=== PATIENT | female | born 1935 | race Caucasian/White ===

== ENCOUNTER 2022-02-19 12:06 | Emergency (ER) | payer MEDICARE, SELFPAY ==
[2022-02-19 12:26] VITALS: BP 187/74; PULSE 57; RESP 16; TEMP 36.5; O2SAT 97; BMI 21.0
--- NOTE | 2022-02-19 13:22 | CRLHL7_ITS ---
For Patients: As a result of the Cures Act, medical imaging exams and procedure reports are released immediately into your electronic medical record. You may view this report before your referring provider. If you have questions, please contact your health care provider. INDICATION: Fall and pain. TECHNIQUE: Lumbar spine 3 view COMPARISON: None. FINDINGS: Bones: Diffuse demineralization. No vertebral body height loss. Joints: Multilevel degenerative changes in the form of disc space narrowing, subchondral sclerosis, and marginal osteophyte formation. Grade 1 anterolisthesis of L5 on S1 appears to be the result of pars defects. Partially visualized left hip arthroplasty. Soft tissues: Unremarkable. IMPRESSION: Demineralization and degenerative changes. No vertebral body height loss. Dictated by Dillon Mayfield MD @ 02/19/2022 2:25:39 PM (Electronically Signed)
--- NOTE | 2022-02-19 13:22 | CRLHL7_ITS ---
For Patients: As a result of the Cures Act, medical imaging exams and procedure reports are released immediately into your electronic medical record. You may view this report before your referring provider. If you have questions, please contact your health care provider. INDICATION: Fall and injury. TECHNIQUE: Sacrum and coccyx, 3 views. COMPARISON: None. FINDINGS: Bones: The bones are demineralized. No displaced fracture. Joint spaces: Degenerative changes of the included lumbar spine and both sacroiliac joints. Minimal anterolisthesis of L5 on S1 could be the result of pars defects. Left hip arthroplasty in expected position. Degenerative changes of the right hip. Soft tissues: Unremarkable. IMPRESSION: No acute or significant findings. Dictated by Dillon Mayfield MD @ 02/19/2022 2:26:37 PM (Electronically Signed)
--- NOTE | 2022-02-19 13:41 | ED.NURSE ---
Pt interrupted short story writer during nursing assessment to express her frustration with the wait time. Pt states, Why haven't they taken me for an x-ray, I've been waiting 30 minutes!. Pt states to short story writer that, You need to call in more workers if it's busy. It doesn't look busy!. Pt states she will leave the ER if her x-ray is not done soon. MD aware.
--- OUTSIDE RECORDS SUMMARY | 2022-02-19 14:13 | XMS_ITS | Clinical Summary ---
:1935 Author Organization [employer] [facility] [employer] [facility] [place] [address] Care Team Providers Name Role Phone Temi Ibarra MD Primary Care Provider [phone] Allergies Active Allergy Reactions Severity Noted Date Comments Amlodipine Syncope, Vomiting 04/30/2011 Lisinopril Cough 02/05/2011 cough Penicillins 11/03/2007 Sulfa (Sulfonamide Antibiotics) 8 Medications Medication Sig Dispensed Refills Start End Status Date Date aspirin chewable Chew 81 mg by 0 Active 81 mg chewable mouth once daily tablet with a meal. calcium Take 1 Tablet by 0 Act paris carbonate-vitamin mouth once daily. D3, 500 mg-400 units, (Calcium 500 With D) tablet mv-mn/folic Take 1 Capsule by 0 Active ac/calcium/vit K1 mouth once daily. (WOMEN'S 50 PLUS MULTIVITAMIN ORAL) nitroglycerin Place 1 Tablet 25 tablet. 3 05/14/19 Active (NITROSTAT) 0.4 (0.4 mg) under the 22 mg sublingual tongue every 5 tabletIndications minutes if needed : STEMI involving for Chest Pain. right coronary artery (HC) atorvastatin Take 1 Tablet (40 90 tablet. 3 06/14/19 Active (LIPITOR) 40 mg mg) by mouth at 22 tabletIndications bedtime. : STEMI involving right coronary artery (HC) clopidogreL Take 1 Tablet (75 90 tablet. 3 06/14/19 Active (PLAVIX) 75 mg mg) by mouth once 22 tabletIndications daily. : STEMI involving right coronary artery (HC) alendronate Take 1 Tablet (70 12 Tablet 3 07/25/19 Active (FOSAMAX) 70 mg mg) by mouth once 22 tabletIndications a week in the : Osteoporosis morning. Take on without current empty stomach with pathological full glass of fracture, water every unspecified Saturday. Do not osteoporosis type lie down for 1 hr. triamcinolone APPLY TO AFFECTED 80 g 3 12/23/19 Active (ARISTOCORT; AREA(S) TOPICALLY 22 KENALOG) 0.1 % 3 TIMES DAILY creamIndications: Dermatitis gabapentin TAKE 2 CAPSULES BY 720 Capsule 3 01/23/20 Active (NEURONTIN) 100 MOUTH IN THE 22 mg MORNING 3 CAPSULES capsuleIndication BY MOUTH MIDDAY, s: Paresthesia AND 3 CAPSULES BY MOUTH IN THE EVENING losartan (COZAAR) Take 1 Tablet (100 90 Tablet 3 01/30/20 Active 100 mg mg) by mouth once 22 tabletIndications daily. : Essential hypertension carvediloL Take 1 Tablet 180 Tablet 3 02/13/20 Acti ve (COREG) 12.5 mg (12.5 mg) by mouth 22 tabletIndications two times daily : HTN with meals. (hypertension) losartan (COZAAR) Take 1 Tablet (50 90 Tablet 3 06/14/1901/05 Discontinued 50 mg mg) by mouth once (* Medication tabletIndications daily. Please call adjustment) : STEMI involving the [facility] coronary clinic to schedule artery (HC) your echocardiogram and follow up appointment, thanks carvediloL Take 1 Tablet 180 Tablet 3 07/14/19 Disc ontinued (COREG) 6.25 mg (6.25 mg) by mouth 022 (*Medication tabletIndications 2 times daily with adjustment) : Hypertension meals. gabapentin TAKE 2 CAPSULES BY 720 Capsule 0 01/01/20 Discontinued (NEURONTIN) 100 MOUTH IN THE 022 ( Reorder mg MORNING 3 CAPSULES ( E-cancel not capsuleIndication BY MOUTH MIDDAY, sent)) s: Paresthesia AND 3 CAPSULES BY MOUTH IN THE EVENING Active Problems Problem Noted Date Enlarged and hypertrophic nails 04/21/2020 Claw toe, right 04/21/2020 Lymphocytic colitis 06/02/2019 Overview: flexible sigmoidoscopy 05/2019 lymphocyti c colitis Claw toe, acquired, unspecified laterality 02/12/2019 Diverticulitis of colon (without mention of hemorrhage ) 11/27/2010 Diverticulosis of colon (without mention of hemorrhage ) 11/27/2010 Allergic rhinitis, cause unspecified 08/08/2009 Osteoarthrosis, unspecified whether generalized or loc alized, unspecified 11/03/2007 site Overview: S/P hip replacement Osteoporosis, unspecified 11/03/2007 Overview: Improved after 5 years of fosamax. [address] stopping fosamax and recheck in 2 years. Deepa Suazo M.D. 08/18/2014 8: 52 PM health care maintenance 11/03/2007 Overview: Dexa 2007, osteoporosis, will repeat 201 5. colonoscopy 2005, will get BE in 2011 or 2012 Had shingles about 07/2011. 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 10/27/2018 Diverticulitis of colon (without mention of hemorrhage) 06/0611/21/2009 Bacterial pneumonia, unspecified 10/21/2006 010 Encounters Date Type Specialty Care Team Description 02/12/2022 Office Visit Temi Ibarra (Bp has MD Shannan been high at ho me); Medication Key gement ([facility] states they hav e attempted to re ach out to have a new s cript sent to them fo r the Carvedilol as i nsurance wants it sent t here rather than [facility] 02/12/2022 Travel 02/05/2022 Diana Martin, Arjunill Be uest; CARVEDILOL 01/29/2022 Telephone Temi Ibarra MD 01/29/2022 Nurse/Clinic Staff Temi Ibarra Blood Pressure Only MD Shannan 01/22/2022 Office Visit Temi Ibarra Medication M anagement; MD Shannan Sleep Problem ( Been having problems with sleep) 01/22/2022 Travel 12/27/2021 Refill FredTemi madrid MD (Gabapentin) 12/19/2021 Refill FredTemi madrid MD (Triamcinolone) 11/29/2021 Nurse/Clinic Staff Immunizat ion/Injection Only (COVID-19 vacci ne) 11/29/2021 Travel from Last 3 Months Immunizations Name Administration Dates Next Due AMB INFLUENZA IIV3 (AGE 65+ YRS) PF 02/11/2018, 02/26/2017 (Flu Clinic Only) AMB Influenza, IIV3 (Age >=3 03/11/2013, 03/02/2010, 009, years)(Flu Clinic Only) 03/08/2008 Amb Influenza, Inact (High-dose 01/28/2020 Quadrivalent) (Flu Clinic Only) Amb Influenza, Inact (High-dose) (Flu 03/01/2016 Clinic Only) COVID-19 vaccine ([employer] 11/29/2021 30mcg/0.3mL) 12YO+ ALEXANDRO-SUCROSE PF, MDV COVID-19 vaccine ([employer] 03/01/2021, 07/02/2020, 30mcg/0.3mL) PF, MDV Influenza A (H1N1), Inactivated (Age 0105/16/2009 >=3 Years) Influenza, High-dose Inactivated 03/16/2015, 01/18/2014 Influenza, IIV3 (Age >=3 years) 03/04/2012, 02/05/2011, 03/06, 03/13/2006, 03/13/2005, 02/24/2004, 03/04/2003 Influenza, Inactivated AIIV4 (Age 65+ 01/22/2022, 02/22/2021 Years) Preserv Free Pneumococcal Poly,23-Valent 11/17/2003 (Pneumovax) Pneumococcal conj 13-Valent (Prevnar 08/17/2014 13) Td (Age >=7 Years) 08/11/1999 Td, Preservative Free (age >= 7 11/27/2010 Years) Tdap 03/04/2012 Zoster (Shingrix-RZV, recombinant) 11/12/2018, 09/01/2018 Zoster (Zostavax-ZVL, live) 07/27/2016 Family History Medical History Relation Name Comments Heart Disease Father Cancer-breast Other x 2 Maternal Cancer-breast Sister 2 Relation Name Status Comments Father (Age 56) [place] Mother (Age 86) liver cancer Other Sister 1 multiple myeloma Sister 2 Social History Tobacco Use Types Packs/Day Years Used Date Former Smoker Smokeless Tobacco: Never Used Tobacco Cessation: Counseling Given: Yes Comments: Quit smoking 17 years ago 10/01 Alcohol Use Standard Drinks/Week Comments Yes 0 (1 standard drink = 0.6 oz pure alcoho l) rarely Alcohol Habits Answer Date Recorded How often do you have a drink containing alcohol? Monthly or less 09/02/2018 How many drinks containing alcohol do you have on a 1 or 2 09/02/2018 typical day when you are drinking? How often do you have six or more drinks on one Never 09/02/2018 occasion? Comment: rarely 10/29/2017 Sex Assigned at Date Recorded Not on file COVID-19 Exposure Response Date Recorded In the last 10 days, have you been in contact with No / Unsu re 02/12/2022 2:19 PM CDT someone who was confirmed or suspected to have Coronavirus/COVID-19? Obstetrics History Para Term AB IAB SAB Ectopic Multiple Living Live Births 6 6 5 1 5 Date Outcome GA Total Labor/2nd/3rd Weight Sex Delivery Anes PTL Pamela A 1 A5 Name Clin Labor Term Term Term Term Term Last Filed Vital Signs Vital Sign Reading Time Taken Comments Blood Pressure 193/98 02/12/2022 2:36 PM CDT home cuff Pulse 61 02/12/2022 2:36 PM CDT Temperature 36.9 ??C (98.5 ??F) 05/16/2021 8:00 AM IN STORE MARKETING ASSOCIATE Respiratory Rate 20 05/29/2021 12:00 PM IN STORE MARKETING ASSOCIATE Oxygen Saturation 99% 02/12/2022 2:33 PM CDT Inhaled Oxygen Concentration - - Weight 52.8 kg (116 lb 6.4 oz) 02/12/2022 2:33 PM CDT Height 157.5 cm (5' 2) 05/29/2021 12:00 PM IN STORE MARKETING ASSOCIATE Body Mass Index 21.29 05/29/2021 12:00 PM IN STORE MARKETING ASSOCIATE Plan of Treatment Upcoming Encounters Date Type Specialty Care Team Description 04/09/2022 Orders Only [facility] [place] 04/09/2022 Orders Only [facility] [place] Universal Grinder Operator 04/17/2022 Office Visit Reese Newsome MD [address] [place] [address] [place] [address], [place] [address] (Wo rk) Health Maintenance Due Date Last Done Comments Medicare Wellness for age 65+ 09/02/2019 09/02/2018, 2016 BMI (ht and wt on same day) for 10/12/2021 10/12/2020, 09/04, age 18+ 05/08/2019, Additional history exists COVID-19 vaccine series (5 - 01/24/2022 11/29/2021, 021, Booster for Pfizer series) 07/02/2020, Additiona l history exists Tetanus booster 03/04/2022 03/04/2012, 11/27/2010, 08/11/1999 Depression screening for age 12+ 05/31/2022 05/31/2021, , 05/29/2021, Additional history exists Tdap Completed 03/04/2012 Pneumococcal series for age 65+ Completed 08/17/2014, 11/03 Zoster (shingles) series for age Completed 11/12/2018, , 50+ 07/27/2016 DEXA/DXA scan for age 65+ Completed 01/27/2019, 08/20/2016 , 08/17/2014, Additional history exists Influenza for age 65+ Completed 01/22/2022, 02/22/2021, 01/28/2020, Additional history exists Procedures Procedure Name Priority Date/Time Associated Diagnosis Comme nts CBC WITH AUTO Routine 02/12/2022 3:05 PM HTN (hyperten jaymie) Results for this DIFFERENTIAL CDT STEMI involving procedure ar e in right coronary the results artery (HC) section. HEPATIC FUNCTION Routine 02/12/2022 3:05 PM HTN (hyperte nsion) Results for this PANEL CDT STEMI involving procedure ar e in right coronary the results artery (HC) section. LIPID PANEL W REFLEX Routine 02/12/2022 3:05 PM HTN (hyp ertension) Results for this MEASURED LDL CDT STEMI involving procedure ar e in right coronary the results artery (HC) section. CBC WITH AUTO Routine 02/12/2022 3:05 PM HTN (hyperten jaymie) Results for this DIFFERENTIAL CDT STEMI involving procedure ar e in right coronary the results artery (HC) section. BASIC METABOLIC PANEL Routine 02/12/2022 3:05 PM Unspecified Results for this CDT essential procedure are i n hypertension the results section. from Last 3 Months Results (ABNORMAL) CBC WITH AUTO DIFFERENTIAL (02/12/2022 3:05 PM CDT) [facility] Method Time Signature WHITE BLOOD 7.4 4.5 - 02/12/2022 [facility] COUNT 11.0 3:09 PM T [place] [facility] RED BLOOD COUNT 4.85 4.00 - 02/12/2022 [facility] 5.20 3:09 PM T [facility] CLINIC HEMOGLOBIN 14.4 12.0 - 02/12/2022 [facility] 16.0 g/dL 3:09 PM [facility] HEMATOCRIT 43.7 33.0 - 02/12/2022 [facility] 51.0 % 3:09 PM [facility] MCV 90 80 - 100 02/12/2022 [facility] fL 3:09 PM [facility] MCH 29.7 26.0 - 02/12/2022 [facility] 34.0 pg 3:09 PM [facility] MCHC 33.0 32.0 - 02/12/2022 [facility] 36.0 g/dL 3:09 PM [facility] RDW 15.4 11.5 - 02/12/2022 [facility] 15.5 % 3:09 PM [facility] PLATELET COUNT 210 140 - 440 [facility]cu 3:09 PM [facility] MPV 11.4 (H) 6.5 - 02/12/2022 [facility] 11.0 fL 3:09 PM [facility] % NEUT 67.0 % 02/12/2022 [facility] 3:09 PM T [facility] % LYMPH 20.2 % 02/12/2022 [facility] 3:09 PM T [facility] % MONO 9.4 % 02/12/2022 [facility] 3:09 PM T [facility] % EOS 3.3 % 02/12/2022 [facility] 3:09 PM CDT [facility] % BASO 0.1 % 02/12/2022 [facility] 3:09 PM CDT [facility] ABSOLUTE 4.9 1.7 - 7.0 02/12/2022 [facility] NEUTROPHILS thou/cu 3:09 PM CDT [facility] CLINIC ABSOLUTE 1.5 0.9 - 2.9 02/12/2022 [facility] LYMPHOCYTES thou/cu 3:09 PM CDT [facility] CLINIC ABSOLUTE 0.7 <0.9 02/12/2022 [facility] MONOCYTES thou/cu 3:09 PM CDT [facility] CLINIC ABSOLUTE 0.2 <0.5 02/12/2022 [facility] EOSINOPHILS thou/cu 3:09 PM CDT [facility] CLINIC ABSOLUTE 0.0 <0.3 02/12/2022 [facility] BASOPHILS thou/cu 3:09 PM CDT [facility] CLINIC Specimen Anatomical Collection Method / Collection Time Recei good Time (Source) Location / Volume Laterality Blood BLOOD SPECIMEN / Venipuncture / 02/12/2022 3:05 2021 3:06 Unknown Unknown PM CDT PM CDT Temi Ibarra MD HEMATOLOGY Performing Organization Address City/State/ZIP Code Phon e Number [facility] [address] [place] [address] LIPID PANEL W REFLEX MEASURED LDL (02/12/2022 3:05 PM CDT) [facility] Method Time Signature CHOLESTEROL,TOTAL 126 100 - 199 02/14/2022 [facility] mg/dL 3:33 PM CDT [facility] TRIGLYCERIDES 114 <150 02/14/2022 [facility] mg/dL 3:33 PM CDT [facility] HDL CHOLESTEROL 43 >40 mg/dL 02/14/2022 [facility] 3:33 PM CDT [facility] NON-HDL 83 <145 02/14/2022 [facility] CHOLESTEROL mg/dl 3:33 PM CDT [facility] CHOL/HDL RATIO 2.93 <4.50 02/14/2022 [facility] 3:33 PM CDT [facility] LDL CHOLESTEROL 60 <=130 02/14/2022 [facility] mg/dL 3:33 PM CDT [facility] VLDL CHOLESTEROL 23 <=30 02/14/2022 [facility] mg/dL 3:33 PM CDT [facility] PROVIDER ORDERED RANDOM 02/14/2022 [facility] STATUS 3:33 PM CDT [facility] Specimen Anatomical Collection Method / Collection Time Recei good Time (Source) Location / Volume Laterality Blood BLOOD SPECIMEN / Venipuncture / 02/12/2022 3:05 2021 3:06 Unknown Unknown PM CDT PM CDT Temi Ibarra MD CHEMISTRY Performing Organization Address City/State/ZIP Code Phon e Number [facility] [address] [place] [address] [facility] LAB[facility]ORY HEPATIC FUNCTION PANEL (02/12/2022 3:05 PM CDT) P athologist Signature ALBUMIN 3.8 3.2 - 4.6 02/14/2022 [facility] g/dL 3:33 PM CDT [facility] PROTEIN,TOTAL 6.5 6.0 - 8.0 02/14/2022 [facility] g/dL 3:33 PM CDT [facility] GLOBULIN 2.7 2.0 - 3.7 02/14/2022 [facility] g/dL 3:33 PM CDT [facility] A/G RATIO 1.4 1.0 - 2.0 02/14/2022 [facility] 3:33 PM CDT [facility] BILIRUBIN,TOTAL 0.5 0.2 - 1.2 02/14/2022 [facility] mg/dL 3:33 PM CDT [facility] BILIRUBIN,DIRECT 0.2 0.1 - 0.5 02/14/2022 [facility] mg/dL 3:33 PM CDT [facility] BILIRUBIN,INDIRE 0.3 0.2 - 0.8 02/14/[address] [facility] [address] mg/dL 3:33 PM CDT [facility] ALK PHOSPHATASE 74 50 - 136 02/14/2022 [facility] IU/L 3:33 PM CDT [facility] ALT (SGPT) 19 8 - 45 02/14/2022 [facility] IU/L 3:33 PM CDT [facility] AST (SGOT) 24 2 - 40 02/14/2022 [facility] IU/L 3:33 PM CDT [facility] Specimen Anatomical Collection Method / Collection Time Recei good Time (Source) Location / Volume Laterality Blood BLOOD SPECIMEN / Venipuncture / 02/12/2022 3:05 2021 3:06 Unknown Unknown PM CDT PM CDT Temi Ibarra MD CHEMISTRY Performing Organization Address City/State/ZIP Code Phon e Number [facility] [address] [place] [id number] [facility] LABORATORY (ABNORMAL) BASIC METABOLIC PANEL (02/12/2022 3:05 PM CDT) P athologist Signature SODIUM 143 135 - 145 02/14/2022 [facility] mmol/L 3:31 PM CDT [facility] POTASSIUM 4.9 3.5 - 5.0 02/14/2022 [facility] mmol/L 3:31 PM CDT [facility] CHLORIDE 107 98 - 110 02/14/2022 [facility] mmol/L 3:31 PM CDT [facility] CO2,TOTAL 26 21 - 31 02/14/2022 [facility] mmol/L 3:31 PM CDT [facility] ANION GAP 10 5 - 18 02/14/2022 [facility] 3:31 PM CDT [facility] GLUCOSE 90 65 - 100 02/14/2022 [facility] mg/dL 3:31 PM CDT [facility] CALCIUM 9.4 8.5 - 10.5 02/14/2022 [facility] mg/dL 3:31 PM CDT [facility] BUN 20 8 - 25 02/14/2022 [facility] mg/dL 3:31 PM CDT [facility] CREATININE 0.80 0.57 - 02/14/2022 [facility] 1.11 mg/dL 3:31 PM CDT [facility] BUN/CREAT RATIO 25 (H) 10 - 20 02/14/2022 [facility] 3:31 PM CDT [facility] eGFR 72 (L) >90 02/14/2022 [facility] mL/min/1.7 3:31 PM CDT [facility] 3m2 [facility] Comment: As of 2021, eGFR is calcu lated by the CKD-EPI creatinine equation without race adjustment. eGFR can be inf luenced by muscle mass, exercise, and diet. The reported eGFR is an estimation only and is only applicable if the renal function is stable. Specimen Anatomical Collection Method / Collection Time Recei good Time (Source) Location / Volume Laterality Blood BLOOD SPECIMEN / Venipuncture / 02/12/2022 3:05 2021 3:06 Unknown Unknown PM CDT PM CDT Temi Ibarra MD CHEMISTRY Performing Organization Address City/State/ZIP Code Phon e Number [facility] [address] [place] [address] [facility] [address] LABORATORY from Last 3 Months Insurance Payer Benefit Plan / Subscriber ID Effective Dates Phone Addre ss Type Group [facility] MR [id number] 2021-Present [address] [address] [place] [address] Advance Directives Latest Code Status on File Code Status Date Activated Date Inactivated Comments DNR 05/13/2021 4:25 PM 05/16/2021 3:23 PM Code Status Discussion: Reviewed Preferences Full Code 05/12/2021 2:01 PM 05/13/2021 4:25 PM Code Status Discussion: Reviewed Preferences Care Teams Infrastructure Manager Relationship Specialty Start Date End Date Temi Ibarra MD PCP - General Family Practice 06/25/17 [address] [place] [address]
--- NOTE | 2022-02-19 14:38 | ED_ITS ---
HPI - Fall General Date Seen: 02/19/22 Chief Complaint: Fall/Minor Trauma Stated Complaint: Lower back/spine pain Time Seen by Provider: 02/19/22 13:03 Source: patient Mode of arrival: ambulatory Limitations: no limitations History of Present Illness HPI Narrative: Patient is a delightful 86-year-old female who fell on her buttocks approximately 1 week ago, she has had pain whenever she sits but there is no pain when she stands, which she presses over her sacral area she notices some some discomfort. She denies any numbness tingling weakness going into her legs, there is no bowel or bladder symptoms. She fell backwards while she was doing some gardening, onto the ground. No other injuries reported, she did call her doctor but was unable to go in and be seen, so came to the emergency department. She has been trying some Aleve twice daily for this and it has been helping. There is a history of osteoporosis and she is on medication for this, aside she tells me that she does have high blood pressure and is working with her doctor in trying to get this under control with her next appointment approximately 2 weeks MD complaint: fall Related Data Home Medications Medication Instructions Recorded Confirmed alendronate 70 mg tablet 70 mg PO .weekly 02/19/22 02/19/22 aspirin 81 mg capsule 81 mg PO DAILY 02/19/22 02/19/22 atorvastatin 40 mg tablet 40 mg PO QHS 02/19/22 02/19/22 calcium carbonate 400 mg calcium 400 mg PO DAILY 02/19/22 02/19/22 (1,000 mg) chewable tablet carvedilol 12.5 mg tablet 12.5 mg PO Q12H 02/19/22 02/19/22 clopidogrel 75 mg tablet 75 mg PO DAILY 02/19/22 02/19/22 gabapentin 100 mg capsule 200 mg PO TID 02/19/22 02/19/22 glucosamine NOg-mzx-hmcnfwtixvz 1 tab PO DAILY 02/19/22 02/19/22 500 mg-167 mg-400 mg tablet losartan 100 mg tablet 100 mg PO DAILY 02/19/22 02/19/22 multivitamin 1 tab PO DAILY 02/19/22 02/19/22 Allergies Allergy/AdvReac Type Severity Reaction Status Date / Time Sulfa (Sulfonamide Allergy Mild Nausea Verified 02/19/22 12:21 Antibiotics) Penicillins Allergy Unknown Rash Verified 02/19/22 12:21 Review of Systems Status of ROS: Reports: 6 or more systems reviewed and unremarkable except as noted in History and below [facility] Social History Smoking Status: Former smoker What tobacco products do you use: cigarettes Smoking quit date/years: <= 15 years ago Do you use any of these nicotine containing products: None Second hand tobacco smoke exposure: No How often do you have a drink containing alcohol: never AUDIT-C Alcohol total score: 0 Non-prescribed substance use: denies use service: No Exam Narrative: Exam Narrative: Patient is delightful seen in room 7 in no apparent distress she is sitting on the gurney, she is able to stand and walk normally for me heel and toe walking are normal, forward flexion is hands within 6 in of the floor, her extensions normal lateral flexion and rotation all normal she does have some scoliosis noted of her spine. On palpation there is no tenderness to palpation or percussion over the spine itself lumbar thoracic, but over her sacrum she does have some mild tenderness to percussion. There is no bruising noted, but no other abnormality, SLR is are negative to 90? sitting, augmentation reveals no increased response, and her knee jerks and ankle jerks are 0/4 bilaterally with normal power in her extremities. Pulses are normal, sensation is normal all the signature dermatomal areas. Const: Vital Signs, click to edit/add: Vital Signs - 24 hr 02/19/22 12:26 Temperature 97.7 F Pulse Rate [Pulse Oximeter] 57 L Respiratory Rate 16 Blood Pressure [Ri ght Upper Arm] 187/74 H Pulse Oximetry 97 Oxygen Delivery Me thod Room Air Course Reevaluation(s) Reevaluation #1: I saw her and evaluated her x-rays of her lumbar spine two view, and sacrum two view. which sure show obvious osteopenia. There is some LF 5 S1 narrowing. So me sclerosis, no obvious significant compression deformities are noted, or malalignment is knee seen. No fracture seen, but sacral insufficiency fracture cannot be ruled out. Vital Signs Vital signs: Initial Vital Signs Temperature 97.7 F 02/19/22 12:26 Temperature Source Temporal Artery Scan 02/19/22 12:26 Pulse Rate 57 L 02/19/22 12:26 Pulse Rhythm 02/19/22 12:26 Pulse Strength 3+ Normal 02/19/22 12:26 Respiratory Rate 16 02/19/22 12:26 Blood Pressure 187/74 H 02/19/22 12:26 Blood Pressure Mean 111 02/19/22 12:26 Blood Pressure Position Sitting 02/19/22 12:26 Pulse Oximetry 97 02/19/22 12:26 Oxygen Delivery Method 02/19/22 12:26 Vital Signs Temperature 97.7 F 02/19/22 12:26 Pulse Rate 57 L 02/19/22 12:26 Respiratory Rate 16 02/19/22 12:26 Blood Pressure 187/74 H 02/19/22 12:26 Pulse Oximetry 97 02/19/22 12:26 Oxygen Delivery Method 02/19/22 12:26 Temperature 97.7 F 02/19/22 12:26 Pulse Rate 57 L 02/19/22 12:26 Respiratory Rate 16 02/19/22 12:26 Blood Pressure 187/74 H 02/19/22 12:26 Pulse Oximetry 97 02/19/22 12:26 Oxygen Delivery Method 02/19/22 12:26 MDM - Fall MDM Narrative Medical decision making narrative: Patient is seen and assessed, consideration is given for multiple diagnosis which include abdominal aortic aneurysm, spinal stenosis, lumbar compression fracture, other type of lumbar fracture, sacral superficially fracture, pelvic fracture, hip fracture, cauda equina syndrome among others. Medical Records Attestation: I reviewed the patient's medical records. Imaging Data Lumbar spine: Attestation: I have reviewed the pertinent imaging results. My impression: No acute abnormality, chronic findings as discussed above. Discharge Plan Discharge Clinical Impression: Sacral insufficiency fracture Patient Disposition: Home, Self-Care Condition: Stable Additional Instructions: Home rest you can take Tylenol 650 mg in the morning, and then may take your Tylenol p.m. at night time. In you to take your leave as he needed. And follow-up with Dr. Ibarra in 2 weeks for recheck. You are right that this will just take some time to heal. Usually the discomfort lasts anywhere from 6-12 months with slow improved Prescriptions: No Action carvedilol 12.5 mg tablet 12.5 mg PO Q12H clopidogrel 75 mg tablet 75 mg PO DAILY Label Comments: TAKE 1 TABLET BY MOUTH DAILY losartan 100 mg tablet 100 mg PO DAILY atorvastatin 40 mg tablet 40 mg PO QHS gabapentin 100 mg capsule 200 mg PO TID Label Comments: 200am, 300mg afternoon, 300mg qhs alendronate 70 mg tablet 70 mg PO .weekly aspirin 81 mg capsule 81 mg PO DAILY multivitamin Tablet 1 tab PO DAILY glucosamine TXs-udy-[id number] 500-167-400 mg tablet 1 tab PO DAILY Rx Instructions: give with meal/snack calcium carbonate 400 mg calcium (1,000 mg) tablet,chewable 400 mg PO DAILY Follow Up/Referrals: Temi Ibarra MD [Primary Care Provider] - Stand Alone [facility]
== END 2022-02-19 14:47 | disposition home or self-care (01) ==
PROVIDERS: Emergency Provider Family Medicine; PCP Family Medicine
DX: M48.48XA Fatigue fracture of vertebra, sacral and sacrococcygeal region, initial encounter for fracture (principal); W18.39XA Other fall on same level, initial encounter; Y92.89 Other specified places as the place of occurrence of the external cause
CPT/HCPCS: 72100; 72220; 99283

== ENCOUNTER 2022-02-26 17:47 | Emergency (ER) | payer MEDICARE, SELFPAY ==
[2022-02-26] VITALS (12 sets, daily range): BP systolic 163–222; BP diastolic 70–95; PULSE 48–60; RESP 16–18; TEMP 36.3; O2SAT 96–98; BMI 21.0
--- NOTE | 2022-02-26 18:10 | ED_ITS ---
HPI - General Adult General Time Seen by Provider: 18:11 Date Seen: 02/26/22 Chief complaint: High Blood Pressure Stated complaint: Very High BP, Feet Tingling Time Seen by Provider: 02/26/22 18:08 Source: patient, RN notes reviewed and old records reviewed Mode of arrival: ambulatory Limitations: no limitations History of Present Illness HPI narrative: Nora is a very pleasant 86-year-old female with a history of STEMI, bradycardia intubation and flying to [place] in May of this year who comes to the emergency room for elevated blood pressures. Patient states that her blood pressure has been elevated over the past month and that Dr. Ibarra of the [facility] has been ?working on it?. She is currently on carvedilol and losartan. She notes that she noticed her blood pressure was elevated at home and had a dull slight headache on the top of her head. She denied any visual changes with this. She adamantly denies any chest pain or shortness of breath. She does state that she feels ?shaky all over?. She also notes that there is tingling on top of her feet. Upon further discussion patient was here within the past few days after falling onto the ground and hurting her low back. She was told that she had a fracture line by the physician. She has been taking Tylenol and Aleve every 5 hours for low back discomfort. Has not noticed any lower extremity edema but feels like she has been retaining some fluid. She has not been short of breath. She states that she has a tingling on the top of both feet. Again patient denies any visual changes. No difficulty with speech or movement. No chest pain, no abdominal pain. Related Data Home Medications Medication Instructions Recorded Confirmed alendronate 70 mg tablet 70 mg PO .weekly 02/19/22 02/19/22 aspirin 81 mg capsule 81 mg PO DAILY 02/19/22 02/19/22 atorvastatin 40 mg tablet 40 mg PO QHS 02/19/22 02/19/22 calcium carbonate 400 mg calcium 400 mg PO DAILY 02/19/22 02/19/22 (1,000 mg) chewable tablet carvedilol 12.5 mg tablet 12.5 mg PO Q12H 02/19/22 02/19/22 clopidogrel 75 mg tablet 75 mg PO DAILY 02/19/22 02/19/22 gabapentin 100 mg capsule 200 mg PO TID 02/19/22 02/19/22 glucosamine YKy-mbw-yipfusvkkwa 1 tab PO DAILY 02/19/22 02/19/22 500 mg-167 mg-400 mg tablet losartan 100 mg tablet 100 mg PO DAILY 02/19/22 02/19/22 multivitamin 1 tab PO DAILY 02/19/22 02/19/22 Allergies Allergy/AdvReac Type Severity Reaction Status Date / Time Sulfa (Sulfonamide Allergy Mild Nausea Verified 02/19/22 12:21 Antibiotics) Penicillins Allergy Unknown Rash Verified 02/19/22 12:21 Review of Systems Status of ROS: Reports: 10 or more systems reviewed and unremarkable except as noted in History and below Const: Denies: fever or chills Eyes: Denies: change in vision or blurry vision ENMT: Denies: throat pain, neck pain, difficulty swallowing or vertigo Cardio: Denies: chest pain, palpitations, edema, swelling of feet/ankles or shortness of breath with exertion Resp: Denies: shortness of breath, cough or wheezing GI: Denies: abdominal pain, nausea, vomiting, diarrhea or difficulty swallowing : Denies: painful urination or urinary frequency Musculo: Reports: back pain (Low back); Denies: neck pain Neuro: Reports: headache (Very mild and on the top of her head.) and other (Tingling on the dorsum of both feet.); Denies: dizziness, vertigo, confusion, behavioral changes or slurred speech Endo: Denies: excessive urination (Describes decreased urination) Allergy/Immuno: Denies: wheezing PFSH PFSH Social History Smoking Status: Former smoker What tobacco products do you use: cigarettes Smoking quit date/years: <= 15 years ago Do you use any of these nicotine containing products: None Second hand tobacco smoke exposure: No How often do you have a drink containing alcohol: never AUDIT-C Alcohol total score: 0 Non-prescribed substance use: denies use service: No Exam Narrative: Exam Narrative: Patient is alert and oriented. Very pleasant woman. Lively and engaging in conversation. Pupils are equal round reactive. EOM is full. Oral cavity with moist mucous membranes. Face is symmetrical. Neck is supple. Heart with a regular rhythm. Slightly bradycardic rate. No additional heart sounds. Lungs are clear bilaterally. Abdomen soft nontender. No pulsating mass. Lower extremities without edema. Sensation is intact on the dorsum of both feet. Moving all extremities. Pedal pulses are intact both both feet and are symmetrical. Retinal examination shows no flame hemorrhages or edema. Const: Vital Signs, click to edit/add: Vital Signs - 24 hr 02/26/22 17:56 02/26/22 18:22 02/26/22 19:24 Temperature 97.3 F L Pulse Rate Pulse Rate [Right Pulse Oximeter] 57 L 53 L Respiratory Rate 18 16 Blood Pressure Blood Pressure [Ri ght Upper Arm] 222/90 H 184/77 H Pulse Oximetry 97 98 98 Oxygen Delivery Me thod Room Air Room Air 02/26/22 19:32 02/26/22 20:05 02/26/22 20:18 Temperature Pulse Rate 60 48 L Pulse Rate [Right Pulse Oximeter] Respiratory Rate 16 16 Blood Pressure 180/70 H 185/94 H 177/72 H Blood Pressure [Ri ght Upper Arm] Pulse Oximetry 98 97 96 Oxygen Delivery Me thod 02/26/22 20:32 02/26/22 20:47 Temperature Pulse Rate 51 L 51 L Pulse Rate [Right Pulse Oximeter] Respiratory Rate Blood Pressure 169/81 H 181/78 H Blood Pressure [Ri ght Upper Arm] Pulse Oximetry 96 96 Oxygen Delivery Me thod Course Reevaluation(s) Reevaluation #1: Patient has been resting and states that she is actually feeling much better. She does continue to state that her bottom of her feet bilaterally are tingling. I do question her about feeling weak when she is walking and she states that she does. She states that she has a fracture in her back although I did not see that on her initial x-rays. I think that if she has lower extremity symptoms we should get a CT noncontrast of the lumbar spine. Reevaluation #2: Without any interventions patient's blood pressure has dropped to 184 systolic. She has had complete resolution of her headache. No chest pain. Reevaluation #3: Patient's blood pressure now 164 systolic. No complaints at this time. Vital Signs Vital signs: Initial Vital Signs Temperature 97.3 F L 02/26/22 17:56 Temperature Source Temporal Artery Scan 02/26/22 17:56 Pulse Rate 57 L 02/26/22 17:56 Respiratory Rate 18 02/26/22 17:56 Blood Pressure 222/90 H 02/26/22 17:56 Blood Pressure Mean 134 02/26/22 17:56 Blood Pressure Position Sitting 02/26/22 17:56 Pulse Oximetry 97 02/26/22 17:56 Oxygen Delivery Method 02/26/22 17:56 Vital Signs Temperature 97.3 F L 02/26/22 17:56 Pulse Rate 57 L 02/26/22 17:56 Respiratory Rate 18 02/26/22 17:56 Blood Pressure 222/90 H 02/26/22 17:56 Pulse Oximetry 97 02/26/22 17:56 Oxygen Delivery Method 02/26/22 17:56 Temperature 97.3 F L 02/26/22 17:56 Pulse Rate 51 L 02/26/22 20:47 Respiratory Rate 16 02/26/22 20:05 Blood Pressure 181/78 H 02/26/22 20:47 Pulse Oximetry 96 02/26/22 20:47 Oxygen Delivery Method 02/26/22 19:24 Medical Decision Making MDM Narrative Medical decision making narrative: 1. Hypertension-patient had significantly elevated blood pressure upon her presentation 222/90. Without any interventions blood pressure dropped to 180 shortly there afterwards and down to 164 at 1 point. Patient has had complete resolution of her headache and has no evidence of end organ damage. Her troponin is negative x2. Her EKG does show ST abnormality in the inferior lateral leads, less than 2 mm. I do not believe that this represents ischemia. As patient is feeling better, has never had chest pain. At this time likely blood pressure is secondary to NSAID use. Patient was using Aleve every 5 hours. I did explain that this is acute 12 hour medication but that I would rather she not take it on a continual basis. She agrees with that and I do not think we need to have any further medication tonight. Would recommend however follow-up with her primary MD for a recheck of blood pressure. Of course if she has worsening symptoms upon returning home would have her return to the emergency room. At this time all symptoms have dissipated. 2. Low back pain-patient has no evidence of spine fracture on CT. CT ordered because patient had told me she had a compression fracture and she was experiencing tingling of the feet. However now she tells me that since her heart attack in May she has had tingling of the dorsum of both feet. And that it is more prominent tonight but it is not new. She has full send of motor and sensation at this time. For pain in her back she may use Tylenol. I did offer her a low dose of oxycodone but she is declining at this time. Would recommend ice in lieu of heat. She will need to follow up with her primary MD for ongoing pain needs. Radiological over-read from previous sacrum and lumbar spine show no fractures. Patient is informed of this tonight. 3. Disposition-home with her . Return to the emergency room for worsening symptoms, especially changes in vision, return of headache, increasing blood pressure or chest pain. Note chest x-ray radiological read suggests infiltrate. Patient has no cough, reassuring oxygen levels and is clear to auscultation at this time. Recheck of blood pressure prior to discharge improved. Did explain to patient and her that with elevated blood pressure as high as 222 we would not bring this down rapidly. But rather look for a reduction of approximately 20%. This is been achieved without any medications. They do understand and will follow up with primary MD. I would expect blood pressure to continue to fall as a leave use is discontinued. Medical Records Medical records reviewed: Yes I reviewed the patient's medical records Lab Data Lab results reviewed: Yes I reviewed the patient's lab results Labs: Lab Results 02/26/22 02/26/22 02/26/22 Range/Units 19:16 19:16 19:16 WBC 6.29 (4.50-11.00) K/uL RBC 4.71 (4.00-5.20) m/uL Hgb 13.8 (12.0-16.0) gm/dL Hct 42.9 (33.0-51.0) % MCV 91 (80-100) fL MCH 29 (26-34) pg MCHC 32 (32-36) gm/dL RDW Coeff of Garrick 14.7 (11.5-15.5) % Plt Count 186 (140-440) K/uL Neut % (Auto) 67.2 (42.0-72.0) % Lymph % (Auto) 20.7 (20-44) % [place] % (Auto) 8.4 (0.0-11.0) % Eos % (Auto) 3.2 (0.0-7.0) % Baso % (Auto) 0.3 (0.0-3.0) % Neut # (Auto) 4.23 (1.7-7.0) K/uL Lymph # (Auto) 1.30 (0.90-2.90) K/uL [place] # (Auto) 0.50 (0.00-0.90) K/UL Eos # (Auto) 0.20 (0.00-0.50) K/uL Baso # (Auto) 0.02 (0.00-0.30) K/uL Abs Immat Gran (auto) 0.01 (0.00-0.30) K/uL Sodium 139 (135-149) mmol/L Potassium 3.9 (3.6-5.1) mmol/L Chloride 105 (96-114) mmol/L Carbon Dioxide 28 (20-32) mmol/L BUN 20 (7-30) mg/dL Creatinine 0.7 (0.5-1.5) mg/dL Estimated Creat Clear 31.94 Estimated GFR 84 ml/min Glucose 98 (60-115) mg/dL Calcium 9.5 (8.4-10.6) mg/dL Total Bilirubin 0.5 (0.1-1.5) mg/dL AST 28 (12-35) U/L ALT 18 (4-35) U/L Alkaline Phosphatase 102 (40-150) U/L Troponin I < 0.01 L (0.01-0.04) ng/mL Total Protein 6.7 (6.0-8.3) g/dL Albumin 4.1 (3.3-5.0) g/dL Urine Color Yellow (Yellow) Urine Appearance Clear (Clear) Urine pH 7.0 (5.0-8.5) Ur Specific [place] 1.010 (1.000-1.030) Urine Protein Negative (Negative) Urine Glucose (UA) Negative (Negative) Urine Ketones Negative (Negative) Urine Blood Trace-intact A (Negative) Urine Nitrite Positive A (Negative) Urine Bilirubin Negative (Negative) Urine Urobilinogen 0.2 (0.2-1.0) Ur Leukocyte Esterase Trace A (Negative) Urine RBC 0-2 (0-2) Urine WBC 0-2 (0-5) Ur Squamous Epith Cells None (None-Few) Urine Bacteria Moderate A (None) POC Troponin I (0.01-0.04) ng/ml 02/26/22 Range/Units 21:08 WBC (4.50-11.00) K/uL RBC (4.00-5.20) m/uL Hgb (12.0-16.0) gm/dL Hct (33.0-51.0) % MCV (80-100) fL MCH (26-34) pg MCHC (32-36) gm/dL RDW Coeff of Garrick (11.5-15.5) % Plt Count (140-440) K/uL Neut % (Auto) (42.0-72.0) % Lymph % (Auto) (20-44) % [place] % (Auto) (0.0-11.0) % Eos % (Auto) (0.0-7.0) % Baso % (Auto) (0.0-3.0) % Neut # (Auto) (1.7-7.0) K/uL Lymph # (Auto) (0.90-2.90) K/uL [place] # (Auto) (0.00-0.90) K/UL Eos # (Auto) (0.00-0.50) K/uL Baso # (Auto) (0.00-0.30) K/uL Abs Immat Gran (auto) (0.00-0.30) K/uL Sodium (135-149) mmol/L Potassium (3.6-5.1) mmol/L Chloride (96-114) mmol/L Carbon Dioxide (20-32) mmol/L BUN (7-30) mg/dL Creatinine (0.5-1.5) mg/dL Estimated Creat Clear Estimated GFR ml/min Glucose (60-115) mg/dL Calcium (8.4-10.6) mg/dL Total Bilirubin (0.1-1.5) mg/dL AST (12-35) U/L ALT (4-35) U/L Alkaline Phosphatase (40-150) U/L Troponin I (0.01-0.04) ng/mL Total Protein (6.0-8.3) g/dL Albumin (3.3-5.0) g/dL Urine Color (Yellow) Urine Appearance (Clear) Urine pH (5.0-8.5) Ur Specific [place] (1.000-1.030) Urine Protein (Negative) Urine Glucose (UA) (Negative) Urine Ketones (Negative) Urine Blood (Negative) Urine Nitrite (Negative) Urine Bilirubin (Negative) Urine Urobilinogen (0.2-1.0) Ur Leukocyte Esterase (Negative) Urine RBC (0-2) Urine WBC (0-5) Ur Squamous Epith Cells (None-Few) Urine Bacteria (None) POC Troponin I 0.01 (0.01-0.04) ng/ml Imaging Data Chest x-ray: Attestation: I have reviewed the pertinent imaging results. Radiologist's impression: Subtle patchy increased lung markings within the right lung base could represent early pneumonia in the correct clinical setting. Fibrotic changes/interstitial thickening could also appear similar. Lumbar spine CT: Attestation: I have reviewed the pertinent imaging results. My impression: No acute fractures. Radiologist's impression: NDINGS: No acute fracture. 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 Diffuse bony demineralization.. No prevertebral soft tissue hematoma or swelling. No soft tissue abnormality is identified. Multilevel lumbar spondylosis most severe at L4-L5 with disc space height loss and endplate sclerotic changes. Multilevel disc bulges causing at least mild spinal canal stenosis. Colonic diverticulosis where visualized. Inferior pole right renal cystic focus. Lung bases are clear. IMPRESSION: No acute fracture. ECG Data Attestation: I personally reviewed and interpreted this ECG as follows: Prior ECG tracings: available for review Interpretation: EKG 1. By my read shows sinus bradycardia rate of 54. ST depression less than 1 mm in the inferior lateral leads. EKG 2. By my read shows sinus bradycardia at a rate of 50. Similar EKG to previous. Discharge Plan Discharge Clinical Impression: Low back pain, Hypertension Patient Disposition: Home, Self-Care Condition: Improved Additional Instructions: . Aleve at this time. Expect blood pressure to continue to drop. Check blood pressure at home and should it start rising again please return to the emergency room. Follow-up with your primary MD for recheck this week. Prescriptions: No Action carvedilol 12.5 mg tablet 12.5 mg PO Q12H clopidogrel 75 mg tablet 75 mg PO DAILY Label Comments: TAKE 1 TABLET BY MOUTH DAILY losartan 100 mg tablet 100 mg PO DAILY atorvastatin 40 mg tablet 40 mg PO QHS gabapentin 100 mg capsule 200 mg PO TID Label Comments: 200am, 300mg afternoon, 300mg qhs alendronate 70 mg tablet 70 mg PO .weekly aspirin 81 mg capsule 81 mg PO DAILY multivitamin Tablet 1 tab PO DAILY glucosamine [id number] 500-167-400 mg tablet 1 tab PO DAILY Rx Instructions: give with meal/snack calcium carbonate 400 mg calcium (1,000 mg) tablet,chewable 400 mg PO DAILY Follow Up/Referrals: Temi Ibarra MD [Primary Care Provider] - Stand Alone [facility]
--- NOTE | 2022-02-26 18:22 | CRLHL7_ITS ---
For Patients: As a result of the Century Cures Act, medical imaging exams and procedure reports are released immediately into your electronic medical record. You may view this report before your referring provider. If you have questions, please contact your health care provider. INDICATION: Chest pain. TECHNIQUE: Chest 1 views. COMPARISON: None. FINDINGS: Cardiovascular and mediastinum: Normal heart size for technique. Atherosclerotic thoracic aorta. Lungs and pleural spaces: Subtle patchy increased lung markings within the right lung base. The lungs are otherwise clear. No pleural effusion or pneumothorax. Bones and soft tissues: No significant findings. IMPRESSION: Subtle patchy increased lung markings within the right lung base could represent early pneumonia in the correct clinical setting. Fibrotic changes/interstitial thickening could also appear similar. Dictated by Heber Alexander MD @ 02/26/2022 6:56:10 PM (Electronically Signed)
--- NOTE | 2022-02-26 19:10 | CRLHL7_ITS ---
For Patients: As a result of the Century Cures Act, medical imaging exams and procedure reports are released immediately into your electronic medical record. You may view this report before your referring provider. If you have questions, please contact your health care provider. INDICATION: Fall, foot tingling. TECHNIQUE: CT lumbar spine without contrast. COMPARISON: None. FINDINGS: No acute fracture. 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 Diffuse bony demineralization.. No prevertebral soft tissue hematoma or swelling. No soft tissue abnormality is identified. Multilevel lumbar spondylosis most severe at L4-L5 with disc space height loss and endplate sclerotic changes. Multilevel disc bulges causing at least mild spinal canal stenosis. Colonic diverticulosis where visualized. Inferior pole right renal cystic focus. Lung bases are clear. IMPRESSION: No acute fracture. Please note that all CT scans at this facility use dose modulation, iterative reconstruction, and/or weight-based dosing when appropriate to reduce radiation dose to as low as reasonably achievable. Dictated by Piyush Judd MD @ 02/26/2022 8:30:47 PM (Electronically Signed)
--- OUTSIDE RECORDS SUMMARY | 2022-02-26 19:10 | XMS_ITS | Clinical Summary ---
:1935 Author Organization [employer] [facility] [employer] [facility] [place] [address] Care Team Providers Name Role Phone Temi Ibarra MD Primary Care Provider [phone] Allergies Active Allergy Reactions Severity Noted Date [...] Discontinued 50 mg mg) by mouth once 22 022 (* Medication tabletIndications daily. Please call adjustment) : STEMI involving the [facility] coronary clinic to schedule artery (HC) your echocardiogram and follow up appointment, thanks carvediloL Take 1 Tablet 180 Tablet 3 07/14/19 Disc ontinued (COREG) 6.25 mg (6.25 mg) by mouth 22 022 (*Medication tabletIndications 2 times daily with adjustment) : Hypertension meals. Active Problems Problem Noted Date Enlarged and [...] Encounters Date Type Specialty Care Team Description 02/20/2022 Refill Temi Ibarra MD (Atorvastatin) 02/19/2022 Orders Only Scanner <No scans attac hed> 02/12/2022 Office Visit Temi Ibarra (Bp has MD Shannan been high at ho nv); Medication Key gement ([facility] states they hav e attempted to re ach out to have a new s cript sent to them fo r the Carvedilol as i nsurance wants it sent t here rather than Seng cosme.) 02/12/2022 Travel 02/05/2022 Diana Martin, Refill Req uest; CARVEDILOL 01/29/2022 Telephone Temi Ibarra Blood Pressu re MD Shannan 01/29/2022 Nurse/Clinic Staff Temi Ibarra Blood Pressure Only MD Shannan 01/22/2022 Office Visit Temi Ibarra Medication M anagement; MD Shannan Sleep Problem ( Been having problems with sleep) 01/22/2022 Travel 12/27/2021 Refill Temi Ibarra MD (Gabapentin) 12/19/2021 Refill Temi Ibarra Refjen Calderon MD (Triamcinolone) 11/29/2021 Nurse/Clinic Staff Immunizat ion/Injection [...] (High-dose) (Flu 03/01/2016 Clinic Only) COVID-19 vaccine ([facility] 11/29/2021 30mcg/0.3mL) 12YO+ ALEXANDRO-SUCROSE PF, MDV COVID-19 vaccine ([facility] 03/01/2021, 07/02/2020, 30mcg/0.3mL) PF, MDV Influenza A [...] Relation Name Status Comments Father (Age 56) OR Mother (Age 86) liver cancer Other Sister [...] 36.9 ??C (98.5 ??F) 05/16/2021 8:00 AM [facility] Respiratory Rate 20 05/29/2021 12:00 PM [facility] Oxygen Saturation 99% 02/12/2022 2:33 PM CDT Inhaled Oxygen Concentration - - Weight 52.8 kg (116 lb 6.4 oz) 02/12/2022 2:33 PM CDT Height 157.5 cm (5' 2) 05/29/2021 12:00 PM [facility] Body Mass Index 21.29 05/29/2021 12:00 PM [facility] Plan of Treatment Upcoming Encounters Date Type Specialty Care Team Description 03/05/2022 Office Visit Temi Ibarra MD [address] [place], [place] [address] (Wo rk) 04/09/2022 Orders Only [facility] 04/09/2022 Orders Only [facility] [place] [employer] 04/17/2022 Office Visit Reese Newsome MD [address] [place], [place] [address] (Wo rk) Health Maintenance Due [...] Name Priority Date/Time Associated Diagnosis Comme nts SCAN-RADIOLOGY REPORT 02/19/2022 12:00 Re sults for this AM CDT procedure are i n the results section. CBC WITH AUTO Routine 02/12/2022 3:05 [...] results section. from Last 3 Months Results SCAN-RADIOLOGY REPORT (02/19/2022 12:00 AM CDT) Narrative This result has an attachment that is no t available. Scanner OTHER (ABNORMAL) CBC WITH AUTO DIFFERENTIAL (02/12/2022 3:05 PM CDT) [facility] gist Method Time Signature WHITE BLOOD 7.4 4.5 - 02/12/2022 [facility] COUNT 11.0 3:09 PM T [facility]/ CLINIC mm RED BLOOD COUNT 4.85 4.00 - 02/12/2022 [facility] 5.20 3:09 PM T [facility]/ mm CLINIC HEMOGLOBIN 14.4 12.0 - 02/12/2022 [facility] 16.0 g/dL 3:09 PM [facility] HEMATOCRIT 43.7 33.0 - 02/12/2022 [facility] 51.0 % 3:09 PM T [facility] MCV 90 80 - 100 02/12/2022 [facility] fL 3:09 PM T [facility] MCH 29.7 26.0 - 02/12/2022 [facility] 34.0 pg 3:09 PM T [facility] MCHC 33.0 32.0 - 02/12/2022 [facility] 36.0 g/dL 3:09 PM [facility] RDW 15.4 11.5 - 02/12/2022 [facility] 15.5 % 3:09 PM T [facility] PLATELET COUNT 210 140 - 440 [facility] CL[facility] MPV 11.4 (H) 6.5 - 02/12/2022 [facility] 11.0 fL 3:09 PM CDT [facility] % NEUT 67.0 % 02/12/2022 [facility] 3:09 PM CDT [facility] % LYMPH 20.2 % 02/12/2022 [facility] 3:09 PM CDT [facility] % MONO 9.4 % 02/12/2022 [facility] 3:09 PM CDT [facility] % EOS 3.3 % 02/12/2022 [facility] 3:09 PM CDT [facility] % BASO 0.1 % 02/12/2022 [facility] 3:09 PM CDT [facility] ABSOLUTE 4.9 1.7 - 7.0 02/12/2022 [facility] NEUTROPHILS thou/cu 3:09 PM CDT [facility] CLINIC ABSOLUTE 1.5 0.9 - 2.9 02/12/2022 [facility] LYMPHOCYTES thou/cu 3:09 PM CDT [facility] CLINIC ABSOLUTE 0.7 <0.9 02/12/2022 [facility] MONOCYTES thou/cu 3:09 PM CDT [facility] CLINIC ABSOLUTE 0.2 <0.5 02/12/2022 [facility] EOSINOPHILS thou/cu 3:09 PM CDT [facility] CLINIC ABSOLUTE 0.0 <0.3 02/12/2022 [facility] BASOPHILS thou/cu 3:09 PM CDT [facility] CLINIC Specimen Anatomical Collection Method / Collection Time Recei good Time (Source) Location / Volume Laterality Blood BLOOD SPECIMEN / Venipuncture / 02/12/2022 3:05 2021 3:06 Unknown Unknown PM CDT PM CDT Temi Ibarra MD HEMATOLOGY Performing Organization Address City/State/ZIP Code Phon e Number [facility] [address] [place], [place] [id number] LIPID PANEL W REFLEX MEASURED LDL (02/12/2022 3:05 PM CDT) [facility] Method Time Signature CHOLESTEROL,TOTAL 126 100 [...] Organization Address City/State/ZIP Code Phon e Number [facility] [address] [place] [address] LABORATORY-CENTRAL 2000 LABORATORY HEPATIC FUNCTION PANEL (02/12/2022 [...] Organization Address City/State/ZIP Code Phon e Number [facility] [address] [place], [place] [address] [address] LABORATORY-CENTRAL 2000 LABORATORY (ABNORMAL) BASIC METABOLIC PANEL [...] LABORATORY CALCIUM 9.4 8.5 - 10.5 02/14/2022 [facility] mg/dL 3:31 PM CDT [facility] TRAL LABORATORY BUN 20 8 - 25 02/14/2022 [facility] mg/dL 3:31 PM CDT [facility] TRAL LABORATORY CREATININE 0.80 0.57 - 02/14/2022 [facility] 1.11 mg/dL 3:31 PM CDT [facility] TRAL LABORATORY BUN/CREAT RATIO 25 (H) 10 - 20 02/14/2022 [facility] 3:31 PM CDT [facility] TRAL LABORATORY eGFR 72 (L) >90 02/14/2022 [facility] mL/min/1.7 3:31 PM CDT [facility] 3m2 TRAL [...] Organization Address City/State/ZIP Code Phon e Number [facility] [address] [place] [address] LABORATORY-CENTRAL 2000 LABORATORY from Last 3 Months Insurance Payer Benefit Plan / Subscriber ID Effective Dates Phone Addre ss Type Group [facility] MR [id number] 2021-Present [address] [address] [place] [address] Advance Directives Latest Code Status on File Code Status Date Activated Date Inactivated Comments DNR 05/13/2021 4:25 PM 05/16/2021 3:23 PM Code Status Discussion: Reviewed Preferences Full Code 05/12/2021 2:01 PM 05/13/2021 4:25 PM Code Status Discussion: Reviewed Preferences Care Teams [employer] Relationship Specialty Start Date End Date Temi Ibarra MD PCP - General Family Practice 06/25/17 [address] [place] [address]
[2022-02-26 19:29] LABS: Basophils Absolute Auto 0.02 K/uL (0.00-0.30); Basophils Percent Auto 0.3 % (0.0-3.0); Eosinophils Percent Auto 3.2 % (0.0-7.0); Hematocrit 42.9 % (33.0-51.0); Hemoglobin* 13.8 gm/dL (12.0-16.0); Immature Granulocytes Abs Auto 0.01 K/uL (0.00-0.30); Lymphocytes Percent Auto 20.7 % (20-44); Mean Corpuscular HGB Conc 32 gm/dL (32-36); Mean Corpuscular Hemoglobin 29 pg (26-34); Mean Corpuscular Volume 91 fL (80-100); Monocytes Percent Auto 8.4 % (0.0-11.0); Neutrophils Absolute Auto 4.23 K/uL (1.7-7.0); Neutrophils Percent Auto 67.2 % (42.0-72.0); Platelet Count* 186 K/uL (140-440); RDW Coefficient of Variation % 14.7 % (11.5-15.5); Red Blood Count 4.71 m/uL (4.00-5.20); White Blood Count* 6.29 K/uL (4.50-11.00)
[2022-02-26 19:43] LABS: Albumin* 4.1 g/dL (3.3-5.0); Chloride* 105 mmol/L (96-114); Potassium* 3.9 mmol/L (3.6-5.1); Sodium* 139 mmol/L (135-149)
[2022-02-26 19:45] LABS: Aspartate Amino Transferase* 28 U/L (12-35); Bilirubin Total* 0.5 mg/dL (0.1-1.5); Carbon Dioxide* 28 mmol/L (20-32); Creatinine* 0.7 mg/dL (0.5-1.5); Est. Creatinine Clearance* 31.94; Estimated Glomerular Filt Rate 84 ml/min
[2022-02-26 19:46] LABS: Alanine Aminotransferase* 18 U/L (4-35); Alkaline Phosphatase* 102 U/L (40-150); Appearance Urine Clear (Clear); Bilirubin Urine Negative (Negative); Blood Urea Nitrogen* 20 mg/dL (7-30); Blood Urine Trace-intact (Negative); Calcium* 9.5 mg/dL (8.4-10.6); Color Urine Yellow (Yellow); Glucose Urine Negative (Negative); Glucose* 98 mg/dL (60-115); Ketones Urine Negative (Negative); Leukocyte Esterase Urine Trace (Negative); Nitrite Urine Positive (Negative); Protein Urine Negative (Negative); Total Protein* 6.7 g/dL (6.0-8.3); Urobilinogen Urine 0.2 (0.2-1.0)
[2022-02-26 19:55] LABS: Bacteria Urine Moderate; RBC Urine 0-2 (0-2); WBC Urine 0-2 (0-5)
[2022-02-26 20:12] LABS: Slide Review Reflex No
[2022-02-26 20:16] LABS: Troponin I* < 0.01 ng/mL (0.01-0.04)
[2022-02-26 21:24] LABS: Troponin, Point-of-Care* 0.01 ng/ml (0.01-0.04)
== END 2022-02-26 22:15 | disposition home or self-care (01) ==
PROVIDERS: Emergency Provider Family Medicine; PCP Family Medicine
DX: I10 Essential (primary) hypertension (principal); R51.9 Headache, unspecified; R20.2 Paresthesia of skin; M54.50 Low back pain, unspecified
CPT/HCPCS: 36415; 71045; 72131; 80053; 81003; 81015; 84484; 85025; 87086; 87186; 93005; 94761; 99284; 99285

== ENCOUNTER 2022-06-05 19:21 | Emergency (ER) | payer MEDICARE, SELFPAY ==
[2022-06-05 19:38] VITALS: BP 115/72; PULSE 60; RESP 16; TEMP 36.9; O2SAT 99; BMI 21.0
[2022-06-05 19:50] VITALS: O2SAT 95
--- NOTE | 2022-06-05 19:50 | CRLHL7_ITS ---
For Patients: As a result of the Century Cures Act, medical imaging exams and procedure reports are released immediately into your electronic medical record. You may view this report before your referring provider. If you have questions, please contact your health care provider. INDICATION: Fall, cough. TECHNIQUE: Chest 1 view. COMPARISON: 05/12/2021. FINDINGS: Cardiovascular and mediastinum: Atherosclerotic thoracic aorta. Normal heart size for portable technique. Lungs and pleural spaces: There is a relative paucity of pulmonary vascular markings in the left lung base. No focal consolidation, pleural effusion, or pneumothorax. Bones and soft tissues: Mildly displaced, comminuted transverse fracture of the left humeral neck. IMPRESSION: Relative paucity of pulmonary vasculature markings in the left lung base. This is nonspecific, but can be seen in setting of pulmonary embolism ([place] sign). Recommend CT PE study if there is clinical concern. Mildly displaced, comminuted transverse fracture of the left humeral neck. Dictated by Heber Alexander MD @ 06/05/2022 9:06:34 PM (Electronically Signed)
--- NOTE | 2022-06-05 19:50 | CRLHL7_ITS ---
For Patients: As a result of the Cures Act, medical imaging exams and procedure reports are released immediately into your electronic medical record. You may view this report before your referring provider. If you have questions, please contact your health care provider. Indication: Fall, cough. Technique: Left humerus 2 views. Comparison: None. Findings: Bones: Comminuted, mildly displaced transverse fracture of the humeral neck with likely involvement of the greater trochanter. No glenohumeral joint dislocation. Joint spaces: Mild degenerative changes of the acromioclavicular and glenohumeral joints. Soft tissues: Unremarkable. Impression: Comminuted, mildly displaced transverse fracture of the humeral neck. Dictated by Heber Alexander MD @ 06/05/2022 9:07:37 PM (Electronically Signed)
[2022-06-05 19:51] VITALS: BP 118/53; PULSE 84; RESP 18; O2SAT 96
--- NOTE | 2022-06-05 19:51 | CRLHL7_ITS ---
For Patients: As a result of the Century Cures Act, medical imaging exams and procedure reports are released immediately into your electronic medical record. You may view this report before your referring provider. If you have questions, please contact your health care provider. INDICATION: Fall TECHNIQUE: CT cervical spine without contrast. COMPARISON: None FINDINGS: Vertebral alignment: Mild dextroscoliosis. Vertebrae: There are no fractures or suspicious bony lesions. Discs and facet joints: There are [id number] multilevel degenerative disc and facet changes. Extraspinal findings: Paraspinous soft tissues are unremarkable. Small blebs at the right lung apex. IMPRESSION: 1. No sign of acute injury. 2. Multilevel degenerative spondylosis. Please note that all CT scans at this facility use dose modulation, iterative reconstruction, and/or weight-based dosing when appropriate to reduce radiation dose to as low as reasonably achievable. Dictated by Diane Marinelli MD @ 06/05/2022 8:45:49 PM (Electronically Signed)
--- NOTE | 2022-06-05 19:51 | CRLHL7_ITS ---
For Patients: As a result of the Century Cures Act, medical imaging exams and procedure reports are released immediately into your electronic medical record. You may view this report before your referring provider. If you have questions, please contact your health care provider. INDICATION: Fall TECHNIQUE: Head CT without contrast. COMPARISON: August 28, 2018 FINDINGS: CSF spaces: Within normal limits for age. Brain parenchyma: There are nonspecific low attenuation white matter changes consistent with chronic microvascular disease. No sign of mass, hemorrhage, or midline shift. Skull base and calvarium: The visualized paranasal sinuses and mastoid air cells demonstrate no acute or significant findings. The visualized orbits are grossly unremarkable. No skull fractures. There is intracranial atherosclerosis. IMPRESSION: 1. No acute findings. 2. Nonspecific white matter disease, typical of chronic microvascular disease. Please note that all CT scans at this facility use dose modulation, iterative reconstruction, and/or weight-based dosing when appropriate to reduce radiation dose to as low as reasonably achievable. Dictated by Diane Marinelli MD @ 06/05/2022 8:48:11 PM (Electronically Signed)
--- NOTE | 2022-06-05 19:56 | ED.GENADULT ---
HPI - General Adult General Time Seen by Provider: 19:50 Date Seen: 06/05/22 Chief complaint: Extremity Pain/Injury, Upper Stated complaint: Weak Cold Symptoms Time Seen by Provider: 06/05/22 19:29 Source: patient, family and RN notes reviewed Mode of arrival: ambulatory Limitations: no limitations History of Present Illness HPI narrative: Patient is an 87-year-old female coming into the ER with concern of left arm pain, weakness. Rsoibel was noted to be talking nonsensically last night. Her came in and found her on the ground next to the night stand. He believe she got up to go to the bathroom. She was talking about things that were not making sense. She has continued to complain of left arm pain today. Figures that she got up to go to the bathroom, was weekend maybe fell a cross the night stand. She denies any head pain or headache, no visual changes but does have a significant bruise in her anterior forehead. She is notably on Plavix. She denies any numbness tingling in her left arm but the left upper arm hurts. She states she has been coughing for 3 weeks. She states she has just been taking Sudafed. Her states she has actually been using Robitussin DM and Mucinex. She does not believe they have done any chest x-rays. At this time she is denying any difficulty breathing, no shortness of breath, no chest pain. No abdominal pain. She denies any neck pain. No pain in her lower extremities. Related Data Home Medications Medication Instructions Recorded Confirmed alendronate 70 mg tablet 70 mg PO QWEEK 02/19/22 06/05/22 aspirin 81 mg capsule 81 mg PO DAILY 02/19/22 06/05/22 atorvastatin 40 mg tablet 40 mg PO QHS 02/19/22 06/05/22 calcium carbonate 400 mg calcium 400 mg PO DAILY 02/19/22 06/05/22 (1,000 mg) chewable tablet carvedilol 12.5 mg tablet 12.5 mg PO Q12H 02/19/22 06/05/22 clopidogrel 75 mg tablet 75 mg PO DAILY 02/19/22 06/05/22 gabapentin 100 mg capsule 200 mg PO TID 02/19/22 02/19/22 glucosamine [id number]-[id number] 1 tab PO DAILY 02/19/22 06/05/22 500 mg-167 mg-400 mg tablet losartan 100 mg tablet 100 mg PO DAILY 02/19/22 06/05/22 multivitamin 1 tab PO DAILY 02/19/22 06/05/22 Allergies Allergy/AdvReac Type Severity Reaction Status Date / Time Sulfa (Sulfonamide Allergy Mild Nausea Verified 06/05/22 21:52 Antibiotics) Penicillins Allergy Unknown Rash Verified 06/05/22 21:52 Review of Systems Status of ROS: Reports: 10 or more systems reviewed and unremarkable except as noted in History and below [facility] Medical History (Updated 06/05/22 @ 23:40 by Marcia Morrow MD) Acquired claw toe of right foot Acute respiratory failure with hypoxia Diverticulitis of colon (without mention of hemorrhage) Enlarged and hypertrophic nails Essential (primary) hypertension Hyperlipemia Lymphocytic colitis Peripheral vascular disease ST elevation (STEMI) myocardial infarction involving right coronary artery Surgical History (Updated 06/05/22 @ 20:45 by Cole Ohara RN) Status post right hip replacement Social History Smoking Status: Former smoker What tobacco products do you use: cigarettes Smoking quit date/years: <= 15 years ago Do you use any of these nicotine containing products: None Second hand tobacco smoke exposure: No How often do you have a drink containing alcohol: never AUDIT-C Alcohol total score: 0 Non-prescribed substance use: denies use service: No Exam Const: Vital Signs, click to edit/add: Vital Signs - 24 hr 06/05/22 19:38 06/05/22 19:50 Temperature 98.5 F Pulse Rate [Right Pulse Oximeter] 60 Respiratory Rate 16 Blood Pressure [Ri ght Upper Arm] 115/72 Pulse Oximetry 99 95 Oxygen Delivery Me thod Room Air Documenting provider has reviewed patient's vital signs: yes Common normals: no apparent distress General appearance: cooperative, comfortable, well kempt and frail appearing Other: Closes her eyes very easily but is very alert to any voice stimuli. She has a large bruise down her central forehead. It is quite tender when I attempt to palpate in just minimally raised. There is no open wound. No midline tenderness of her neck and she is observed to be rotating her head without any difficulty. HENMT: Common normals: hearing grossly normal bilaterally, external ears normal, external nose normal and nasal mucous membranes and turbinates normal Nose: external nose normal and nasal mucous membranes and turbinates normal External ear: external ears normal Eye: Common normals: PERRL, EOMs intact bilaterally, conjunctivae normal and no scleral icterus Conjunctiva: conjunctiva(e) normal Pupil: PERRL Neck & C-Spine: Common normals: full ROM, no lymphadenopathy, supple, no meningeal signs, no JVD and thyroid normal Thyroid: thyroid normal Chest: Common normals: inspection of chest normal and palpation of chest normal Resp: Common normals: normal respiratory effort, no retractions and no use of accessory muscles Other: Lung sounds are somewhat distant, I hear no crackles or wheezing, she was somewhat poor effort. Cardio: Common normals: no JVD, regular rate, regular rhythm, S1 normal heart sound, S2 normal heart sound, no gallops, no clicks, no murmurs and no rub Rate: regular rate Rhythm: regular rhythm Heart sounds: S1 normal and S2 normal GI: Common normals: Normal to inspection, nondistended, normoactive bowel sounds present, soft to palpation, non-tender, no hepatosplenomegaly and no masses Palpation: soft and no hepatosplenomegaly Extremity: Common normals: normal to inspection and full ROM Other: She has absolutely no lower extremity edema. Mid arm bruising and swelling. Left clavicle and shoulder nontender. Nontender about the elbow. Distal sensation in this arm normal, normal radial pulse. Neuro: Common normals: CN's II-XII intact bilaterally, moves all extremities (With limitations of the left upper arm due to pain.), no focal motor deficits and no sensory deficits noted Meningeal signs: no meningeal signs Psych: Appearance: well kempt Course Course Hospital Course: Patient will have head CT, cervical spine CT, chest x-ray to start and left humerus x-ray. We are getting full complement of labs including blood cultures. I am concerned that the cough represents an underlying infectious etiology. We need to further evaluate injuries from the fall. She certainly seems tired and would no doubt agree that she feels weak. Will do the triple viral swab as well. I for see this patient likely needing admission, will need to check on that status for her. Reevaluation(s) Reevaluation #1: Reviewed radiologist reading of the chest x-ray, question changes of lack of lung markings in the left lower lobe. This could be consistent with x-ray findings of a pulmonary embolus. Will follow the recommendation of doing chest CT PE protocol. Will subsequently be letting patient know that she will be getting a chest CT to further look at the lungs. We certainly do want to know she has a pulmonary embolus as she has no acute humerus fracture. Would want to talk to the hospitalist before initiating anticoagulation in this situation. Patient and her are also informed of her humeral fracture. Will get a sling on her arm. Time: 21:21 Reevaluation #2: Patient was up to the bathroom, did get assistance by staff. Her feels that he can help her at home, feels comfortable with this. We did review with him that she is going to need assistance with activities such as going to the bathroom bathing, caring for herself in general with getting food and drink. He does agree that he will be able to help her. I have provided them a copy of her CT report, have gone over this. She does have underlying emphysema on the CT, likely is the reason for her coughing. She is not actively wheezing, no hypoxia. Her cough is probably coming from COPD/emphysema. I do not want to give her any oral prednisone at this time as it may inhibit bone healing in her arm. They do have an appointment with her doctor at 10:00 a.m. tomorrow morning. I would like them to keep this. They should bring the CT report with and discuss further management of COPD. She will need to follow up with Orthopedics. Time: 23:35 Vital Signs Vital signs: Initial Vital Signs Temperature 98.5 F 06/05/22 19:38 Temperature Source Temporal Artery Scan 06/05/22 19:38 Pulse Rate 60 06/05/22 19:38 Respiratory Rate 16 06/05/22 19:38 Blood Pressure 115/72 06/05/22 19:38 Blood Pressure Mean 86 06/05/22 19:38 Blood Pressure Position Supine 06/05/22 19:38 Pulse Oximetry 99 06/05/22 19:38 Oxygen Delivery Method 06/05/22 19:38 Vital Signs Temperature 98.5 F 06/05/22 19:38 Pulse Rate 60 06/05/22 19:38 Respiratory Rate 16 06/05/22 19:38 Blood Pressure 115/72 06/05/22 19:38 Pulse Oximetry 99 06/05/22 19:38 Oxygen Delivery Method 06/05/22 19:38 Temperature 98.5 F 06/05/22 19:38 Pulse Rate 60 06/05/22 19:38 Respiratory Rate 16 06/05/22 19:38 Blood Pressure 115/72 06/05/22 19:38 Pulse Oximetry 95 06/05/22 19:50 Oxygen Delivery Method 06/05/22 19:38 Medical Decision Making Lab Data Lab results reviewed: Yes I reviewed the patient's lab results Labs: Lab Results 06/05/22 06/05/22 06/05/22 Range/Units 19:52 19:52 19:52 WBC 11.03 H (4.50-11.00) K/uL RBC 4.27 (4.00-5.20) m/uL Hgb 12.6 (12.0-16.0) gm/dL Hct 38.6 (33.0-51.0) % MCV 90 (80-100) fL MCH 30 (26-34) pg MCHC 33 (32-36) gm/dL RDW Coeff of Garrick 14.3 (11.5-15.5) % Plt Count 205 (140-440) K/uL Neut % (Auto) 82.7 H (42.0-72.0) % Lymph % (Auto) 8.5 L (20-44) % Green % (Auto) 8.4 (0.0-11.0) % Eos % (Auto) 0.2 (0.0-7.0) % Baso % (Auto) 0.1 (0.0-3.0) % Neut # (Auto) 9.10 H (1.7-7.0) K/uL Lymph # (Auto) 0.90 (0.90-2.90) K/uL Green # (Auto) 0.90 (0.00-0.90) K/UL Eos # (Auto) 0.00 (0.00-0.50) K/uL Baso # (Auto) 0.00 (0.00-0.30) K/uL ESR 30 H (2-20) mm/hr Sodium 135 (135-149) mmol/L Potassium 3.7 (3.6-5.1) mmol/L Chloride 102 (96-114) mmol/L Carbon Dioxide 27 (20-32) mmol/L BUN 22 (7-30) mg/dL Creatinine 0.8 (0.5-1.5) mg/dL Estimated Creat Clear 31.35 Estimated GFR 71 ml/min Glucose 147 H (60-115) mg/dL Lactate (0.5-1.9) mmol/L Calcium 8.9 (8.4-10.6) mg/dL Total Bilirubin 0.6 (0.1-1.5) mg/dL AST 25 (12-35) U/L ALT 23 (4-35) U/L Alkaline Phosphatase 54 (40-150) U/L C-Reactive Protein 2.5 H (0.5-1.0) mg/dL NT-Pro-B Natriuret Pep 948 pg/mL Total Protein 6.0 (6.0-8.3) g/dL Albumin 3.4 (3.3-5.0) g/dL SARS-CoV-2 (PCR) (Negative) Influenza Type A (PCR) (Negative) Influenza Type B (PCR) (Negative) RSV (PCR) (Negative) POC Troponin I (0.01-0.04) ng/ml 06/05/22 06/05/22 06/05/22 Range/Units 19:52 19:52 19:52 WBC (4.50-11.00) K/uL RBC (4.00-5.20) m/uL Hgb (12.0-16.0) gm/dL Hct (33.0-51.0) % MCV (80-100) fL MCH (26-34) pg MCHC (32-36) gm/dL RDW Coeff of Garrick (11.5-15.5) % Plt Count (140-440) K/uL Neut % (Auto) (42.0-72.0) % Lymph % (Auto) (20-44) % Green % (Auto) (0.0-11.0) % Eos % (Auto) (0.0-7.0) % Baso % (Auto) (0.0-3.0) % Neut # (Auto) (1.7-7.0) K/uL Lymph # (Auto) (0.90-2.90) K/uL Green # (Auto) (0.00-0.90) K/UL Eos # (Auto) (0.00-0.50) K/uL Baso # (Auto) (0.00-0.30) K/uL ESR (2-20) mm/hr Sodium (135-149) mmol/L Potassium (3.6-5.1) mmol/L Chloride (96-114) mmol/L Carbon Dioxide (20-32) mmol/L BUN (7-30) mg/dL Creatinine (0.5-1.5) mg/dL Estimated Creat Clear Estimated GFR ml/min Glucose (60-115) mg/dL Lactate 1.7 (0.5-1.9) mmol/L Calcium (8.4-10.6) mg/dL Total Bilirubin (0.1-1.5) mg/dL AST (12-35) U/L ALT (4-35) U/L Alkaline Phosphatase (40-150) U/L C-Reactive Protein (0.5-1.0) mg/dL NT-Pro-B Natriuret Pep pg/mL Total Protein (6.0-8.3) g/dL Albumin (3.3-5.0) g/dL SARS-CoV-2 (PCR) Negative SARS-CoV-2 (Negative) Influenza Type A (PCR) Negative PCR FLU A (Negative) Influenza Type B (PCR) Negative PCR FLU B (Negative) RSV (PCR) Negative PCR RSV (Negative) POC Troponin I 0.01 (0.01-0.04) ng/ml Imaging Data CT scan - head: Attestation: I have reviewed the pertinent imaging results. Radiologist's impression: Patient: MARIA D PAZ Facility:?[facility] Patient ID:?[id number] Site Patient ID:?[id number]. Site :?[id number] Study:?CT Head W/O-06/05/2022 8:39:15 PM Ordering Physician:?Cristhian Kennedy Final Report: INDICATION: Fall TECHNIQUE: Head CT without contrast. COMPARISON: August 28, 2018 FINDINGS: CSF spaces: Within normal limits for age. Brain parenchyma: There are nonspecific low attenuation white matter changes consistent with chronic microvascular disease. No sign of mass, hemorrhage, or midline shift. Skull base and calvarium: The visualized paranasal sinuses and mastoid air cells demonstrate no acute or significant findings. The visualized orbits are grossly unremarkable. No skull fractures. There is intracranial atherosclerosis. IMPRESSION: 1. No acute findings. 2. Nonspecific white matter disease, typical of chronic microvascular disease. Please note that all CT scans at this facility use dose modulation, iterative reconstruction, and/or weight-based dosing when appropriate to reduce radiation dose to as low as reasonably achievable. Dictated by Diane Marinelli MD @ 06/05/2022 8:48:11 PM (Electronic Signature) CT- Other: Attestation: I have reviewed the pertinent imaging results. Radiologist's impression: Patient: MARIA D PAZ Facility:?[facility] Patient ID:?[id number] Site Patient ID:?[id number]. Site :?1935 Study:?CT Spine Cervical W/O-06/05/2022 8:38:33 PM Ordering Physician:Gab Kennedy Final Report: INDICATION: Fall TECHNIQUE: CT cervical spine without contrast. COMPARISON: None FINDINGS: Vertebral alignment: Mild dextroscoliosis. Vertebrae: There are no fractures or suspicious bony lesions. Discs and facet joints: There are [id number] multilevel degenerative disc and facet changes. Extraspinal findings: Paraspinous soft tissues are unremarkable. Small blebs at the right lung apex. IMPRESSION: 1. No sign of acute injury. 2. Multilevel degenerative spondylosis. Please note that all CT scans at this facility use dose modulation, iterative reconstruction, and/or weight-based dosing when appropriate to reduce radiation dose to as low as reasonably achievable. Dictated by Diane Marinelli MD @ 06/05/2022 8:45:49 PM (Electronic Signature) Chest x-ray: Attestation: I have reviewed the pertinent imaging results. Radiologist's impression: Patient: MARIA D PAZ Facility:?[facility] Patient ID:?[id number] Site Patient ID:?[id number]. Site :?1935 Study:?XRay Chest portable-06/05/2022 8:41:02 PM Ordering Physician:Gab Kennedy Final Report: INDICATION: Fall, cough. TECHNIQUE: Chest 1 view. COMPARISON: 05/12/2021. FINDINGS: Cardiovascular and mediastinum: Atherosclerotic thoracic aorta. Normal heart size for portable technique. Lungs and pleural spaces: There is a relative paucity of pulmonary vascular markings in the left lung base. No focal consolidation, pleural effusion, or pneumothorax. Bones and soft tissues: Mildly displaced, comminuted transverse fracture of the left humeral neck. IMPRESSION: Relative paucity of pulmonary vasculature markings in the left lung base. This is nonspecific, but can be seen in setting of pulmonary embolism ([place] sign). Recommend CT PE study if there is clinical concern. Mildly displaced, comminuted transverse fracture of the left humeral neck. Dictated by Heber Alexander MD @ 06/05/2022 9:06:34 PM (Electronic Signature) X-ray left humerus: Attestation: I have reviewed the pertinent imaging results. My impression: Can see a comminuted humerus fracture below humeral head. Radiologist's impression: Patient: MARIA D PAZ Facility:?[facility] Patient ID:?[id number] Site Patient ID:?[id number]. Site :?1935 Study:?XRay Extremity Left humerus-06/05/2022 8:42:08 PM Ordering Physician:Gab Kennedy Final Report: Indication: Fall, cough. Technique: Left humerus 2 views. Comparison: None. Findings: Bones: Comminuted, mildly displaced transverse fracture of the humeral neck with likely involvement of the greater trochanter. No glenohumeral joint dislocation. Joint spaces: Mild degenerative changes of the acromioclavicular and glenohumeral joints. Soft tissues: Unremarkable. Impression: Comminuted, mildly displaced transverse fracture of the humeral neck. Dictated by Heber Alexander MD @ 06/05/2022 9:07:37 PM (Electronic Signature) CT scan - chest: Attestation: I have reviewed the pertinent imaging results. My impression: I did visualize patient's CT, could see changes consistent with emphysema but most certainly need to await the radiology over read. Radiologist's impression: Patient: MARIA D PAZ Facility:?[facility] Patient ID:?[id number] Site Patient ID:?[id number]. Site :?1935 Study:?CT Chest Angio CHEST PE W/95CC [id number]/31/2023 11:00:59 PM Ordering Physician:Gab Kennedy Final Report: INDICATION: Abnormal chest x-ray. TECHNIQUE: CT chest PE was acquired with 100 cc Omnipaque 350 IV contrast. COMPARISON: Chest radiograph from the same day and chest CT 10/18/2018. FINDINGS: Heart and vasculature: Contrast opacification of the pulmonary arterial tree is adequate. No sign of pulmonary embolism. Normal Pulmonary vasculature within the left lower lobe. No findings to correlate to the radiographic abnormality. 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 Heart size is normal. Thoracic aorta and pulmonary artery are normal in caliber.Heavy atherosclerotic calcification of the coronary arteries and aortic arch. Lungs and pleura: Moderate centrilobular and paraseptal emphysema. No consolidation. No pleural effusions, pleural thickening, or pneumothorax. Lymph nodes/mediastinum: No mediastinal, hilar, or axillary adenopathy. Chest wall: No masses. Upper abdomen: No acute or significant findings. Bones: Acute comminuted, mildly displaced left humeral neck fracture. Chronic mild T8 compression fracture, unchanged. IMPRESSION: No pulmonary embolism. Unremarkable pulmonary vasculature in the left lower lobe. 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 Moderate centrilobular and paraseptal emphysema. Acute mildly displaced, comminuted left humeral neck fracture. Please note that all CT scans at this facility use dose modulation, iterative reconstruction, and/or weight-based dosing when appropriate to reduce radiation dose to as low as reasonably achievable. Dictated by Heber Alexander MD @ 06/05/2022 11:18:06 PM (Electronic Signature) ECG Data Attestation: I personally reviewed and interpreted this ECG as follows: (Sinus bradycardia, 57 beats per minute. Diffuse flipped T-waves inferolaterally. QT corrected 418 milliseconds.) Prior ECG tracings: not available for review Critical Care Time Critical Care Time Critical Care Time: No Discharge Plan Discharge Clinical Impression: Fall, Closed left humeral fracture, Emphysema/COPD Condition: Stable Instructions: Arm Fracture in Adults (ED), How to Use a Sling (ED), Fall Prevention for Older Adults (ED), Emphysema (ED) Additional Instructions: Use sling for comfort. Recommend icing the upper arm just below the shoulder to help minimize pain and swelling. Tylenol 1000 mg 3 times a day scheduled for pain. Keep clinic appointment with your primary care provider tomorrow, discussed CT findings of emphysema and your cough for the last 3 weeks. The cough is likely coming from emphysema and you may benefit from inhalers/nebulization. For your humerus fracture of your left arm, need to call the orthopedic office tomorrow and have them schedule you for follow-up. Phone number for the orthopedic office is [phone]. Activity Level: Activity as Tolerated Prescriptions: No Action carvedilol 12.5 mg tablet 12.5 mg PO Q12H clopidogrel 75 mg tablet 75 mg PO DAILY Label Comments: TAKE 1 TABLET BY MOUTH DAILY losartan 100 mg tablet 100 mg PO DAILY atorvastatin 40 mg tablet 40 mg PO QHS gabapentin 100 mg capsule 200 mg PO TID Label Comments: 200am, 300mg afternoon, 300mg qhs alendronate 70 mg tablet 70 mg PO QWEEK aspirin 81 mg capsule 81 mg PO DAILY multivitamin Tablet 1 tab PO DAILY glucosamine AAm-nry-wjqqtdzisf 500-167-400 mg tablet 1 tab PO DAILY Rx Instructions: give with meal/snack calcium carbonate 400 mg calcium (1,000 mg) tablet,chewable 400 mg PO DAILY Follow Up/Referrals: Temi Ibarra MD [Primary Care Provider] - Stand Alone Forms: [employer] Info Instructions
[2022-06-05 20:22] LABS: Lactate* 1.7 mmol/L (0.5-1.9)
[2022-06-05 20:25] LABS: Basophils Percent Auto 0.1 % (0.0-3.0); Eosinophils Percent Auto 0.2 % (0.0-7.0); Hematocrit 38.6 % (33.0-51.0); Hemoglobin* 12.6 gm/dL (12.0-16.0); Immature Granulocytes Pct Auto 0.1 %; Lymphocytes Percent Auto 8.5 % (20-44); Mean Corpuscular HGB Conc 33 gm/dL (32-36); Mean Corpuscular Hemoglobin 30 pg (26-34); Mean Corpuscular Volume 90 fL (80-100); Monocytes Percent Auto 8.4 % (0.0-11.0); Neutrophils Percent Auto 82.7 % (42.0-72.0); Platelet Count* 205 K/uL (140-440); RDW Coefficient of Variation % 14.3 % (11.5-15.5); Red Blood Count 4.27 m/uL (4.00-5.20); White Blood Count* 11.03 K/uL (4.50-11.00)
[2022-06-05 20:27] LABS: Slide Review Reflex No
[2022-06-05 20:32] LABS: Troponin, Point-of-Care* 0.01 ng/ml (0.01-0.04)
[2022-06-05 20:43] LABS: Albumin* 3.4 g/dL (3.3-5.0); Chloride* 102 mmol/L (96-114); Sodium* 135 mmol/L (135-149)
[2022-06-05 20:44] LABS: Potassium* 3.7 mmol/L (3.6-5.1)
[2022-06-05 20:46] LABS: Alkaline Phosphatase* 54 U/L (40-150); Aspartate Amino Transferase* 25 U/L (12-35); Bilirubin Total* 0.6 mg/dL (0.1-1.5); Carbon Dioxide* 27 mmol/L (20-32); Creatinine* 0.8 mg/dL (0.5-1.5); Est. Creatinine Clearance* 31.35; Estimated Glomerular Filt Rate 71 ml/min
[2022-06-05 20:47] LABS: Alanine Aminotransferase* 23 U/L (4-35); Blood Urea Nitrogen* 22 mg/dL (7-30); Calcium* 8.9 mg/dL (8.4-10.6); Glucose* 147 mg/dL (60-115)
[2022-06-05 20:49] LABS: C Reactive Protein* 2.5 mg/dL (0.5-1.0)
[2022-06-05 20:58] LABS: NT Pro B Type NatriureticPept* 948 pg/mL
--- NOTE | 2022-06-05 21:22 | CRLHL7_ITS ---
For Patients: As a result of the Century Cures Act, medical imaging exams and procedure reports are released immediately into your electronic medical record. You may view this report before your referring provider. If you have questions, please contact your health care provider. INDICATION: Abnormal chest x-ray. TECHNIQUE: CT chest PE was acquired with 100 cc Omnipaque 350 IV contrast. COMPARISON: Chest radiograph from the same day and chest CT 10/18/2018. FINDINGS: Heart and vasculature: Contrast opacification of the pulmonary arterial tree is adequate. No sign of pulmonary embolism. Normal Pulmonary vasculature within the left lower lobe. No findings to correlate to the radiographic abnormality. 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 Heart size is normal. Thoracic aorta and pulmonary artery are normal in caliber.Heavy atherosclerotic calcification of the coronary arteries and aortic arch. Lungs and pleura: Moderate centrilobular and paraseptal emphysema. No consolidation. No pleural effusions, pleural thickening, or pneumothorax. Lymph nodes/mediastinum: No mediastinal, hilar, or axillary adenopathy. Chest wall: No masses. Upper abdomen: No acute or significant findings. Bones: Acute comminuted, mildly displaced left humeral neck fracture. Chronic mild T8 compression fracture, unchanged. IMPRESSION: No pulmonary embolism. Unremarkable pulmonary vasculature in the left lower lobe. 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 Moderate centrilobular and paraseptal emphysema. Acute mildly displaced, comminuted left humeral neck fracture. Please note that all CT scans at this facility use dose modulation, iterative reconstruction, and/or weight-based dosing when appropriate to reduce radiation dose to as low as reasonably achievable. Dictated by Heber Alexander MD @ 06/05/2022 11:18:06 PM (Electronically Signed)
[2022-06-05 21:41] LABS: PCR FLU A Negative PCR FLU A (Negative); PCR FLU B Negative PCR FLU B (Negative); PCR RSV Negative PCR RSV (Negative)
[2022-06-05 21:45] VITALS: BP 187/78; PULSE 52; RESP 18; O2SAT 96
[2022-06-05 21:46] LABS: SARS PCR* Negative SARS-CoV-2 (Negative)
[2022-06-05 22:04] LABS: Erythrocyte SedimentationRate* 30 mm/hr (2-20)
== END 2022-06-06 00:21 | disposition home or self-care (01) ==
PROVIDERS: Emergency Provider Family Medicine; PCP Family Medicine
DX: S42.292A Other displaced fracture of upper end of left humerus, initial encounter for closed fracture (principal); W18.00XA Striking against unspecified object with subsequent fall, initial encounter; J43.9 Emphysema, unspecified
CPT/HCPCS: 36415; 70450; 71045; 71260; 72125; 73060; 80053; 83605; 83880; 84484; 85025; 85651; 86140; 87040; 87502; 87634; 87635; 93005; 94761; 99284; 99285; Q9967

== ENCOUNTER 2022-10-15 13:15 | Outpatient (RCR) | payer MEDICARE, SELFPAY ==
--- NOTE | 2022-10-15 15:51 | PT.OPDNX ---
PT [facility] DISCHARGE SUMMARY PT [facility] Daily Note Start: 07/25/22 14:15 Freq: Status: Active Protocol: Document 10/15/22 13:11 BIANCA (Rec: 10/15/22 15:50 BIANCA [id number]) E-signed By Sonia Flores, PT PT OP Daily Progress Note Visit Information Note Type Discharge Note Visit Number [id number] Insurance Information Recert Due Date 10/22/22 Insurance Name Medicare B Medical Diagnosis LEFT PROXIMAL HUMERAL FX [id number]. [id number] Treating Diagnosis LEFT SHOULDER PAIN M25.512 LEFT SHOULDER STIFFNESS M25.61 WEAKNESS R53.1 Subjective Subjective I'VE BEEN WORKING MY SHOULDER PRETTY GOOD. MY RIGHT IS BETTER Pain Comments 0-07/13 Preferred Name [facility] Precautions Weight Bearing Status Full Weight Bearing Home Exercise Home Exercise Comments 10/15/22 UPDATED AND REVIEWED Objective Other/Pertinent Objective STDG AROM->SUPINE AROM S'FLEX: 122->165; S'ABD: 118->162; S'ER @0-66->@45-58; S'IR TOP SACRUM->@90-80; Functional Test Performed & Score TU.1; 10/15/22 10.4 SEC TINNETI:; 10/15/22 Patient Instructed in Risks/Benefits Yes Therapeutic Exercise Therapeutic Exercise Minutes (minutes) 35 Therapeutic Exercise: To Restore UBE (2.5FWD/2.5BKWD) Functional Status ALEXANDER X 5 MIN STDG AAROM WALL SLIDES FLEX 10 X 5 SEC TB (GREEN) ROW X 15 TB (GREEN) S'EXT X 15 WALL CIRCLES LEFT/RIGHT X10 EA WALL ALPHABET PRONE ROW 10 3# PRONE EXT X 10 2# PRONE H'ABD 1# PRONE SCAPTION 10 1# SUPINE PROTRACTION X 10 SUPINE AAROM CHEST PRESS X 10 3# SUPINE CHEST PRESS TO OVERHEAD 10 X 5 SEC Manual Therapy Techniques Manual Therapy Minutes (minutes) 10 Manual Therapy Techniques PROM TO SHOULDER Treatment Minutes Timed Code Treatment Minutes 45 Total Treatment Time 45 Billing Units Manual Therapy Units 1 Therapeutic Activity Units 2 Plan of Care Physical Therapy Goals ST. PATIENT WILL IMPROVE LEFT SHOULDER FLEX FROM 62 TO 100 FOR INDEPENDENT ADL'S IN 4-6 WEEKS: GOAL MET 08/28/22 2. PATIENT WILL IMPROVE HER FALL RISK EVIDENCED BY A SCORE OF <14 SEC FROM 18.1 SEC IN 4-6 WEEKS. GOAL MET 3. PATIENT WILL IMPROVE HER STRENGTH FROM 2/5 WITH S'FLEX TO 3/5 IN 4-6 WEEKS; GOAL MET LT. PATIENT WILL DEMONSTRATE FULL AROM NEEDED FOR APPLICATION PACKAGING SPECIALIST IS 10-12 WEEKS; GOAL ET Discharge Note Discharge Summary PATIENT IS AN [address] ALEENA GARCIA REFERRED TO PHYSICAL THERAPY S/P LEFT PROXIMAL HUMERAL FX (06/05/22) TO EVALUATE AND TREAT. PMHX INCLUDES BUT NOT LIMITED TO R ACQUIRED CLAWFOOT, ARF W/ HYPOXIA, DIVERTICULITIS OF COLON, HTN, HLD, OSTEOPOROSIS , PVD, NSTEMI (05/2021), L CTS 11/25/19, R CTS 01/25/20, [employer] [place] WITH AMS. SHE HAS PARTICIPATED IN A COMPREHENSIVE AND INDIVIDUALIZED PROGRAM TO ADDRESS ROM, RTC/SCAP STRENGTH AND STABILIZATION OF HER RIGHT SHOULDER. SHE HAS IMPROVED TO 158 DEGREES FLEX, 138 DEGREES ABD, S'ER @0 ABD 78DEGREES, S'IR L4; SHE HAS RETURNED TO HER [place]ARD[place], INDEPENDENT WITH ADL'S AND IADL'S WITH VERBALIZATION OF GOOD UNDERSTANDING HOW TO SELF PROGRESS. SHE REQUESTS TO CONTINUE ON HER OWN THEY WILL BE TRAVELING ON AND OFF FOR THE NEXT SEVERAL MONTHS AND FEELS SHE CAN CONTINUE W/O PROBLEMS. SHE HAS MET HER GOALS AND DISCHARGED FROM PHYSICAL THERAPY. Date of First Visit for Therapy 07/25/22 Date of Last Visit for Therapy 10/15/22 Initial Primary Functional Limitations REACHING ADL'S Interventions Provided During Treatment Joint Mobilization,Manual Therapy,Neuromuscular Re-Ed, Therapeutic Exercise Recommendations/Reason for Discharge Met All Therapy Goals Discharge Instructions CONTINUE WITH YOUR HEP
== END 2022-10-18 10:22 | disposition home or self-care (01) ==
PROVIDERS: PCP Family Medicine; Visit Provider Orthopaedic Surgery Sports Medicine
DX: S42.352A Displaced comminuted fracture of shaft of humerus, left arm, initial encounter for closed fracture (principal); Z51.89 Encounter for other specified aftercare
CPT/HCPCS: 97140; 97161; 97530

== ENCOUNTER 2022-11-08 11:32 | Emergency (ER) | payer MEDICARE, SELFPAY ==
[2022-11-08] VITALS (16 sets, daily range): BP systolic 138–171; BP diastolic 68–87; PULSE 48–66; RESP 16; TEMP 36.2; O2SAT 95–98; BMI 21.9
--- NOTE | 2022-11-08 11:56 | CRLHL7_ITS ---
For Patients: As a result of the Cures Act, medical imaging exams and procedure reports are released immediately into your electronic medical record. You may view this report before your referring provider. If you have questions, please contact your health care provider. INDICATION: L CP, WHEEZING/RALES TECHNIQUE: Chest 2 views COMPARISON: 06/05/2022 FINDINGS: The cardiac silhouette is enlarged. Vascular calcifications are noted. Chronic prominence of the interstitial markings again noted. Old left proximal humeral fracture deformity. No dense infiltrate. No pleural effusion. IMPRESSION: No evidence of acute heart failure or infiltrate. Dictated by Piyush Doll MD @ 11/08/2022 12:30:20 PM (Electronically Signed)
--- NOTE | 2022-11-08 12:19 | ED.GENADULT ---
HPI - General Adult General Date Seen: 11/08/22 Chief complaint: Chest Pain Stated complaint: Chest discomfort Time Seen by Provider: 11/08/22 11:35 Source: patient Mode of arrival: ambulatory Limitations: no limitations History of Present Illness HPI narrative: Patient is an 87-year-old woman with a history of coronary artery disease status post by her report [place] and stenting a year ago. She says that she never had any chest pain, she had vomiting and weakness, was brought in and then transferred up to [place]. Since stenting, she says she has been doing well but then the past week or so she has developed some pain in the left side of her chest she says ?behind her left boob. It has been episodic, not particularly associated with exertion or any other activities. It lasts a minute or so and then resolve, she has had it multiple times a day for the past week and today it has been very frequent. It is not pleuritic, she denies associated fevers, or shortness of breath. She does note that she has had a cough but nonproductive. She denies any unusual leg pain or swelling. She has not had any vomiting or diarrhea. He has not taken anything for pain because she says she takes enough medications as it is. Between episodes of pain, she is pain-free. Related Data Home Medications Medication Instructions Recorded Confirmed alendronate 70 mg tablet 70 mg PO QWEEK 02/19/22 11/08/22 aspirin 81 mg capsule 81 mg PO DAILY 02/19/22 11/08/22 atorvastatin 40 mg tablet 40 mg PO QHS 02/19/22 11/08/22 calcium carbonate 400 mg calcium 400 mg PO DAILY 02/19/22 11/08/22 (1,000 mg) chewable tablet carvedilol 12.5 mg tablet 12.5 mg PO Q12H 02/19/22 11/08/22 gabapentin 100 mg capsule 200 mg PO TID 02/19/22 11/08/22 glucosamine [id number] 1 tab PO DAILY 02/19/22 11/08/22 500 mg-167 mg-400 mg tablet losartan 100 mg tablet 100 mg PO DAILY 02/19/22 11/08/22 multivitamin 1 tab PO DAILY 02/19/22 11/08/22 albuterol sulfate 1.25 mg/3 mL 1.25 mg inhalation TID 11/08/22 11/08/22 solution for nebulization albuterol sulfate 90 mcg/actuation inhalation PRN 11/08/22 aerosol inhaler Previous Rx's Medication Instructions Recorded albuterol sulfate 90 mcg/actuation 2 puff inhalation 6XD PRN 11/08/22 aerosol inhaler shortness of breath or wheezing #6.7 grams prednisone 20 mg tablet 20 mg PO BID #10 tabs 11/08/22 Allergies Allergy/AdvReac Type Severity Reaction Status Date / Time Sulfa (Sulfonamide Allergy Mild Nausea Verified 08/21/22 09:55 Antibiotics) Penicillins Allergy Unknown Rash Verified 08/21/22 09:55 Review of Systems Status of ROS: Reports: 10 or more systems reviewed and unremarkable except as noted in History and below [facility] Medical History Hyperlipemia ?E78.5 - Hyperlipidemia, unspecified (ICD-10) Essential (primary) hypertension ?I10 - Essential (primary) hypertension (ICD-10) Diverticulitis of colon (without mention of hemorrhage) ?K57.32 - Diverticulitis of large intestine without perforation or abscess without bleeding (ICD-10) Lymphocytic colitis ?K52.832 - Lymphocytic colitis (ICD-10) Acquired claw toe of right foot ?M20.5X1 - Other deformities of toe(s) (acquired), right foot (ICD-10) Enlarged and hypertrophic nails ?Q84.5 - Enlarged and hypertrophic nails (ICD-10) Peripheral vascular disease ?I73.9 - Peripheral vascular disease, unspecified (ICD-10) Acute respiratory failure with hypoxia ?J96.01 - Acute respiratory failure with hypoxia (ICD-10) ST elevation (STEMI) myocardial infarction involving right coronary artery ?I21.11 - ST elevation (STEMI) myocardial infarction involving right coronary artery (ICD-10) Surgical History History of carpal tunnel surgery of left wrist (11/25/19) ?Z98.890 - Other specified postprocedural states (ICD-10) History of carpal tunnel surgery of right wrist (01/25/20) ?Z98.890 - Other specified postprocedural states (ICD-10) Status post right hip replacement ?Z96.641 - Presence of right artificial hip joint (ICD-10) Social History Smoking Status: Former smoker What tobacco products do you use: cigarettes Smoking quit date/years: <= 15 years ago Do you use any of these nicotine containing products: None Second hand tobacco smoke exposure: No How often do you have a drink containing alcohol: never AUDIT-C Alcohol total score: 0 Non-prescribed substance use: denies use service: No Exam Narrative: Exam Narrative: Vital signs as noted above. In general, an alert, well-appearing patient. She looks comfortable, breathing easily. Head: Normocephalic, atraumatic. Eyes: Pupils are equal reactive. Extraocular movements are full. Conjunctivae are normal. ENT: Mucous membranes are moist. Neck: Supple without lymphadenopathy. Heart: Regular rate and rhythm. No murmur or rub. Lungs: She has scattered wheezes, left greater than right, some coarse rales. No increased work of breathing. Chest wall is nontender. Abdomen: Soft and nontender. No organomegaly. Extremities: Well perfused. No edema. No calf tenderness. Pulses intact. Neurologic: Patient is alert and oriented to person and place. Speech is fluent. Face is symmetric. Moves all extremities equally. Affect: Normal. Skin: Warm and dry. Well perfused. Const: Vital Signs, click to edit/add: Vital Signs - 24 hr 11/08/22 11:41 Temperature 97.1 F L Pulse Rate [Pulse Oximeter] 55 L Respiratory Rate 16 Blood Pressure [Ri ght Upper Arm] 171/74 H Pulse Oximetry 96 Oxygen Delivery Me thod Room Air Documenting provider has reviewed patient's vital signs: yes Course Course Hospital Course: EKG on arrival here shows sinus bradycardia with a ventricular rate of 53. I do not see any evidence of acute ST segment changes. There is some artifact. Her troponin is negative x2. Overall my suspicion for this being cardiac pain is relatively low. It sounds like she is extremely active, she and her have been working on moving rock outside, and that does not exacerbate this pain which has been coming and going for a week now. I did give her DuoNeb here. Her D-dimer was elevated at over 3, so she had a CT scan of the chest. By my review this did not show evidence of pulmonary embolism, infiltrate, pulmonary edema, pleural effusion or other acute findings. Final radiology read is high the as follows:IMPRESSION: No sign of pulmonary embolism. Nothing seen to explain the patient`s chest pain. 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 Moderate cholelithiasis with no sign of acute cholecystitis. I other labs show normal white blood cell count and hemoglobin, unremarkable metabolic panel, unremarkable LFTs and a CRP minimally elevated at 1.9. BNP is 504. COVID was negative. Overall, she looks well, she has no specific complaints at this time. I think it is reasonable to treat her for bronchitis, she does tell me that she was told the past that she might have some chronic bronchitis. She does have a history of prior smoking. I recommended treatment with inhaler and prednisone at home. She can use Tylenol if needed for pain. She has an appointment with her primary doctor in 3 days, and I have encouraged her to discuss this further with her primary doctor. Certainly with her cardiac history a stress test could be considered. At any time she is acutely worse, has severe uncontrolled pain, shortness of breath, vomiting, fever or other new symptoms, return to the emergency department. Vital Signs Vital signs: Initial Vital Signs Temperature 97.1 F L 11/08/22 11:41 Temperature Source Temporal Artery Scan 11/08/22 11:41 Pulse Rate 55 L 11/08/22 11:41 Respiratory Rate 16 11/08/22 11:41 Blood Pressure 171/74 H 11/08/22 11:41 Blood Pressure Mean 106 H 11/08/22 11:41 Blood Pressure Position Semi-Fowlers 11/08/22 11:41 Pulse Oximetry 96 11/08/22 11:41 Oxygen Delivery Method Room Air 11/08/22 11:41 Vital Signs Temperature 97.1 F L 11/08/22 11:41 Pulse Rate 55 L 11/08/22 11:41 Respiratory Rate 16 11/08/22 11:41 Blood Pressure 171/74 H 11/08/22 11:41 Pulse Oximetry 96 11/08/22 11:41 Oxygen Delivery Method Room Air 11/08/22 11:41 Temperature 97.1 F L 11/08/22 11:41 Pulse Rate 55 L 11/08/22 11:41 Respiratory Rate 16 11/08/22 11:41 Blood Pressure 171/74 H 11/08/22 11:41 Pulse Oximetry 96 11/08/22 11:41 Oxygen Delivery Method Room Air 11/08/22 11:41 Medical Decision Making Lab Data Labs: Lab Results 11/08/22 11/08/22 11/08/22 Range/Units 11:57 12:30 12:35 WBC 8.36 (4.50-11.00) K/uL RBC 4.19 (4.00-5.20) m/uL Hgb 12.2 (12.0-16.0) gm/dL Hct 37.8 (33.0-51.0) % MCV 90 (80-100) fL MCH 29 (26-34) pg MCHC 32 (32-36) gm/dL RDW Coeff of Garrick 14.7 (11.5-15.5) % Plt Count 226 (140-440) K/uL Neut % (Auto) 71.3 (42.0-72.0) % Lymph % (Auto) 18.4 L (20-44) % [place] % (Auto) 8.3 (0.0-11.0) % Eos % (Auto) 1.7 (0.0-7.0) % Baso % (Auto) 0.2 (0.0-3.0) % Neut # (Auto) 5.96 (1.7-7.0) K/uL Lymph # (Auto) 1.50 (0.90-2.90) K/uL [place] # (Auto) 0.70 (0.00-0.90) K/UL Eos # (Auto) 0.14 (0.00-0.50) K/uL Baso # (Auto) 0.02 (0.00-0.30) K/uL D-Dimer Quant (PE/DVT) 3.38 H (0.00-0.50) ug/ml Sodium 138 (135-149) mmol/L Potassium 4.1 (3.6-5.1) mmol/L Chloride 102 (96-114) mmol/L Carbon Dioxide 31 (20-32) mmol/L BUN 18 (7-30) mg/dL Creatinine 0.7 (0.5-1.5) mg/dL Estimated Creat Clear 31.35 Estimated GFR 84 ml/min Glucose 92 (60-115) mg/dL Calcium 9.7 (8.4-10.6) mg/dL Total Bilirubin 0.6 (0.1-1.5) mg/dL Direct Bilirubin 0.0 (0.0-0.5) mg/dL AST 26 (12-35) U/L ALT 20 (4-35) U/L Alkaline Phosphatase 64 (40-150) U/L C-Reactive Protein 1.9 H (0.5-1.0) mg/dL NT-Pro-B Natriuret Pep 504 pg/mL Total Protein 6.6 (6.0-8.3) g/dL Albumin 3.7 (3.3-5.0) g/dL SARS-CoV-2 (PCR) Negative SARS-CoV-2 (Negative) Influenza Type A (PCR) Negative PCR FLU A (Negative) Influenza Type B (PCR) Negative PCR FLU B (Negative) RSV (PCR) Negative PCR RSV (Negative) POC Troponin I 0.00 L (0.01-0.04) ng/ml 11/08/22 Range/Units 14:46 WBC (4.50-11.00) K/uL RBC (4.00-5.20) m/uL Hgb (12.0-16.0) gm/dL Hct (33.0-51.0) % MCV (80-100) fL MCH (26-34) pg MCHC (32-36) gm/dL RDW Coeff of Garrick (11.5-15.5) % Plt Count (140-440) K/uL Neut % (Auto) (42.0-72.0) % Lymph % (Auto) (20-44) % [place] % (Auto) (0.0-11.0) % Eos % (Auto) (0.0-7.0) % Baso % (Auto) (0.0-3.0) % Neut # (Auto) (1.7-7.0) K/uL Lymph # (Auto) (0.90-2.90) K/uL [place] # (Auto) (0.00-0.90) K/UL Eos # (Auto) (0.00-0.50) K/uL Baso # (Auto) (0.00-0.30) K/uL D-Dimer Quant (PE/DVT) (0.00-0.50) ug/ml Sodium (135-149) mmol/L Potassium (3.6-5.1) mmol/L Chloride (96-114) mmol/L Carbon Dioxide (20-32) mmol/L BUN (7-30) mg/dL Creatinine (0.5-1.5) mg/dL Estimated Creat Clear Estimated GFR ml/min Glucose (60-115) mg/dL Calcium (8.4-10.6) mg/dL Total Bilirubin (0.1-1.5) mg/dL Direct Bilirubin (0.0-0.5) mg/dL AST (12-35) U/L ALT (4-35) U/L Alkaline Phosphatase (40-150) U/L C-Reactive Protein (0.5-1.0) mg/dL NT-Pro-B Natriuret Pep pg/mL Total Protein (6.0-8.3) g/dL Albumin (3.3-5.0) g/dL SARS-CoV-2 (PCR) (Negative) Influenza Type A (PCR) (Negative) Influenza Type B (PCR) (Negative) RSV (PCR) (Negative) POC Troponin I 0.01 (0.01-0.04) ng/ml Discharge Plan Discharge Clinical Impression: Bronchitis, Chest pain Patient Disposition: Home, Self-Care Condition: Stable Instructions: Chest Pain (DC), Acute Bronchitis (ED) Additional Instructions: Medications as prescribed. Follow-up with your doctor on Saturday as planned. If at any time you have more severe pain, new symptoms such as fever, shortness of breath, vomiting, or other acute changes, return to the emergency department for re-evaluation. Prescriptions: New albuterol sulfate 90 mcg/actuation HFA aerosol inhaler 2 puff inhalation 6XD PRN (Reason: shortness of breath or wheezing) Qty: 6.7 0RF prednisone 20 mg tablet 20 mg PO BID Qty: 10 0RF No Action albuterol sulfate 90 mcg/actuation HFA aerosol inhaler INHALATION PRN albuterol sulfate 1.25 mg/3 mL solution for nebulization 1.25 mg inhalation TID carvedilol 12.5 mg tablet 12.5 mg PO Q12H losartan 100 mg tablet 100 mg PO DAILY atorvastatin 40 mg tablet 40 mg PO QHS gabapentin 100 mg capsule 200 mg PO TID Patient Comments: 200am, 300mg afternoon, 300mg qhs alendronate 70 mg tablet 70 mg PO QWEEK aspirin 81 mg capsule 81 mg PO DAILY multivitamin Tablet 1 tab PO DAILY glucosamine QLg-kij-rucdughfep 500-167-400 mg tablet 1 tab PO DAILY Rx Instructions: give with meal/snack calcium carbonate 400 mg calcium (1,000 mg) tablet,chewable 400 mg PO DAILY Follow Up/Referrals: Temi Ibarra MD [Primary Care Provider] - Stand Alone Forms: [facility]
[2022-11-08 12:41] LABS: Basophils Absolute Auto 0.02 K/uL (0.00-0.30); Basophils Percent Auto 0.2 % (0.0-3.0); Eosinophils Absolute Auto 0.14 K/uL (0.00-0.50); Eosinophils Percent Auto 1.7 % (0.0-7.0); Hematocrit 37.8 % (33.0-51.0); Hemoglobin* 12.2 gm/dL (12.0-16.0); Immature Granulocytes Abs Auto 0.01 K/uL (0.00-0.30); Immature Granulocytes Pct Auto 0.1 %; Lymphocytes Percent Auto 18.4 % (20-44); Mean Corpuscular HGB Conc 32 gm/dL (32-36); Mean Corpuscular Hemoglobin 29 pg (26-34); Mean Corpuscular Volume 90 fL (80-100); Monocytes Percent Auto 8.3 % (0.0-11.0); Neutrophils Absolute Auto 5.96 K/uL (1.7-7.0); Neutrophils Percent Auto 71.3 % (42.0-72.0); Platelet Count* 226 K/uL (140-440); RDW Coefficient of Variation % 14.7 % (11.5-15.5); Red Blood Count 4.19 m/uL (4.00-5.20); White Blood Count* 8.36 K/uL (4.50-11.00)
[2022-11-08 12:45] LABS: Slide Review Reflex No
[2022-11-08 12:59] LABS: Chloride* 102 mmol/L (96-114); Potassium* 4.1 mmol/L (3.6-5.1); Sodium* 138 mmol/L (135-149)
[2022-11-08 13:00] LABS: Albumin* 3.7 g/dL (3.3-5.0)
[2022-11-08 13:02] LABS: Creatinine* 0.7 mg/dL (0.5-1.5); Est. Creatinine Clearance* 31.35; Estimated Glomerular Filt Rate 84 ml/min
[2022-11-08 13:03] LABS: Alkaline Phosphatase* 64 U/L (40-150); Aspartate Amino Transferase* 26 U/L (12-35); Bilirubin Total* 0.6 mg/dL (0.1-1.5); Blood Urea Nitrogen* 18 mg/dL (7-30); Calcium* 9.7 mg/dL (8.4-10.6); Carbon Dioxide* 31 mmol/L (20-32); Glucose* 92 mg/dL (60-115); Total Protein* 6.6 g/dL (6.0-8.3)
[2022-11-08 13:04] LABS: Alanine Aminotransferase* 20 U/L (4-35)
[2022-11-08 13:05] LABS: C Reactive Protein* 1.9 mg/dL (0.5-1.0)
[2022-11-08] MEDS: ASPIRIN 81 MG TAB.CHEW 324 MG PO (13:06)
[2022-11-08] MEDS: IPRAT-ALBUT 0.5-2.5 MG/3 ML NEB 1 NEB IH (13:08)
[2022-11-08 13:12] LABS: NT Pro B Type NatriureticPept* 504 pg/mL
[2022-11-08 13:15] LABS: D Dimer Quantitative* 3.38 ug/ml (0.00-0.50)
--- NOTE | 2022-11-08 13:19 | CRLHL7_ITS ---
For Patients: As a result of the Century Cures Act, medical imaging exams and procedure reports are released immediately into your electronic medical record. You may view this report before your referring provider. If you have questions, please contact your health care provider. INDICATION: Chest pain. Elevated D-dimer. COMPARISON: Chest radiograph from today and CT pulmonary angiogram from 06/05/2022. TECHNIQUE: : CT pulmonary angiography was performed with the uneventful intravenous administration of 95 cc of Isovue 370 while 1.5 mm thick axial sections were obtained from above the apices of the lungs to the lung bases. Please note that all CT scans at this facility use dose modulation, iterative reconstruction, and/or weight-based dosing when appropriate to reduce radiation dose to as low as reasonably achievable. FINDINGS: : There is no sign of pulmonary embolism, with normal enhancement and branching of the pulmonary arteries. The lungs are clear with no sign of significant infiltrate or mass. There is no sign of mediastinal or hilar mass or adenopathy. Again seen is moderate triple-vessel coronary calcification. The heart is otherwise normal in appearance for the patient`s age. 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 There is age appropriate appearance of the rest of the thoracic aorta and ascending great vessels. There is no sign of supraclavicular or axillary mass or adenopathy. The visualized superior liver, spleen, pancreas, left kidney, and adrenals are normal in appearance. Again seen is the 2.7 centimeter cyst arising from the upper pole of the right kidney. A cyst is now seen in the interpolar region of the right kidney measuring at least 4.3 centimeters in diameter, incompletely examined and not included on the previous study. Moderate cholelithiasis is seen with a dependent calculus measuring 1.6 centimeters in length. No sign of gallbladder wall thickening to suggest acute cholecystitis. There is a stable moderate T8 compression fracture with moderate superior endplate fracture. There is a stable mild superior T10 endplate fractures. Again seen is minimal scoliosis of the upper thoracic spine convex towards the left. IMPRESSION: No sign of pulmonary embolism. Nothing seen to explain the patient`s chest pain. 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 Moderate cholelithiasis with no sign of acute cholecystitis. Please note that all CT scans at this facility use dose modulation, iterative reconstruction, and/or weight-based dosing when appropriate to reduce radiation dose to as low as reasonably achievable. Dictated by Stephen Olivas MD @ 11/08/2022 3:21:50 PM (Electronically Signed)
[2022-11-08 13:31] LABS: PCR FLU A Negative PCR FLU A (Negative); PCR FLU B Negative PCR FLU B (Negative); PCR RSV Negative PCR RSV (Negative)
[2022-11-08 13:43] LABS: SARS PCR* Negative SARS-CoV-2 (Negative)
--- NOTE | 2022-11-08 15:00 | ED.NURSE ---
pt is reporting more frequent chest pain, approx ever 5 minutes. No new location, the same kind of pain as before.
--- NOTE | 2022-11-08 15:04 | ED.NURSE ---
notified of increase in frequency of chest pain
[2022-11-08 15:16] LABS: Troponin, Point-of-Care* 0.01 ng/ml (0.01-0.04)
== END 2022-11-08 15:55 | disposition home or self-care (01) ==
PROVIDERS: Emergency Provider Emergency Medicine; PCP Family Medicine
DX: R07.9 Chest pain, unspecified (principal); J40 Bronchitis, not specified as acute or chronic
CPT/HCPCS: 36415; 71046; 71260; 80048; 80076; 83880; 84484; 85025; 85379; 86140; 87631; 93005; 94640; 94761; 99284; 99285; A9270; Q9967

== ENCOUNTER 2022-11-23 10:55 | Inpatient (IN) | payer MEDICARE, SELFPAY ==
[2022-11-23] VITALS (32 sets, daily range): BP systolic 122–166; BP diastolic 63–75; PULSE 65–76; RESP 22–36; TEMP 36.2–37.2; O2SAT 69–98; BMI 22.7
--- NOTE | 2022-11-23 11:47 | CRLHL7_ITS ---
For Patients: As a result of the Century Cures Act, medical imaging exams and procedure reports are released immediately into your electronic medical record. You may view this report before your referring provider. If you have questions, please contact your health care provider. INDICATION: Dyspnea COMPARISON: November 08, 2022 TECHNIQUE: Single-view study November 23, 2022 at 12:38 p.m. FINDINGS: TUBES AND LINES: None. HEART AND MEDIASTINUM: The heart size is normal. The mediastinal contour appears normal for patient age. LUNGS AND PLEURAL SPACES: Diffuse airspace disease on the left in volume loss which is new. There is also probably a background of vascular congestion on the right.The findings are asymmetric and the finding on the left could be inflammatory. OSSEOUS STRUCTURES: Age-appropriate appearance. No acute focal finding. IMPRESSION: Background pattern of vascular congestion. Asymmetric airspace opacity diffusely on the left with volume loss probably related to pneumonia. Dictated by Neftaly Grubbs MD @ 11/23/2022 1:12:58 PM (Electronically Signed)
--- NOTE | 2022-11-23 11:49 | ED_ITS ---
HPI - SOB/Dyspnea General Chief Complaint: Shortness of Breath/Dyspnea Stated Complaint: Shortness of breath--low O2 Time Seen by Provider: 11/23/22 11:40 History of Present Illness HPI Narrative: This 87-year-old female comes in with hypoxia and shortness of breath. These symptoms arose over the last day or 2. She states that she slept well last night but awoke this morning and was able to speak in just 2 or 3 word sentences and was very short of breath. A oximetry reading at that time showed 83% on room air. She does use inhalers and has a history of COPD. She is also reporting a cough over the past couple weeks. She has been seen in the emergency department 15 days ago and had a couple clinic appointments also since then. She did have some swelling in her feet but her hydrochlorothiazide was increased and she has been elevating her legs. She states that that has re solved. She does not report any chest pain. She has not had any fevers. Related Data Home Medications Medication Instructions Recorded Confirmed alendronate 70 mg tablet 70 mg PO QWEEK 02/19/22 11/08/22 aspirin 81 mg capsule 81 mg PO DAILY 02/19/22 11/08/22 atorvastatin 40 mg tablet 40 mg PO QHS 02/19/22 11/08/22 calcium carbonate 400 mg calcium 400 mg PO DAILY 02/19/22 11/08/22 (1,000 mg) chewable tablet carvedilol 12.5 mg tablet 12.5 mg PO Q12H 02/19/22 11/08/22 gabapentin 100 mg capsule 200 mg PO TID 02/19/22 11/08/22 glucosamine REj-ryp-bjwkuipnbno 1 tab PO DAILY 02/19/22 11/08/22 500 mg-167 mg-400 mg tablet losartan 100 mg tablet 100 mg PO DAILY 02/19/22 11/08/22 multivitamin 1 tab PO DAILY 02/19/22 11/08/22 albuterol sulfate 1.25 mg/3 mL 1.25 mg inhalation TID 11/08/22 11/08/22 solution for nebulization albuterol sulfate 90 mcg/actuation inhalation PRN 11/08/22 aerosol inhaler Previous Rx's Medication Instructions Recorded albuterol sulfate 90 mcg/actuation 2 puff inhalation 6XD PRN 11/08/22 aerosol inhaler shortness of breath or wheezing #6.7 grams prednisone 20 mg tablet 20 mg PO BID #10 tabs 11/08/22 Allergies Allergy/AdvReac Type Severity Reaction Status Date / Time Sulfa (Sulfonamide Allergy Mild Nausea Verified 11/23/22 14:27 Antibiotics) Penicillins Allergy Unknown Rash Verified 11/23/22 14:27 Review of Systems Status of ROS: Reports: 10 or more systems reviewed and unremarkable except as noted in History and below Narrative: Constitutional: No fevers, no weight gain or loss. Eyes: No discharge. No vision changes. HENT: No congestion, no sore throat, no ear pain. Cardiovascular: No chest pain, no palpitations. Respiratory: Shortness of breath. Nonproductive cough. Gastrointestinal: No abdominal pain, no vomiting, no diarrhea. Genitourinary: No dysuria, no hematuria. Musculoskeletal: Normal range of motion. Skin: No rashes, no pruritis. Neurological: No dizziness, weakness, sensory change, speech change. Endo/Heme/Allergies: No bruising or bleeding. No polydipsia. Pysch: no suicidality, no anxiety, no insomnia. All other systems reviewed and are negative. [facility] Medical History Hyperlipemia ?E78.5 - Hyperlipidemia, unspecified (ICD-10) Essential (primary) hypertension ?I10 - Essential (primary) hypertension (ICD-10) Diverticulitis of colon (without mention of hemorrhage) ?K57.32 - Diverticulitis of large intestine without perforation or abscess without bleeding (ICD-10) Lymphocytic colitis ?K52.832 - Lymphocytic colitis (ICD-10) Acquired claw toe of right foot ?M20.5X1 - Other deformities of toe(s) (acquired), right foot (ICD-10) Enlarged and hypertrophic nails ?Q84.5 - Enlarged and hypertrophic nails (ICD-10) Peripheral vascular disease ?I73.9 - Peripheral vascular disease, unspecified (ICD-10) Acute respiratory failure with hypoxia ?J96.01 - Acute respiratory failure with hypoxia (ICD-10) ST elevation (STEMI) myocardial infarction involving right coronary artery ?I21.11 - ST elevation (STEMI) myocardial infarction involving right coronary artery (ICD-10) Surgical History History of carpal tunnel surgery of left wrist (11/25/19) ?Z98.890 - Other specified postprocedural states (ICD-10) History of carpal tunnel surgery of right wrist (01/25/20) ?Z98.890 - Other specified postprocedural states (ICD-10) Status post right hip replacement ?Z96.641 - Presence of right artificial hip joint (ICD-10) Social History Smoking Status: Former smoker What tobacco products do you use: cigarettes Smoking quit date/years: <= 15 years ago Do you use any of these nicotine containing products: None Second hand tobacco smoke exposure: No How often do you have a drink containing alcohol: never AUDIT-C Alcohol total score: 0 Non-prescribed substance use: denies use service: No Exam Narrative: Exam Narrative: Constitutional: Well-developed, well-nourished, no acute distress. HEENT: Normocephalic, atraumatic. Neck: Normal range of motion. Nontender. Supple. Heart: Regular. No murmurs. Normal rate. Intact distal pulses. Lungs: Bilateral wheezing and rhonchi. Use of accessory muscles for breathing. Decreased air movement. Able to speak in 2 or 3 words at a time. Oximetry is at 94% with oxygen by nasal cannula. Abdomen: Normal bowel sounds. Nontender. No rebound tenderness. Genitalia: Deferred. Back: No midline tenderness. Normal range of motion. Extremities: Normal range of motion. No injury. Skin: Intact. No rash. Warm. No erythema or pallor. Neurologic: No altered sensation. No weakness. Alert and oriented. Psychiatric: No suicidality. No anxiety or depression. No insomnia. Nursing notes and vitals signs are reviewed. Const: Vital Signs, click to edit/add: Vital Signs - 24 hr 11/23/22 11:23 11/23/22 11:44 11/23/22 11:45 Temperature 98.8 F Pulse Rate 70 71 Pulse Rate [Right Pulse Oximeter] 74 Respiratory Rate 36 H 24 Blood Pressure Blood Pressure [Ri ght Upper Arm] 166/72 H Pulse Oximetry 87 L 94 93 Oxygen Delivery Me thod Room Air Nasal Cannula Oxygen Flow Rate 3 11/23/22 11:47 11/23/22 12:00 11/23/22 12:21 Temperature Pulse Rate 68 68 Pulse Rate [Right Pulse Oximeter] Respiratory Rate Blood Pressure Blood Pressure [Ri ght Upper Arm] Pulse Oximetry 93 98 95 Oxygen Delivery Me thod Nasal Cannula Oxygen Flow Rate 3 11/23/22 12:30 11/23/22 12:45 11/23/22 12:55 Temperature Pulse Rate 67 65 Pulse Rate [Right Pulse Oximeter] 65 Respiratory Rate 33 H Blood Pressure Blood Pressure [Ri ght Upper Arm] 148/63 H Pulse Oximetry 96 95 94 Oxygen Delivery Me thod Nasal Cannula Oxygen Flow Rate 2 11/23/22 12:56 11/23/22 12:59 11/23/22 13:01 Temperature 98.6 F Pulse Rate 67 Pulse Rate [Right Pulse Oximeter] Respiratory Rate Blood Pressure 148/63 H Blood Pressure [Ri ght Upper Arm] Pulse Oximetry 94 69 L Oxygen Delivery Me thod Oxygen Flow Rate 11/23/22 13:15 11/23/22 13:30 11/23/22 13:54 Temperature Pulse Rate 71 71 71 Pulse Rate [Right Pulse Oximeter] Respiratory Rate Blood Pressure Blood Pressure [Ri ght Upper Arm] Pulse Oximetry 93 94 88 Oxygen Delivery Me thod Oxygen Flow Rate 11/23/22 14:31 11/23/22 14:34 Temperature 98.9 F Pulse Rate Pulse Rate [Right Pulse Oximeter] 76 Respiratory Rate 30 H Blood Pressure Blood Pressure [Ri ght Upper Arm] 162/74 H Pulse Oximetry 91 Oxygen Delivery Me thod Nasal Cannula Oxygen Flow Rate 2 Course Vital Signs Vital signs: Initial Vital Signs Temperature 98.8 F 11/23/22 11:23 Temperature Source Temporal Artery Scan 11/23/22 11:23 Pulse Rate 74 11/23/22 11:23 Respiratory Rate 36 H 11/23/22 11:23 Blood Pressure 166/72 H 11/23/22 11:23 Blood Pressure Mean 103 11/23/22 11:23 Blood Pressure Position Sitting 11/23/22 11:23 Pulse Oximetry 87 L 11/23/22 11:23 Oxygen Delivery Method Room Air 11/23/22 11:23 Vital Signs Temperature 98.8 F 11/23/22 11:23 Pulse Rate 74 11/23/22 11:23 Respiratory Rate 36 H 11/23/22 11:23 Blood Pressure 166/72 H 11/23/22 11:23 Pulse Oximetry 87 L 11/23/22 11:23 Oxygen Delivery Method Room Air 11/23/22 11:23 Temperature 98.9 F 11/23/22 14:34 Pulse Rate 76 11/23/22 14:31 Respiratory Rate 30 H 11/23/22 14:31 Blood Pressure 162/74 H 11/23/22 14:31 Pulse Oximetry 91 11/23/22 14:31 Oxygen Delivery Method Nasal Cannula 11/23/22 14:31 Oxygen Flow Rate 2 11/23/22 14:31 MDM - SOB/Dyspnea MDM Narrative Medical decision making narrative: This patient comes in with hypoxia and an oximetry reading at home at 83% on room air. She is able to speak in 1 or 2 words at a time due to her shortness of breath. She has been coughing and has been seen over the past couple weeks with various symptoms but her shortness of breath has worsened recently. She arrives with normal vital signs except for her respiratory rate is increased and has an increase in her blood pressure. Her oximetry is in the 90s% on 2 L by nasal cannula. She is still using accessory muscles for breathing. Chest x-ray shows suspicion for left-sided pneumonia. The patient has a elevated D-dimer today which is similar to what value was acquired about 2 weeks ago. Given her recent shortness of breath I did repeat a CT scan to rule out pulmonary embolism. There is no evidence of embolism but there are findings consistent with pneumonia. After blood cultures are obtained the patient did receive IV doses of Rocephin and Zithromax. She also received a DuoNeb treatment. Lab Data Labs: Lab Results 11/23/22 11/23/22 Range/Units 11:48 12:20 WBC 17.94 H (4.50-11.00) K/uL RBC 4.34 (4.00-5.20) m/uL Hgb 12.6 (12.0-16.0) gm/dL Hct 39.0 (33.0-51.0) % MCV 90 (80-100) fL MCH 29 (26-34) pg MCHC 32 (32-36) gm/dL RDW Coeff of Garrick 15.0 (11.5-15.5) % Plt Count 252 (140-440) K/uL Neut % (Auto) 90.1 H (42.0-72.0) % Lymph % (Auto) 4.5 L (20-44) % [place] % (Auto) 4.6 (0.0-11.0) % Eos % (Auto) 0.6 (0.0-7.0) % Baso % (Auto) 0.1 (0.0-3.0) % Neut # (Auto) 16.20 H (1.7-7.0) K/uL Lymph # (Auto) 0.80 L (0.90-2.90) K/uL [place] # (Auto) 0.80 (0.00-0.90) K/UL Eos # (Auto) 0.10 (0.00-0.50) K/uL Baso # (Auto) 0.00 (0.00-0.30) K/uL Abs Immat Gran (auto) 0.00 (0.00-0.30) K/uL Imm/Tot Granulo (auto) 0.1 % D-Dimer Quant (PE/DVT) 3.44 H (0.00-0.50) ug/ml VBG pH 7.416 (7.32-7.43) VBG pCO2 46 (40-50) mmHG VBG pO2 35.3 (25-47) mmHG VBG HCO3 29 H (21-28) mmol/L Sodium 136 (135-149) mmol/L Potassium 3.7 (3.6-5.1) mmol/L Chloride 100 (96-114) mmol/L Carbon Dioxide 27 (20-32) mmol/L BUN 19 (7-30) mg/dL Creatinine 0.7 (0.5-1.5) mg/dL Estimated GFR 84 ml/min Glucose 181 H (60-115) mg/dL Calcium 9.0 (8.4-10.6) mg/dL C-Reactive Protein 3.0 H (0.5-1.0) mg/dL NT-Pro-B Natriuret Pep 623 pg/mL Procalcitonin 0.06 (<0.50) ng/mL SARS-CoV-2 (PCR) Negative SARS-CoV-2 (Negative) Influenza Type A (PCR) Negative PCR FLU A (Negative) Influenza Type B (PCR) Negative PCR FLU B (Negative) RSV (PCR) Negative PCR RSV (Negative) POC Troponin I 0.00 L (0.01-0.04) ng/ml Imaging Data Chest x-ray: Radiologist's impression: Background pattern of vascular congestion. Asymmetric airspace opacity diffusely on the left with volume loss probably related to pneumonia. ECG Data Attestation: I personally reviewed and interpreted this ECG as follows: Interpretation: Normal sinus rhythm. Rate is 70 beats per minute. There are no ST or T-wave abnormalities. Discharge Plan Discharge Clinical Impression: Acute infective exacerbation of chronic obstructive airway disease, Pneumonia Patient Disposition: Admitted As Inpatient Condition: Unchanged Prescriptions: No Action albuterol sulfate 90 mcg/actuation HFA aerosol inhaler INHALATION PRN albuterol sulfate 1.25 mg/3 mL solution for nebulization 1.25 mg inhalation TID albuterol sulfate 90 mcg/actuation HFA aerosol inhaler 2 puff inhalation 6XD PRN (Reason: shortness of breath or wheezing) Qty: 6.7 0RF prednisone 20 mg tablet 20 mg PO BID Qty: 10 0RF carvedilol 12.5 mg tablet 12.5 mg PO Q12H losartan 100 mg tablet 100 mg PO DAILY atorvastatin 40 mg tablet 40 mg PO QHS gabapentin 100 mg capsule 200 mg PO TID Patient Comments: 200am, 300mg afternoon, 300mg qhs alendronate 70 mg tablet 70 mg PO QWEEK aspirin 81 mg capsule 81 mg PO DAILY multivitamin Tablet 1 tab PO DAILY glucosamine [id number]-ook-[id number] 500-167-400 mg tablet 1 tab PO DAILY Rx Instructions: give with meal/snack calcium carbonate 400 mg calcium (1,000 mg) tablet,chewable 400 mg PO DAILY Follow Up/Referrals: Temi Ibarra MD [Primary Care Provider] -
[2022-11-23 12:29] LABS: HCO3 VBG 29 mmol/L (21-28); PCO2 VBG 46 mmHG (40-50); PO2 VBG 35.3 mmHG (25-47); pH VBG 7.416 (7.32-7.43)
[2022-11-23] MEDS: IPRAT-ALBUT 0.5-2.5 MG/3 ML NEB 1 NEB IH ×2 (12:45→17:27)
[2022-11-23 13:00] LABS: Chloride* 100 mmol/L (96-114); Potassium* 3.7 mmol/L (3.6-5.1); Sodium* 136 mmol/L (135-149)
[2022-11-23 13:02] LABS: Basophils Percent Auto 0.1 % (0.0-3.0); Eosinophils Percent Auto 0.6 % (0.0-7.0); Hemoglobin* 12.6 gm/dL (12.0-16.0); Immature Granulocytes Pct Auto 0.1 %; Lymphocytes Percent Auto 4.5 % (20-44); Mean Corpuscular HGB Conc 32 gm/dL (32-36); Mean Corpuscular Hemoglobin 29 pg (26-34); Mean Corpuscular Volume 90 fL (80-100); Monocytes Percent Auto 4.6 % (0.0-11.0); Neutrophils Percent Auto 90.1 % (42.0-72.0); Platelet Count* 252 K/uL (140-440); Red Blood Count 4.34 m/uL (4.00-5.20); White Blood Count* 17.94 K/uL (4.50-11.00)
[2022-11-23 13:03] LABS: Blood Urea Nitrogen* 19 mg/dL (7-30); Carbon Dioxide* 27 mmol/L (20-32); Creatinine* 0.7 mg/dL (0.5-1.5); Estimated Glomerular Filt Rate 84 ml/min; Glucose* 181 mg/dL (60-115)
[2022-11-23 13:06] LABS: Slide Review Reflex No
[2022-11-23 13:07] LABS: D Dimer Quantitative* 3.44 ug/ml (0.00-0.50)
[2022-11-23 13:39] LABS: PCR FLU A Negative PCR FLU A (Negative); PCR FLU B Negative PCR FLU B (Negative); PCR RSV Negative PCR RSV (Negative)
[2022-11-23 13:41] LABS: SARS PCR* Negative SARS-CoV-2 (Negative)
--- NOTE | 2022-11-23 13:44 | CRLHL7_ITS ---
For Patients: As a result of the Century Cures Act, medical imaging exams and procedure reports are released immediately into your electronic medical record. You may view this report before your referring provider. If you have questions, please contact your health care provider. INDICATION: Dyspnea. Elevated D-dimer COMPARISON: November 08, 2022 TECHNIQUE: : CT examination of the chest was performed with the uneventful intravenous administration of 95 cc of Isovue 370 while thin axial sections were obtained from above the apices of the lungs to the lung bases. Please note that all CT scans at this facility use dose modulation, iterative reconstruction, and/or weight-based dosing when appropriate to reduce radiation dose to as low as reasonably achievable. FINDINGS: : HEART and MEDIASTINUM: The heart is mildly enlarged. Atherosclerotic vascular and valvular calcifications. No mediastinal or hilar adenopathy or mass. 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 LUNGS and PLEURAL SPACES: Background of mild vascular congestion without overt edema. Fluid within multiple bronchi bilaterally suggesting that the below described process is due to aspiration. RIGHT SIDE: Significant emphysema. Patchy opacities primarily at the bases probably inflammatory. Partial collapse of the right middle lobe. Normal right pleural space LEFT SIDE: Dense consolidation of the entirety of the left upper lobe and lingula with significant volume loss/collapse new since the prior study. This appears to be due to pneumonia. Elsewhere in the left lung, there is patchy airspace disease primarily at the bases likely atelectatic and inflammatory. Small left effusion. VISUALIZED UPPER ABDOMEN: No acute appearing finding OSSEOUS STRUCTURES: No acute appearing finding TUBES and LINES: None. IMPRESSION: 1. There is no finding of acute pulmonary embolus. 2. 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 3. Background pattern of significant emphysema. Mild background of vascular congestion 4. Bilateral multifocal airspace disease, left much worse than right. The main feature is dense consolidation of the left upper lobe and lingula with volume loss. There is a small left effusion. All these findings are probably due to pneumonia. Please review the comments for details 5. Fluid within multiple bilateral bronchi primarily in a dependent distribution suggesting that the lung findings are due to significant aspiration Please note that all CT scans at this facility use dose modulation, iterative reconstruction, and/or weight-based dosing when appropriate to reduce radiation dose to as low as reasonably achievable. Dictated by Neftaly Grubbs MD @ 11/23/2022 3:14:45 PM (Electronically Signed)
[2022-11-23 14:22] LABS: NT Pro B Type NatriureticPept* 623 pg/mL; Procalcitonin* 0.06 ng/mL (<0.50)
[2022-11-23] MEDS: cefTRIAXone 1 GM in 0.9 % SODIUM CHLORIDE Mini-bag 100 ML IVPB (14:25)
[2022-11-23] MEDS: AZITHROMYCIN 100 MG/ML inj 500 MG IVPB (15:59)
--- NOTE | 2022-11-23 16:30 | ED.NURSE ---
[facility]
--- NOTE | 2022-11-23 17:47 | P.IMHP_ITS ---
Hospitalist- H&P: HPI History of Present Illness Time Seen by Provider: 15:30 Date Seen: 11/23/22 Chief complaint: Shortness of breath Narrative: Nora Pires is a 87 year old woman who has had a cough since early November. Has underlying COPD and emphysema. Started on a course of prednisone emergency department on 08 November 2022. Did not seem to get better. For the last 1-2 days has had increasing dyspnea. Ordinarily has dyspnea with exertion. More recentl y has had dyspnea at rest or minimal exertion such as even talking. Denies fever, rigors, diaphoresis. Denies aspiration. Oxygen saturations at home as low as 82%. Also noted increasing bilateral lower extremity edema. Increased dose of hydrochlorothiazide. Has been keeping legs elevated. Not worsening. Denies chest heaviness, pressure, tightness, or pain. Denies syncope or near- syncope. Denies nausea vomiting. Denies palpitations or chest fluttering. Review of Systems Status of ROS: Reports: 10 or more systems reviewed and unremarkable except as noted in History and below [facility] Medical History History of flexible sigmoidoscopy ?Z98.890 - Other specified postprocedural states (ICD-10) Claw toe, acquired ?M20.5X9 - Other deformities of toe(s) (acquired), unspecified foot (ICD-10) Shingles ?B02.9 - Zoster without complications (ICD-10) Osteoporosis ?M81.0 - Age-related osteoporosis without current pathological fracture (ICD- 10) Chronic obstructive pulmonary disease ?J44.9 - Chronic obstructive pulmonary disease, unspecified (ICD-10) Allergic rhinitis ?J30.9 - Allergic rhinitis, unspecified (ICD-10) Diverticulosis ?K57.90 - Diverticulosis of intestine, part unspecified, without perforation or abscess without bleeding (ICD-10) Acute infective exacerbation of chronic obstructive airway disease ?J44.1 - Chronic obstructive pulmonary disease with (acute) exacerbation (ICD-10) Right rotator cuff tear arthropathy ?M75.101 - Unspecified rotator cuff tear or rupture of right shoulder, not specified as traumatic (ICD-10) ?M12.811 - Other specific arthropathies, not elsewhere classified, right shoulder (ICD-10) Closed left humeral fracture ?S42.302A - Unspecified fracture of shaft of humerus, left arm, initial encounter for closed fracture (ICD-10) Hyperlipemia ?E78.5 - Hyperlipidemia, unspecified (ICD-10) Essential (primary) hypertension ?I10 - Essential (primary) hypertension (ICD-10) Diverticulitis of colon (without mention of hemorrhage) ?K57.32 - Diverticulitis of large intestine without perforation or abscess without bleeding (ICD-10) Lymphocytic colitis ?K52.832 - Lymphocytic colitis (ICD-10) Acquired claw toe of right foot ?M20.5X1 - Other deformities of toe(s) (acquired), right foot (ICD-10) Enlarged and hypertrophic nails ?Q84.5 - Enlarged and hypertrophic nails (ICD-10) Peripheral vascular disease ?I73.9 - Peripheral vascular disease, unspecified (ICD-10) Acute respiratory failure with hypoxia ?J96.01 - Acute respiratory failure with hypoxia (ICD-10) ST elevation (STEMI) myocardial infarction involving right coronary artery ?I21.11 - ST elevation (STEMI) myocardial infarction involving right coronary artery (ICD-10) Surgical History (Updated 11/23/22 @ 17:42 by Levy Rojas MD) S/P tonsillectomy and adenoidectomy ?Z90.89 - Acquired absence of other organs (ICD-10) S/P total abdominal hysterectomy ?Z90.710 - Acquired absence of both cervix and uterus (ICD-10) Status post right knee replacement ?Z96.651 - Presence of right artificial knee joint (ICD-10) Status post bunionectomy ?Z98.890 - Other specified postprocedural states (ICD-10) Status post appendectomy ?Z90.49 - Acquired absence of other specified parts of digestive tract (ICD- 10) History of carpal tunnel surgery of left wrist (11/25/19) ?Z98.890 - Other specified postprocedural states (ICD-10) History of carpal tunnel surgery of right wrist (01/25/20) ?Z98.890 - Other specified postprocedural states (ICD-10) Status post right hip replacement ?Z96.641 - Presence of right artificial hip joint (ICD-10) Family History (Updated 11/23/22 @ 17:47 by Levy Rojas MD) Sister Breast cancer, Onset Age: 50 Family/Other Breast cancer Father Heart disease Social History (Updated 11/23/22 @ 17:45 by Levy Rojas MD) Narrative: . Lives with . Retired. Former smoker, 1/2 pack per day for 60 years, quit over 15 years ago. Does not drink alcoholic beverages. Does not use street or recreational drugs. Designates , Anjel Pires, as power of civil litigation attorney for health should that be required. Requests DNR, DNI resuscitation. Primary care physician is Dr. Ibarra. Smoking Status: Former smoker What tobacco products do you use: cigarettes Smoking quit date/years: <= 15 years ago Do you use any of these nicotine containing products: None Second hand tobacco smoke exposure: No How often do you have a drink containing alcohol: never AUDIT-C Alcohol total score: 0 Non-prescribed substance use: denies use service: No Meds Home Medications and Allergies Home Medications Medication Instructions Recorded Confirmed Type alendronate 70 mg tablet 70 mg PO SA@07 02/19/22 11/23/22 History aspirin 81 mg capsule 81 mg PO DAILY 02/19/22 11/23/22 History atorvastatin 40 mg tablet 40 mg PO QHS 02/19/22 11/23/22 History gabapentin 100 mg capsule 200 - 300 mg PO TID 02/19/22 11/23/22 History losartan 100 mg tablet 100 mg PO DAILY 02/19/22 11/23/22 History multivitamin 1 tab PO DAILY 02/19/22 11/23/22 History albuterol sulfate 90 mcg/actuation 2 puff inhalation Q4H PRN 11/08/22 11/23/22 History aerosol inhaler calcium carbonate 500 mg-vitamin 1 tab PO DAILY 11/23/22 11/23/22 History D3 10 mcg (400 unit) tablet (Calcium 500 + D) carvedilol 25 mg tablet 25 mg PO BID 11/23/22 11/23/22 History hydrochlorothiazide 12.5 mg capsule 12.5 mg PO DAILY 11/23/22 11/23/22 History ipratropium 0.5 mg-albuterol 3 mg 3 ml inhalation QID PRN 11/23/22 11/23/22 History (2.5 mg base)/3 mL nebulization soln Allergies Allergy/AdvReac Type Severity Reaction Status Date / Time Sulfa (Sulfonamide Allergy Mild Nausea Verified 11/23/22 14:27 Antibiotics) Penicillins Allergy Unknown Rash Verified 11/23/22 14:27 Exam Narrative: Exam Narrative: I examined the patient emergency department, semi recumbent position of exam table. Vision and hearing are grossly normal. Appears for the most part comfortable. Nevertheless tachypneic with room air resting respiratory rate 24. No acute distress. Tells me she feels improved from when she 1st came in. Alert and oriented to self, place, time, situation. Friendly, articulate, cooperative. Mood and affect are congruent. Tympanic membranes are normal. Midline nasal septum. Dentition in fair repair. Neck is supple. Midline trachea. No JVD or hepatojugular reflux. No carotid bruits. Lungs with coarse rhonchi and scattered rales and expiratory wheezing. Chest wall excursions are full. No CVA tenderness or tenderness to palpation over spine. Heart tones with regular rhythm, normal S1-S2. Systolic murmur. No gallop or rub. Abdomen with active bowel sounds, soft, nontender. No organomegaly or masses. Trace pretibial edema bilaterally. Moves all 4 extremities. No focal motor neurologic deficits. Const: Vital Signs, click to edit/add: Vital Signs - 24 hr 11/23/22 11:23 11/23/22 11:44 11/23/22 11:45 Temperature 98.8 F Pulse Rate 70 71 Pulse Rate [Right Pulse Oximeter] 74 Respiratory Rate 36 H 24 Blood Pressure Blood Pressure [Ri ght Upper Arm] 166/72 H Pulse Oximetry 87 L 94 93 Oxygen Delivery Me thod Room Air Nasal Cannula Oxygen Flow Rate 3 11/23/22 11:47 11/23/22 12:00 11/23/22 12:21 Temperature Pulse Rate 68 68 Pulse Rate [Right Pulse Oximeter] Respiratory Rate Blood Pressure Blood Pressure [Ri ght Upper Arm] Pulse Oximetry 93 98 95 Oxygen Delivery Me thod Nasal Cannula Oxygen Flow Rate 3 11/23/22 12:30 11/23/22 12:45 11/23/22 12:55 Temperature Pulse Rate 67 65 Pulse Rate [Right Pulse Oximeter] 65 Respiratory Rate 33 H Blood Pressure Blood Pressure [Ri ght Upper Arm] 148/63 H Pulse Oximetry 96 95 94 Oxygen Delivery Me thod Nasal Cannula Oxygen Flow Rate 2 11/23/22 12:56 11/23/22 12:59 11/23/22 13:01 Temperature 98.6 F Pulse Rate 67 Pulse Rate [Right Pulse Oximeter] Respiratory Rate Blood Pressure 148/63 H Blood Pressure [Ri ght Upper Arm] Pulse Oximetry 94 69 L Oxygen Delivery Me thod Oxygen Flow Rate 11/23/22 13:15 11/23/22 13:30 11/23/22 13:54 Temperature Pulse Rate 71 71 71 Pulse Rate [Right Pulse Oximeter] Respiratory Rate Blood Pressure Blood Pressure [Ri ght Upper Arm] Pulse Oximetry 93 94 88 Oxygen Delivery Me thod Oxygen Flow Rate 11/23/22 14:31 11/23/22 14:32 11/23/22 14:33 Temperature Pulse Rate 76 76 Pulse Rate [Right Pulse Oximeter] 76 Respiratory Rate 30 H Blood Pressure 162/74 H Blood Pressure [Ri ght Upper Arm] 162/74 H Pulse Oximetry 91 91 92 Oxygen Delivery Me thod Nasal Cannula Oxygen Flow Rate 2 11/23/22 14:34 11/23/22 14:45 11/23/22 15:00 Temperature 98.9 F Pulse Rate 75 73 Pulse Rate [Right Pulse Oximeter] Respiratory Rate Blood Pressure Blood Pressure [Ri ght Upper Arm] Pulse Oximetry 91 93 Oxygen Delivery Me thod Oxygen Flow Rate 11/23/22 15:15 11/23/22 15:30 11/23/22 15:47 Temperature Pulse Rate 71 70 75 Pulse Rate [Right Pulse Oximeter] Respiratory Rate Blood Pressure Blood Pressure [Ri ght Upper Arm] Pulse Oximetry 93 94 93 Oxygen Delivery Me thod Oxygen Flow Rate 11/23/22 16:00 11/23/22 16:15 11/23/22 16:19 Temperature Pulse Rate 71 69 69 Pulse Rate [Right Pulse Oximeter] Respiratory Rate Blood Pressure 122/67 Blood Pressure [Ri ght Upper Arm] Pulse Oximetry 93 94 94 Oxygen Delivery Me thod Oxygen Flow Rate 11/23/22 16:20 11/23/22 16:30 Temperature Pulse Rate 68 70 Pulse Rate [Right Pulse Oximeter] Respiratory Rate Blood Pressure Blood Pressure [Ri ght Upper Arm] Pulse Oximetry 94 95 Oxygen Delivery Me thod Oxygen Flow Rate Documenting provider has reviewed patient's vital signs: yes Hospitalist - H&P: Result Labs Labs: Short CBC 07/21/23 Range/Units 12:20 WBC 17.94 H (4.50-11.00) K/uL Hgb 12.6 (12.0-16.0) gm/dL Hct 39.0 (33.0-51.0) % Plt Count 252 (140-440) K/uL [facility] 11/23/22 12:20 Sodium 136 Potassium 3.7 Chloride 100 Carbon Dioxide 27 BUN 19 Creatinine 0.7 Glucose 181 H Calcium 9.0 ECG Attestation: I personally reviewed and interpreted this ECG as follows: ECG interpretation date: 11/23/22 ECG interpretation time: 15:30 Interpretation: Normal sinus rhythm. Poor R-wave progression anteriorly. No acute ischemia. Imaging Chest x-ray: Attestation: I have reviewed the pertinent imaging results. Radiologist's impression: IMPRESSION: Background pattern of vascular congestion. Asymmetric airspace opacity diffusely on the left with volume loss probably related to pneumonia. CT scan - chest: Attestation: I have reviewed the pertinent imaging results. Radiologist's impression: IMPRESSION: 1. There is no finding of acute pulmonary embolus. 2. 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 3. Background pattern of significant emphysema. Mild background of vascular congestion 4. Bilateral multifocal airspace disease, left much worse than right. The main feature is dense consolidation of the left upper lobe and lingula with volume loss. There is a small left effusion. All these findings are probably due to pneumonia. Please review the comments for details 5. Fluid within multiple bilateral bronchi primarily in a dependent distribution suggesting that the lung findings are due to significant aspiration Assessment and Plan Assessment and plan (1) Acute on chronic respiratory failure with hypoxemia: Status: Acute (2) Acute infective exacerbation of chronic obstructive airway disease: Status: Acute (3) Pneumonia: Status: Acute (4) Heart failure with preserved ejection fraction: Status: Acute Plan 1. Reviewed impression with patient and . 2. Answered their questions to their satisfaction. 3. Admit to inpatient status 4. IV ceftriaxone and oral azithromycin. 5. Oxygen supplementation. Aerobika device use. 6. Continue with corticosteroids orally. 7. Await results of echocardiogram. 8. Continue with other supportive efforts, including bronchodilators. 9. They remain agreeable about admitting patient to the hospital at this time.
[2022-11-23] MEDS: predniSONE 20 MG TABLET PO (18:00)
--- NOTE | 2022-11-23 20:16 | RESP.RT ---
Patient was diagnosed with COPD and takes an Albuterol inhaler. She was not taking it correctly and received instruction on how to use a spacer and was recommended to draft roller picker a spacer at her local pharmacy. She has crackles and a very loose cough. She is able to do the Aerobika, but does need repeated instruction. I do recommend maintenance medication be prescribed by her PCP.
[2022-11-23] MEDS: GABAPENTIN 300 MG CAPSULE PO (20:19)
[2022-11-23] MEDS: ATORVASTATIN CALCIUM 40 MG TABLET PO (20:20)
[2022-11-23] MEDS: carvediloL 25 MG TABLET PO (20:20)
[2022-11-23] MEDS: ENOXAPARIN 30 MG/0.3ML INJ SUBCUT (20:20)
[2022-11-23] MEDS: SODIUM CHLORIDE 0.9 % (FLUSH) 10 ML SYRINGE 5 ML IVF (20:21)
--- NOTE | 2022-11-23 23:15 | PC.NURSE ---
Shift [id number]- Patient arrives to floor at approximately 1640 with at bedside. Appears alert and oriented, though is forgetful. She is instructed to call for assistance getting out of bed, is agreeable, though she is later found to have taken herself to bathroom independently. Bed alarm now engaged. She is very SOB with activity. Continues to be on O2 with saturations in low 90s%. Productive cough.
[2022-11-24] VITALS (7 sets, daily range): BP systolic 104–160; BP diastolic 58–86; PULSE 58–90; RESP 16–22; TEMP 36.4–36.7; O2SAT 90–93
[2022-11-24] MEDS: IPRAT-ALBUT 0.5-2.5 MG/3 ML NEB 1 NEB IH ×3 (00:11→17:44)
[2022-11-24 06:00] LABS: HCO3 VBG 26 mmol/L (21-28); Lactate* 1.5 mmol/L (0.5-1.9); PCO2 VBG 41 mmHG (40-50); PO2 VBG 71.6 mmHG (25-47); pH VBG 7.417 (7.32-7.43)
[2022-11-24 06:04] LABS: Basophils Percent Auto 0.1 % (0.0-3.0); Hematocrit 39.3 % (33.0-51.0); Hemoglobin* 12.7 gm/dL (12.0-16.0); Immature Granulocytes Pct Auto 0.9 %; Lymphocytes Percent Auto 5.3 % (20-44); Mean Corpuscular HGB Conc 32 gm/dL (32-36); Mean Corpuscular Hemoglobin 29 pg (26-34); Mean Corpuscular Volume 89 fL (80-100); Monocytes Percent Auto 1.6 % (0.0-11.0); Neutrophils Percent Auto 92.1 % (42.0-72.0); Platelet Count* 226 K/uL (140-440); RDW Coefficient of Variation % 14.9 % (11.5-15.5); Red Blood Count 4.43 m/uL (4.00-5.20)
[2022-11-24 06:05] LABS: Slide Review Reflex No
[2022-11-24 06:18] LABS: Chloride* 102 mmol/L (96-114); Sodium* 136 mmol/L (135-149)
[2022-11-24 06:19] LABS: Potassium* 3.7 mmol/L (3.6-5.1)
[2022-11-24 06:21] LABS: Creatinine* 0.6 mg/dL (0.5-1.5); Est. Creatinine Clearance* 29.91; Estimated Glomerular Filt Rate 87 ml/min
[2022-11-24 06:22] LABS: Blood Urea Nitrogen* 14 mg/dL (7-30); Calcium* 8.9 mg/dL (8.4-10.6); Carbon Dioxide* 25 mmol/L (20-32); Glucose* 150 mg/dL (60-115); Phosphorus* 3.8 mg/dL (2.5-4.5)
[2022-11-24 06:38] LABS: Procalcitonin* 0.09 ng/mL (<0.50)
[2022-11-24 06:45] LABS: C Reactive Protein* 12.6 mg/dL (0.5-1.0); NT Pro B Type NatriureticPept* 998 pg/mL; Troponin I* < 0.01 ng/mL (0.01-0.04)
[2022-11-24 07:00] LABS: Thyroid Stimulating Hormone* 0.864 uIU/mL (0.270-4.20)
--- NOTE | 2022-11-24 07:24 | PC.NURSE ---
Shift note: Pt is SOB with any exertion, BSC used, duo-nebs administered as prescribed while pt was awake
--- NOTE | 2022-11-24 07:26 | PM.IMPN1 ---
Progress Note: A&P Assessment and plan (1) Acute on chronic respiratory failure with hypoxemia: Problem details: dense ARIANA pneumonia (aspiration?) CHF excerbation COPD excerbation -abx for CAP, adding aspiration precautions (eat slower, chew well, chin down, slightly thickened) -started prednisone 20 BID at admisson -started lasix 40 oral with potassium 11/24 -continue resp support and hygiene Status: Acute (2) Acute infective exacerbation of chronic obstructive airway disease: Problem details: -as above -oxygen to support nebs, prednisone, abx Status: Acute (3) Pneumonia: Problem details: -concern for aspiration -day 2 (saturday) will be difficult to get a swallow study but will order and start thickened fluids and solids - aspiration teaching bedside RN to do Status: Acute (4) Heart failure with preserved ejection fraction: Problem details: -echo ordered -lasix trial 11/24 (40mg po with potassium supplement) -54 kg on admission, daily weights Status: Acute Subjective Date Seen: 11/24/22 Interval history: Daily Progress Note - Hospital Medicine Day #: 2 CC: pneumonia, heart failure, COPD - new respiratory failure OVERNIGHT UPDATES FROM STAFF & MED, LAB, IMAGING UPDATES feeling a little better. coughing some phlegm up. no fever. oxygen demand is about the same 1-2L working with RT on aerobika report from is she eats fast and sometimes cough but he or she wasn't aware of major problems with aspiration. CTA on admission 11/23 IMPRESSION: 1. There is no finding of acute pulmonary embolus. 2. 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 3. Background pattern of significant emphysema. Mild background of vascular congestion 4. Bilateral multifocal airspace disease, left much worse than right. The main feature is dense consolidation of the left upper lobe and lingula with volume loss. There is a small left effusion. All these findings are probably due to pneumonia. Please review the comments for details 5. Fluid within multiple bilateral bronchi primarily in a dependent distribution suggesting that the lung findings are due to significant aspiration Objective: small framed; alert; insightful. Vitals: see above Lungs: junk on the left; exp wheeze minimal. Cardiac: S1S2. no edema. Disposition/Potential discharge - Likely to return to previous living situation. Total time is 35 minutes with greater than 50% spent in counseling and coordination of care. Exam Const: Vital Signs, click to edit/add: Vital Signs - 24 hr 11/23/22 11:23 11/23/22 11:44 11/23/22 11:45 Temperature 98.8 F Pulse Rate 70 71 Pulse Rate [Pulse Oximeter] Pulse Rate [Right Pulse Oximeter] 74 Respiratory Rate 36 H 24 Blood Pressure Blood Pressure [Ri ght Arm] Blood Pressure [Ri ght Upper Arm] 166/72 H Pulse Oximetry 87 L 94 93 Oxygen Delivery Me thod Room Air Nasal Cannula Oxygen Flow Rate 3 Fraction of Inspir ed Oxygen 11/23/22 11:47 11/23/22 12:00 11/23/22 12:21 Temperature Pulse Rate 68 68 Pulse Rate [Pulse Oximeter] Pulse Rate [Right Pulse Oximeter] Respiratory Rate Blood Pressure Blood Pressure [Ri ght Arm] Blood Pressure [Ri ght Upper Arm] Pulse Oximetry 93 98 95 Oxygen Delivery Me thod Nasal Cannula Oxygen Flow Rate 3 Fraction of Inspir ed Oxygen 11/23/22 12:30 11/23/22 12:45 11/23/22 12:55 Temperature Pulse Rate 67 65 Pulse Rate [Pulse Oximeter] Pulse Rate [Right Pulse Oximeter] 65 Respiratory Rate 33 H Blood Pressure Blood Pressure [Ri ght Arm] Blood Pressure [Ri ght Upper Arm] 148/63 H Pulse Oximetry 96 95 94 Oxygen Delivery Me thod Nasal Cannula Oxygen Flow Rate 2 Fraction of Inspir ed Oxygen 11/23/22 12:56 11/23/22 12:59 11/23/22 13:01 Temperature 98.6 F Pulse Rate 67 Pulse Rate [Pulse Oximeter] Pulse Rate [Right Pulse Oximeter] Respiratory Rate Blood Pressure 148/63 H Blood Pressure [Ri ght Arm] Blood Pressure [Ri ght Upper Arm] Pulse Oximetry 94 69 L Oxygen Delivery Me thod Oxygen Flow Rate Fraction of Inspir ed Oxygen 11/23/22 13:15 11/23/22 13:30 11/23/22 13:54 Temperature Pulse Rate 71 71 71 Pulse Rate [Pulse Oximeter] Pulse Rate [Right Pulse Oximeter] Respiratory Rate Blood Pressure Blood Pressure [Ri ght Arm] Blood Pressure [Ri ght Upper Arm] Pulse Oximetry 93 94 88 Oxygen Delivery Me thod Oxygen Flow Rate Fraction of Inspir ed Oxygen 11/23/22 14:31 11/23/22 14:32 07/21/23 14:33 Temperature Pulse Rate 76 76 Pulse Rate [Pulse Oximeter] Pulse Rate [Right Pulse Oximeter] 76 Respiratory Rate 30 H Blood Pressure 162/74 H Blood Pressure [Ri ght Arm] Blood Pressure [Ri ght Upper Arm] 162/74 H Pulse Oximetry 91 91 92 Oxygen Delivery Me thod Nasal Cannula Oxygen Flow Rate 2 Fraction of Inspir ed Oxygen 11/23/22 14:34 11/23/22 14:45 11/23/22 15:00 Temperature 98.9 F Pulse Rate 75 73 Pulse Rate [Pulse Oximeter] Pulse Rate [Right Pulse Oximeter] Respiratory Rate Blood Pressure Blood Pressure [Ri ght Arm] Blood Pressure [Ri ght Upper Arm] Pulse Oximetry 91 93 Oxygen Delivery Me thod Oxygen Flow Rate Fraction of Inspir ed Oxygen 11/23/22 15:15 11/23/22 15:30 11/23/22 15:47 Temperature Pulse Rate 71 70 75 Pulse Rate [Pulse Oximeter] Pulse Rate [Right Pulse Oximeter] Respiratory Rate Blood Pressure Blood Pressure [Ri ght Arm] Blood Pressure [Ri ght Upper Arm] Pulse Oximetry 93 94 93 Oxygen Delivery Me thod Oxygen Flow Rate Fraction of Inspir ed Oxygen 11/23/22 16:00 11/23/22 16:15 11/23/22 16:19 Temperature Pulse Rate 71 69 69 Pulse Rate [Pulse Oximeter] Pulse Rate [Right Pulse Oximeter] Respiratory Rate Blood Pressure 122/67 Blood Pressure [Ri ght Arm] Blood Pressure [Ri ght Upper Arm] Pulse Oximetry 93 94 94 Oxygen Delivery Me thod Oxygen Flow Rate Fraction of Inspir ed Oxygen 11/23/22 16:20 11/23/22 16:30 11/23/22 16:45 Temperature 97.7 F Pulse Rate 68 70 Pulse Rate [Pulse Oximeter] 72 Pulse Rate [Right Pulse Oximeter] Respiratory Rate 28 H Blood Pressure Blood Pressure [Ri ght Arm] 146/64 H Blood Pressure [Ri ght Upper Arm] Pulse Oximetry 94 95 94 Oxygen Delivery Me thod Nasal Cannula Oxygen Flow Rate 2 Fraction of Inspir ed Oxygen 11/23/22 16:45 11/23/22 19:00 11/23/22 23:00 Temperature Pulse Rate Pulse Rate [Pulse Oximeter] 72 72 Pulse Rate [Right Pulse Oximeter] Respiratory Rate 28 H 22 22 Blood Pressure Blood Pressure [Ri ght Arm] 136/75 Blood Pressure [Ri ght Upper Arm] Pulse Oximetry 94 92 Oxygen Delivery Me thod Nasal Cannula Nasal Cannula Oxygen Flow Rate 2 2 Fraction of Inspir ed Oxygen 11/23/22 23:00 11/23/22 23:00 11/24/22 03:00 Temperature 97.1 F L 97.6 F Pulse Rate Pulse Rate [Pulse Oximeter] 67 90 Pulse Rate [Right Pulse Oximeter] Respiratory Rate 22 22 22 Blood Pressure Blood Pressure [Ri ght Arm] 137/66 130/69 Blood Pressure [Ri ght Upper Arm] Pulse Oximetry 94 92 90 Oxygen Delivery Me thod Nasal Cannula Nasal Cannula Nasal Cannula Oxygen Flow Rate 2 2 Fraction of Inspir ed Oxygen 2 Labs Labs: Laboratory Results - last 24 hr 11/23/22 11/23/22 11/24/22 11:48 12:20 05:55 WBC 17.94 H 15.90 H RBC 4.34 4.43 Hgb 12.6 12.7 Hct 39.0 39.3 MCV 90 89 MCH 29 29 MCHC 32 32 RDW Coeff of [place] 15.0 14.9 Plt Count 252 226 Neut % (Auto) 90.1 H 92.1 H Lymph % (Auto) 4.5 L 5.3 L [place] % (Auto) 4.6 1.6 Eos % (Auto) 0.6 0.0 Baso % (Auto) 0.1 0.1 Neut # (Auto) 16.20 H 14.60 H Lymph # (Auto) 0.80 L 0.80 L [place] # (Auto) 0.80 0.30 Eos # (Auto) 0.10 0.00 Baso # (Auto) 0.00 0.00 Abs Immat Gran (auto) 0.00 0.10 Imm/Tot Granulo (auto) 0.1 0.9 D-Dimer Quant (PE/DVT) 3.44 H VBG pH 7.416 7.417 VBG pCO2 46 41 VBG pO2 35.3 71.6 H VBG HCO3 29 H 26 Sodium 136 136 Potassium 3.7 3.7 Chloride 100 102 Carbon Dioxide 27 25 BUN 19 14 Creatinine 0.7 0.6 Estimated Creat Clear 29.91 Estimated GFR 84 87 Glucose 181 H 150 H Lactate 1.5 Calcium 9.0 8.9 Phosphorus 3.8 Magnesium 2.0 Troponin I < 0.01 L C-Reactive Protein 3.0 H 12.6 H NT-Pro-B Natriuret Pep 623 998 Procalcitonin 0.06 0.09 TSH 0.864 SARS-CoV-2 (PCR) Negative SARS-CoV-2 Influenza Type A (PCR) Negative PCR FLU A Influenza Type B (PCR) Negative PCR FLU B RSV (PCR) Negative PCR RSV POC Troponin I 0.00 L
[2022-11-24] MEDS: ENOXAPARIN 30 MG/0.3ML INJ SUBCUT ×2 (09:14→21:33)
[2022-11-24] MEDS: LOSARTAN POTASSIUM 50 MG TABLET 100 MG PO (09:15)
[2022-11-24] MEDS: AZITHROMYCIN 250 MG TABLET 500 MG PO (09:15)
[2022-11-24] MEDS: GABAPENTIN 100 MG CAPSULE 200 MG PO (09:15)
[2022-11-24] MEDS: cefTRIAXone 1 GM in 0.9 % SODIUM CHLORIDE Mini-bag 100 ML IVPB (09:16)
[2022-11-24] MEDS: carvediloL 25 MG TABLET PO ×2 (09:16→21:34)
[2022-11-24] MEDS: ASPIRIN 81 MG TABLET EC PO (09:16)
[2022-11-24] MEDS: SODIUM CHLORIDE 0.9 % (FLUSH) 10 ML SYRINGE 5 ML IVF ×2 (10:13→21:34)
[2022-11-24] MEDS: POTASSIUM CHLORIDE 10 MEQ CAPSULE ER 20 MEQ PO (10:14)
[2022-11-24] MEDS: FUROSEMIDE 40 MG TABLET PO (10:14)
[2022-11-24] MEDS: predniSONE 20 MG TABLET PO ×2 (10:15→17:44)
[2022-11-24] MEDS: ALBUTEROL INHALER 2 PUFF IH (11:00)
--- NOTE | 2022-11-24 11:13 | RESP.RT ---
Patient sitting up in bed, resting comfortably. on Nasal Cannula 2 Lpm SaO2 93%, breathing regular/easy, 20/minute. BBS with crackles and slight inspiratory wheeze all jacinto. Left lower lobe diminished over all. Aerobika done with patient. used well, good effort, loose productive cough swallowed secretions. Patient has MDI with extension at bedside, understands use of extension. Patient receiving DuoNeb, 'On Demand Nebulizer given to patient for next treatment. Patient does Home Nebs and MDI's.
[2022-11-24] MEDS: GABAPENTIN 300 MG CAPSULE PO ×2 (14:44→21:34)
--- NOTE | 2022-11-24 18:03 | PC.NURSE ---
A&Ox3, although is forgetful so bed alarms are in place. She is such a sweet lady, and her was here for the day as well. VSS on RA. Stating consistantly at 90-93%. 1st dose of oral/IV abx started today. Up with SBA. Left lower lung upon ascultation consists of inspitory/expitory wheeze. Productive intermittent coughing spells with tenacious cream colored sputum. Level 6 soft/ bite sized diet, with mildly thick liquids per Dr Villarreal they believe she may have aspirated on some food at home. Swallow study to be completed. Q6 hr nebulizers. Good overall appetite. Only pain reported if she has a coughing spell in her L Ribs from prior injury.
[2022-11-24] MEDS: ATORVASTATIN CALCIUM 40 MG TABLET PO (21:34)
[2022-11-25] VITALS (7 sets, daily range): BP systolic 111–170; BP diastolic 60–75; PULSE 55–83; RESP 16–20; TEMP 36.6; O2SAT 91–94
[2022-11-25] MEDS: IPRAT-ALBUT 0.5-2.5 MG/3 ML NEB 1 NEB IH ×3 (04:02→17:47)
--- NOTE | 2022-11-25 06:37 | PC.NURSE ---
Shift note: Pt is on R/A, sats 89-92%, she does not c/o SOB at rest or with exertion. Pt walks to the BR with SBA, performs self-care independently. Lung sounds with scattered expiratory wheezes , productive cough which she finally able to bring up, it's thin and clear.
[2022-11-25 06:51] LABS: HCO3 VBG 26 mmol/L (21-28); PCO2 VBG 39 mmHG (40-50); PO2 VBG 62.7 mmHG (25-47)
[2022-11-25 06:53] LABS: Basophils Percent Auto 0.1 % (0.0-3.0); Hemoglobin* 11.7 gm/dL (12.0-16.0); Immature Granulocytes Pct Auto 0.3 %; Lymphocytes Percent Auto 4.6 % (20-44); Mean Corpuscular HGB Conc 33 gm/dL (32-36); Mean Corpuscular Hemoglobin 29 pg (26-34); Mean Corpuscular Volume 89 fL (80-100); Monocytes Percent Auto 3.4 % (0.0-11.0); Neutrophils Percent Auto 91.6 % (42.0-72.0); Platelet Count* 230 K/uL (140-440); RDW Coefficient of Variation % 14.9 % (11.5-15.5); Red Blood Count 4.03 m/uL (4.00-5.20); White Blood Count* 13.35 K/uL (4.50-11.00)
[2022-11-25 07:02] LABS: Slide Review Reflex No
[2022-11-25] MEDS: FUROSEMIDE 40 MG TABLET PO (08:53)
[2022-11-25] MEDS: ASPIRIN 81 MG TABLET EC PO (08:54)
[2022-11-25] MEDS: carvediloL 25 MG TABLET PO ×2 (08:54→21:12)
[2022-11-25] MEDS: predniSONE 20 MG TABLET PO ×2 (08:54→17:47)
[2022-11-25] MEDS: POTASSIUM CHLORIDE 10 MEQ CAPSULE ER 20 MEQ PO (08:54)
[2022-11-25] MEDS: cefTRIAXone 1 GM in 0.9 % SODIUM CHLORIDE Mini-bag 100 ML IVPB (08:54)
[2022-11-25] MEDS: AZITHROMYCIN 250 MG TABLET 500 MG PO (08:54)
[2022-11-25] MEDS: GABAPENTIN 100 MG CAPSULE 200 MG PO (08:55)
[2022-11-25] MEDS: ENOXAPARIN 30 MG/0.3ML INJ SUBCUT ×2 (08:55→21:12)
[2022-11-25] MEDS: SODIUM CHLORIDE 0.9 % (FLUSH) 10 ML SYRINGE 5 ML IVF ×2 (08:55→21:12)
[2022-11-25] MEDS: LOSARTAN POTASSIUM 50 MG TABLET 100 MG PO (08:55)
--- NOTE | 2022-11-25 10:36 | PM.IMPN1 ---
Progress Note: A&P Assessment and plan (1) Acute on chronic respiratory failure with hypoxemia: Problem details: - multifactorial (ARIANA pneumonia possibly 2/2 aspiration, CHF exacerbation, COPD exacerbation) - stable on RA on hospital day #2 - On Azithromycin and Rocephin (11/23) for PNA, also on aspiration precautions (eat slower, chew well, chin down, slightly thickened) - Prednisone 20 BID (11/23) - Lasix 40 oral with potassium (11/24), diuresing well - continue resp support and hygiene Status: Acute (2) Acute infective exacerbation of chronic obstructive airway disease: Problem details: - as above - oxygen to support nebs, prednisone, abx, respiratory therapy following Status: Acute (3) Pneumonia: Problem details: - concern for aspiration, speech evaluation ordered Status: Acute (4) Heart failure with preserved ejection fraction: Problem details: - echo 11/24 ( see below) - lasix trial 11/24 (40mg po with potassium supplement) - 54 kg on admission, daily weights Final Impressions: 1. Normal left ventricular size, moderately increased wall thickness, normal global systolic function, calculated EF of 59 %. 2. The mitral valve is normal, mild mitral regurgitation. 3. Mild-moderate tricuspid regurgitation. 4. Borderline increased estimated pulmonary pressures by tricuspid regurgitation velocity and right atrial pressure (32 mmHg plus RAP). Status: Acute Plan - per above - Lovenox for ppx - possibly home tomorrow following Speech evaluation - updated at bedside, questions answered Subjective Date Seen: 11/25/22 Interval history: Nora is feeling better today, continues to have a productive cough. She has no concerns for the hospitalist team. She is tolerating antibiotics. Speech therapy assessment requested for tomorrow. Exam Narrative: Exam Narrative: GEN: Alert and sitting comfortably in bed, nontoxic HEENT: EOMIs bilaterally, no scleral icterus CV: RRR, No concerning murmurs, rubs, or gallops R: Rhonchi bilaterally, L>R, no concerning wheezing Ext: wwp, no concerning edema Skin: No concerning skin lesions or rashes on exposed skin Neuro: Nonfocal Psych: Appropriate Const: Vital Signs, click to edit/add: Vital Signs - 24 hr 11/24/22 11:10 11/24/22 12:43 11/24/22 15:30 Temperature 98.0 F Pulse Rate [Pulse Oximeter] 58 L Respiratory Rate 20 16 Blood Pressure [Ri ght Arm] 104/58 L Pulse Oximetry 93 92 93 Oxygen Delivery Me thod Nasal Cannula Room Air Room Air Oxygen Flow Rate 2 11/24/22 15:30 11/24/22 19:00 11/24/22 23:00 Temperature 98.0 F 97.8 F Pulse Rate [Pulse Oximeter] 69 71 Respiratory Rate 18 20 Blood Pressure [Ri ght Arm] 148/78 H 111/60 Pulse Oximetry 91 91 90 Oxygen Delivery Me thod Room Air Room Air Room Air Oxygen Flow Rate 11/24/22 23:00 11/25/22 03:00 11/25/22 07:00 Temperature 98 F Pulse Rate [Pulse Oximeter] 83 Respiratory Rate 16 20 20 Blood Pressure [Ri ght Arm] 111/60 Pulse Oximetry 91 92 91 Oxygen Delivery Me thod Room Air Room Air Room Air Oxygen Flow Rate 11/25/22 07:00 Temperature 97.8 F Pulse Rate [Pulse Oximeter] 58 L Respiratory Rate 20 Blood Pressure [Ri ght Arm] 170/75 H Pulse Oximetry 92 Oxygen Delivery Me thod Room Air Oxygen Flow Rate Labs Labs: Laboratory Results - last 24 hr 11/25/22 05:43 WBC 13.35 H RBC 4.03 Hgb 11.7 L Hct 36.0 MCV 89 MCH 29 MCHC 33 RDW Coeff of Garrick 14.9 Plt Count 230 Neut % (Auto) 91.6 H Lymph % (Auto) 4.6 L [place] % (Auto) 3.4 Eos % (Auto) 0.0 Baso % (Auto) 0.1 Neut # (Auto) 12.20 H Lymph # (Auto) 0.60 L [place] # (Auto) 0.50 Eos # (Auto) 0.00 Baso # (Auto) 0.00 Abs Immat Gran (auto) 0.00 Imm/Tot Granulo (auto) 0.3 VBG pH 7.430 VBG pCO2 39 L VBG pO2 62.7 H VBG HCO3 26
--- NOTE | 2022-11-25 12:33 | RESP.RT ---
Patient has been using Aerobika hourly, improved breath sounds today, more air movement, less crackly, clearer. Patient voice is also stronger and clearer today.
[2022-11-25] MEDS: GABAPENTIN 300 MG CAPSULE PO ×2 (14:02→21:12)
--- NOTE | 2022-11-25 19:01 | PC.NURSE ---
Shift Note [id number]: Shift unremarkable. VS WNL and minor scattered wheeze on inspiration. Productive intermittent cough with thin clear/white sputum. She is independently spitting sputum out and utilizing aerobika. Moving throughout room independently. Hopeful to discharge home tomorrow. Ate a fish sandwich and potato wedges for supper, appears to have tolerated quite well. Pt denies any episodes of coughing or swallowing down the wrong pipe while consuming her meal.
[2022-11-25] MEDS: ATORVASTATIN CALCIUM 40 MG TABLET PO (21:12)
[2022-11-26 04:00] VITALS: BP 186/84; PULSE 74; RESP 18; O2SAT 94
[2022-11-26 04:46] LABS: Chloride* 105 mmol/L (96-114); Potassium* 3.6 mmol/L (3.6-5.1); Sodium* 137 mmol/L (135-149)
[2022-11-26 04:48] LABS: Bilirubin Total* 0.2 mg/dL (0.1-1.5); Creatinine* 0.6 mg/dL (0.5-1.5); Est. Creatinine Clearance* 29.91; Estimated Glomerular Filt Rate 87 ml/min
[2022-11-26 04:49] LABS: Alanine Aminotransferase* 31 U/L (4-35); Alkaline Phosphatase* 62 U/L (40-150); Aspartate Amino Transferase* 31 U/L (12-35); Blood Urea Nitrogen* 22 mg/dL (7-30); Carbon Dioxide* 24 mmol/L (20-32); Total Protein* 5.8 g/dL (6.0-8.3)
[2022-11-26 04:50] LABS: Calcium* 8.4 mg/dL (8.4-10.6); Glucose* 140 mg/dL (60-115)
[2022-11-26 04:52] LABS: C Reactive Protein* 7.1 mg/dL (0.5-1.0)
[2022-11-26 05:08] LABS: Procalcitonin* 0.05 ng/mL (<0.50)
--- NOTE | 2022-11-26 06:55 | PC.NURSE ---
Shift note: No SOB, productive cough with thin clear sputum, voiding, passing gas, no c/o pain
[2022-11-26 07:03] LABS: Basophils Percent Auto 0.1 % (0.0-3.0); Hematocrit 39.8 % (33.0-51.0); Hemoglobin* 12.3 gm/dL (12.0-16.0); Immature Granulocytes Pct Auto 0.3 %; Lymphocytes Percent Auto 6.2 % (20-44); Mean Corpuscular HGB Conc 31 gm/dL (32-36); Mean Corpuscular Hemoglobin 29 pg (26-34); Mean Corpuscular Volume 94 fL (80-100); Monocytes Percent Auto 3.2 % (0.0-11.0); Neutrophils Percent Auto 90.2 % (42.0-72.0); Platelet Count* 223 K/uL (140-440); RDW Coefficient of Variation % 15.5 % (11.5-15.5); Red Blood Count 4.24 m/uL (4.00-5.20); White Blood Count* 11.35 K/uL (4.50-11.00)
[2022-11-26 07:16] LABS: Slide Review Reflex No
[2022-11-26 07:19] LABS: Chloride* 106 mmol/L (96-114); Potassium* 3.4 mmol/L (3.6-5.1); Sodium* 138 mmol/L (135-149)
[2022-11-26 07:21] LABS: Carbon Dioxide* 24 mmol/L (20-32); Creatinine* 0.6 mg/dL (0.5-1.5); Est. Creatinine Clearance* 29.91; Estimated Glomerular Filt Rate 87 ml/min
[2022-11-26 07:22] LABS: Blood Urea Nitrogen* 20 mg/dL (7-30); Calcium* 8.3 mg/dL (8.4-10.6); Glucose* 113 mg/dL (60-115)
[2022-11-26 08:25] VITALS: BP 193/104; PULSE 62; RESP 18; TEMP 36.6; O2SAT 93; O2SAT 94
[2022-11-26] MEDS: POTASSIUM CHLORIDE 10 MEQ CAPSULE ER 20 MEQ PO (08:35)
[2022-11-26] MEDS: GABAPENTIN 100 MG CAPSULE 200 MG PO (08:36)
[2022-11-26] MEDS: FUROSEMIDE 40 MG TABLET PO (08:36)
[2022-11-26] MEDS: predniSONE 20 MG TABLET PO (08:36)
[2022-11-26] MEDS: carvediloL 25 MG TABLET PO (08:36)
[2022-11-26] MEDS: ASPIRIN 81 MG TABLET EC PO (08:36)
[2022-11-26] MEDS: AZITHROMYCIN 250 MG TABLET 500 MG PO (08:37)
[2022-11-26] MEDS: LOSARTAN POTASSIUM 50 MG TABLET 100 MG PO (08:37)
[2022-11-26] MEDS: SODIUM CHLORIDE 0.9 % (FLUSH) 10 ML SYRINGE 5 ML IVF (08:39)
[2022-11-26] MEDS: ENOXAPARIN 30 MG/0.3ML INJ SUBCUT (08:50)
[2022-11-26] MEDS: cefTRIAXone 1 GM in 0.9 % SODIUM CHLORIDE Mini-bag 100 ML IVPB (08:50)
--- NOTE | 2022-11-26 09:27 | NUTR.NU ---
RDN with MD consult for COPD/emphysema. RDN with nutrition screen for with 2gram sodium diet for heart failure. Patient and designated caregiver declined heart failure nutrition education at this time. Patient and designated caregiver accepting of COPD nutrition education. RDN reviewed COPD nutrition therapy and discussed eating small frequent meals per day, eating slowly, choosing foods and beverages high in nutrients and calories, choosing variety of high calorie/high protein foods, and staying hydrated. Verbal and written information as well as a sample menu provided AND NCM.? Patient verbalized understanding.? RDN's contact information was provided and patient was encouraged to contact RDN with questions. RDN notes that resident has difficulty with swallowing per chart review. [employer] to complete evaluation today prior to discharge. RDN recommends diet per P[employer] and MD. RDN will continue to follow PRN.
[2022-11-26 09:55] VITALS: BP 179/76
[2022-11-26 11:35] VITALS: BP 147/67; PULSE 86; RESP 16; TEMP 36.7; O2SAT 96
--- NOTE | 2022-11-26 12:01 | P.DS_ITS ---
DS: Providers Provider Date Seen: 11/26/22 Date of admission: 11/23/22 17:06 Primary care physician: Temi Ibarra MD Admitting Clinician: Levy Rojas MD Consults: RT, Nutrition Attending Physician on discharge: Yolanda Santos MD Date of Discharge: 11/26/22 DS: Diagnosis Discharge Diagnosis (1) Acute on chronic respiratory failure with hypoxemia: Status: Acute Problem details: - multifactorial (ARIANA pneumonia possibly 2/2 aspiration, CHF exacerbation, COPD exacerbation) - transitioned off of supplemental oxygen to RA on hospital day #2 - On Azithromycin and Rocephin (11/23) for PNA, discharged home on Omnicef and will complete course of azithromycin - Seen by speech therapy on 11/26 who did not feel that patient was at risk for aspirating - Prednisone 20 BID (11/23), will discharge home on taper - Lasix 40 oral with potassium (added 11/24), diuresed well - TTE results below (2) Acute infective exacerbation of chronic obstructive airway disease: Status: Acute Problem details: - as above - Prednisone, nebs, abx, respiratory therapy following (3) Pneumonia: Status: Acute (4) Heart failure with preserved ejection fraction: Status: Acute Problem details: - echo 11/24 ( see below): Increased pulmonary pressures were not noted on previous TTE - lasix trial 11/24 (40mg po with potassium supplement) - 54 kg on admission, daily weights Final Impressions: 1. Normal left ventricular size, moderately increased wall thickness, normal global systolic function, calculated EF of 59 %. 2. The mitral valve is normal, mild mitral regurgitation. 3. Mild-moderate tricuspid regurgitation. 4. Borderline increased estimated pulmonary pressures by tricuspid regurgitation velocity and right atrial pressure (32 mmHg plus RAP). 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 Admission imaging revealed pneumonia in addition to concerns for COPD exacerbation, possible CHF exacerbation. She was treated with azithromycin and ceftriaxone, neb treatments, steroids, Lasix. She improved significantly and was able to transition off of supplemental oxygen on hospital day 1. Blood cultures remained negative, white blood count decreased from 17 --> 11 during stay. Nora was seen by speech therapy who did not find evidence of aspiration during evaluation. She is medically appropriate to discharge home with close PCP follow-up on 11/26/22. Status at Discharge Overall status at discharge: patient is progressing back to baseline Time Spent with Patient Time attestation: Total time spent providing and/or coordinating discharge services: Time spent: Greater than 30 minutes Specific discharge activities: Medication reconciliation, updates to patient and family, care coordination Exam Narrative: Exam Narrative: GEN: Alert and oriented, nontoxic HEENT: EOMIs bilaterally, no scleral icterus CV: RRR, No concerning murmurs R: Bibasilar rhonchi, improved. Air movement adequate Ext: wwp, no concerning edema Skin: No concerning skin lesions or rashes on exposed skin Neuro: Nonfocal Psych: Appropriate Const: Vital Signs, click to edit/add: Vital Signs - 24 hr 11/25/22 12:32 11/25/22 15:00 11/25/22 15:00 Temperature Pulse Rate [Pulse Oximeter] 64 Respiratory Rate 20 18 Blood Pressure [Ri ght Arm] Pulse Oximetry 92 93 Oxygen Delivery Me thod Room Air Room Air Oxygen Flow Rate Fraction of Inspir ed Oxygen 11/25/22 15:00 11/25/22 19:00 11/25/22 23:00 Temperature 97.9 F 98 F Pulse Rate [Pulse Oximeter] 55 L 66 Respiratory Rate 20 16 Blood Pressure [Ri ght Arm] 137/60 159/74 H Pulse Oximetry 92 94 94 Oxygen Delivery Me thod Room Air Room Air Room Air Oxygen Flow Rate 2 Fraction of Inspir ed Oxygen 2 11/25/22 23:00 11/26/22 04:00 11/26/22 08:25 Temperature Pulse Rate [Pulse Oximeter] 74 62 Respiratory Rate 16 18 18 Blood Pressure [Ri ght Arm] 186/84 H Pulse Oximetry 94 Oxygen Delivery Me thod Room Air Oxygen Flow Rate Fraction of Inspir ed Oxygen 11/26/22 08:25 11/26/22 08:25 11/26/22 09:55 Temperature 98 F Pulse Rate [Pulse Oximeter] 62 Respiratory Rate 18 18 Blood Pressure [Ri ght Arm] 193/104 H 179/76 H Pulse Oximetry 93 94 Oxygen Delivery Me thod Room Air Room Air Oxygen Flow Rate 0 0 Fraction of Inspir ed Oxygen 11/26/22 11:35 Temperature 98.1 F Pulse Rate [Pulse Oximeter] 86 Respiratory Rate 16 Blood Pressure [Ri ght Arm] 147/67 H Pulse Oximetry 96 Oxygen Delivery Me thod Room Air Oxygen Flow Rate Fraction of Inspir ed Oxygen DS: Data Data Completed and Pending Completed studies during hospitalization: IMPRESSION: 1. There is no finding of acute pulmonary embolus. 2. 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 3. Background pattern of significant emphysema. Mild background of vascular congestion 4. Bilateral multifocal airspace disease, left much worse than right. The main feature is dense consolidation of the left upper lobe and lingula with volume loss. There is a small left effusion. All these findings are probably due to pneumonia. Please review the comments for details 5. Fluid within multiple bilateral bronchi primarily in a dependent distribution suggesting that the lung findings are due to significant aspiration Please note that all CT scans at this facility use dose modulation, iterative reconstruction, and/or weight-based dosing when appropriate to reduce radiation dose to as low as reasonably achievable. Dictated by Neftaly Grubbs MD @ 11/23/2022 3:14:45 PM Labs on day of discharge: Labs from last 24 hours 11/26/22 11/25/22 06:08 05:43 WBC 11.35 H RBC 4.24 Hgb 12.3 Hct 39.8 MCV 94 MCH 29 MCHC 31 L RDW Coeff of Garrick 15.5 Plt Count 223 Neut % (Auto) 90.2 H Lymph % (Auto) 6.2 L [place] % (Auto) 3.2 Eos % (Auto) 0.0 Baso % (Auto) 0.1 Neut # (Auto) 10.20 H Lymph # (Auto) 0.70 L [place] # (Auto) 0.40 Eos # (Auto) 0.00 Baso # (Auto) 0.00 Abs Immat Gran (auto) 0.00 Imm/Tot Granulo (auto) 0.3 Sodium 138 137 Potassium 3.4 L 3.6 Chloride 106 105 Carbon Dioxide 24 24 BUN 20 22 Creatinine 0.6 0.6 Estimated Creat Clear 29.91 29.91 Estimated GFR 87 87 Glucose 113 140 H Calcium 8.3 L 8.4 Total Bilirubin 0.2 AST 31 ALT 31 Alkaline Phosphatase 62 C-Reactive Protein 7.1 H Total Protein 5.8 L Albumin 3.0 L Procalcitonin 0.05 Preliminary micro results at discharge 11/23/22 13:58 Blood Culture - Preliminary Blood NO GROWTH AFTER 48 HOURS 11/23/22 13:54 Blood Culture - Preliminary Blood NO GROWTH AFTER 48 HOURS Discharge Plan Discharge Disposition: Home, Self-Care Date of Admission: 11/23/22 17:06 Primary Care Provider: Temi Ibarra Condition: Improved Anticipated Discharge Date/Time: 11/26/22 11:39 Discharge Medications: New furosemide 40 mg Tablet 40 mg PO DAILY@0800 Qty: 10 0RF potassium chloride 10 mEq Capsule, Extended Release 20 meq PO DAILYWM Qty: 30 0RF azithromycin 500 mg tablet 500 mg PO DAILY 2 Days Qty: 2 0RF Rx Instructions: 2 days left of 500mg tablets to complete full course of therapy cefdinir 300 mg capsule 300 mg PO BID 7 Days Qty: 14 0RF prednisone 10 mg tablet 10 mg PO DIRECTED Qty: 9 0RF Rx Instructions: 2 tabs with breakfast x2d, then 1 tab po Qd with breakfast x5d, then stop Continued albuterol sulfate 90 mcg/actuation HFA aerosol inhaler 2 puff INHALATION Q4H PRN losartan 100 mg tablet 100 mg PO DAILY atorvastatin 40 mg tablet 40 mg PO QHS gabapentin 100 mg capsule 200 - 300 mg PO TID Patient Comments: 200am, 300mg afternoon, 300mg qhs alendronate 70 mg tablet 70 mg PO SA@07 aspirin 81 mg capsule 81 mg PO DAILY multivitamin Tablet 1 tab PO DAILY calcium carbonate-vitamin D3 [Calcium 500 + D] 500 mg-10 mcg (400 unit) tablet 1 tab PO DAILY carvedilol 25 mg tablet 25 mg PO BID hydrochlorothiazide 12.5 mg capsule 12.5 mg PO DAILY ipratropium-albuterol 0.5 mg-3 mg(2.5 mg base)/3 mL solution for nebulization 3 ml INHALATION QID PRN Discharge Orders: Discharge Order (Routine); Ordered 11/26/22 Ordered By: Yolanda Santos Patient Education: Furosemide (By mouth), Prednisone (By mouth), Potassium Chloride (By mouth), Azithromycin (By mouth), Cefdinir (By mouth), Community Acquired Pneumonia (DC) Additional Instructions: See Dr. Ibarra as scheduled on [place]. Medication changes: 1. You have 2 antibiotics waiting for you at [facility] (start them both today: one you take for 2 days, one you take for 7 days) 2. You will be going home on a low dose diuretic with potassium (also at [facility]) 3. There is a steroid (Prednisone) at [facility] - take as directed with food. Let us know if anything worsens or changes - you need to come back to ED with any new or worsening shortness of breath. Activity Level: Activity as Tolerated and No strenuous activity Discharge Diet: Regular Follow Up Appointments: Temi Ibarra MD [Primary Care Provider] - (Patient already has appointment scheduled for Saturday, 11/30 please keep previously scheduled appointment) Forms: [employer] Info Instructions
--- NOTE | 2022-11-26 13:29 | PC.NURSE ---
Discharge note, care provided from 0700 till time of d/c home at 1315: Pt is alert and oriented, ind in room, pleasant and cooperative. BP initially elevated sys 193 then 179 then recheck further improvement of sys 147, pt asymptomatic, MD aware, no new orders. Other vitals WDL, on RA sating 96%. Pt denies pain, denies nausea. No swallowing difficulty noted this shift, ate meals and breakfast without issue this shift. Voiding without difficulty, tolerating PO fluid intake. IV removed, catheter intact. D/C instructions reviewed with pt, new medications discussed/reviewed with pt and pt's spouse. Questions answered. Pt eager to return home. Pt given WC ride out to spouse's car and pt d/c home.
== END 2022-11-26 13:15 | disposition home or self-care (01) | DRG 189 ==
LOC: ED 15:53 → MEDSURG 16:21
PROVIDERS: Family Medicine; Admitting Provider Internal Medicine; Emergency Provider Emergency Medicine Emergency Medical Services; PCP Family Medicine; Visit Provider Internal Medicine
DX: J96.21 Acute and chronic respiratory failure with hypoxia (principal); J18.9 Pneumonia, unspecified organism; I50.33 Acute on chronic diastolic (congestive) heart failure; J44.0 Chronic obstructive pulmonary disease with (acute) lower respiratory infection; J44.1 Chronic obstructive pulmonary disease with (acute) exacerbation; I11.0 Hypertensive heart disease with heart failure; I71.22 Aneurysm of the aortic arch, without rupture
CPT/HCPCS: 36415; 71045; 71260; 80048; 80053; 82803; 83605; 83735; 83880; 84100; 84145; 84443; 84484; 85025; 85379; 86140; 87040; 87631; 92610; 93005; 93306; 94640; 94664; 99284; 99285; A9270; J0456; J0696; J1650; J7512; Q9967

== ENCOUNTER 2023-02-26 18:57 | Emergency (ER) | payer MEDICARE, SELFPAY ==
[2023-02-26] VITALS (14 sets, daily range): BP systolic 88–108; BP diastolic 32–57; PULSE 64–72; RESP 14–22; TEMP 36.3; O2SAT 90–99
--- NOTE | 2023-02-26 19:44 | ED.GENADULT ---
HPI - General Adult General Chief complaint: Shortness of Breath/Dyspnea Stated complaint: Faint, lightheaded, weak Time Seen by Provider: 02/26/23 19:34 History of Present Illness HPI narrative: This 87-year-old female comes in reporting feeling of lightheadedness and generalized weakness over the past several days or more. She arrives with a blood pressure of 89/43. She does not report any fever or infection symptoms. She does have history of COPD and typically uses a nebulizer but does not report shortness of breath. Other vital signs on arrival are in normal range. She is taking 3 antihypertensive medications in rather large doses. She does not report any chest pain. She states that she wakes up in the morning and feels good after a night's sleep and then after having breakfast and taking her medications she feels tired for most of the rest of the day and just wants to sleep. Related Data Home Medications Medication Instructions Recorded Confirmed alendronate 70 mg tablet 70 mg PO SA@07 02/19/22 11/23/22 aspirin 81 mg capsule 81 mg PO DAILY 02/19/22 11/23/22 atorvastatin 40 mg tablet 40 mg PO QHS 02/19/22 11/23/22 gabapentin 100 mg capsule 200 - 300 mg PO TID 02/19/22 11/23/22 losartan 100 mg tablet 100 mg PO DAILY 02/19/22 11/23/22 multivitamin 1 tab PO DAILY 02/19/22 11/23/22 albuterol sulfate 90 mcg/actuation 2 puff inhalation Q4H PRN 11/08/22 11/23/22 aerosol inhaler calcium carbonate 500 mg-vitamin 1 tab PO DAILY 11/23/22 11/23/22 D3 10 mcg (400 unit) tablet (Calcium 500 + D) carvedilol 25 mg tablet 25 mg PO BID 11/23/22 11/23/22 hydrochlorothiazide 12.5 mg capsule 12.5 mg PO DAILY 11/23/22 11/23/22 ipratropium 0.5 mg-albuterol 3 mg 3 ml inhalation QID PRN 11/23/22 11/23/22 (2.5 mg base)/3 mL nebulization soln Previous Rx's Medication Instructions Recorded azithromycin 500 mg tablet 500 mg PO DAILY 2 days #2 tabs 11/26/22 cefdinir 300 mg capsule 300 mg PO BID 7 days #14 caps 11/26/22 furosemide 40 mg tablet 40 mg PO DAILY@0800 #10 tabs 11/26/22 potassium chloride 10 mEq 20 meq (2 x 10 mEq) PO DAILYWM #30 11/26/22 capsule,extended release caps prednisone 10 mg tablet 10 mg PO DIRECTED #9 tabs 11/26/22 Allergies Allergy/AdvReac Type Severity Reaction Status Date / Time Sulfa (Sulfonamide Allergy Mild Nausea Verified 11/23/22 14:27 Antibiotics) Penicillins Allergy Unknown Rash Verified 11/23/22 14:27 Review of Systems Status of ROS: Reports: 10 or more systems reviewed and unremarkable except as noted in History and below Narrative: Constitutional: No fevers, no weight gain or loss. Eyes: No discharge. No vision changes. HENT: No congestion, no sore throat, no ear pain. Cardiovascular: No chest pain, no palpitations. Respiratory: No shortness of breath, no wheezes, no cough. Gastrointestinal: No abdominal pain, no vomiting, no diarrhea. Genitourinary: No dysuria, no hematuria. Musculoskeletal: Normal range of motion. Skin: No rashes, no pruritis. Neurological: No sensory change, speech change. Generalized weakness and episodes of lightheadedness. Endo/Heme/Allergies: No bruising or bleeding. No polydipsia. Pysch: no suicidality, no anxiety, no insomnia. All other systems reviewed and are negative. 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 aortic arch, without rupture (ICD-10) Heart failure with preserved ejection fraction ?I50.30 - Unspecified diastolic (congestive) heart failure (ICD-10) Pneumonia ?J18.9 - Pneumonia, unspecified organism (ICD-10) History of flexible sigmoidoscopy ?Z98.890 - Other specified postprocedural states (ICD-10) Claw toe, acquired ?M20.5X9 - Other deformities of toe(s) (acquired), unspecified foot (ICD-10) Shingles ?B02.9 - Zoster without complications (ICD-10) Osteoporosis ?M81.0 - Age-related osteoporosis without current pathological fracture (ICD-10) Chronic obstructive pulmonary disease ?J44.9 - Chronic obstructive pulmonary disease, unspecified (ICD-10) Allergic rhinitis ?J30.9 - Allergic rhinitis, unspecified (ICD-10) Diverticulosis ?K57.90 - Diverticulosis of intestine, part unspecified, without perforation or abscess without bleeding (ICD-10) Acute infective exacerbation of chronic obstructive airway disease ?J44.1 - Chronic obstructive pulmonary disease with (acute) exacerbation (ICD-10) Right rotator cuff tear arthropathy ?M75.101 - Unspecified rotator cuff tear or rupture of right shoulder, not specified as traumatic (ICD-10) ?M12.811 - Other specific arthropathies, not elsewhere classified, right shoulder (ICD-10) Closed left humeral fracture ?S42.302A - Unspecified fracture of shaft of humerus, left arm, initial encounter for closed fracture (ICD-10) Hyperlipemia ?E78.5 - Hyperlipidemia, unspecified (ICD-10) Essential (primary) hypertension ?I10 - Essential (primary) hypertension (ICD-10) Diverticulitis of colon (without mention of hemorrhage) ?K57.32 - Diverticulitis of large intestine without perforation or abscess without bleeding (ICD-10) Lymphocytic colitis ?K52.832 - Lymphocytic colitis (ICD-10) Acquired claw toe of right foot ?M20.5X1 - Other deformities of toe(s) (acquired), right foot (ICD-10) Enlarged and hypertrophic nails ?Q84.5 - Enlarged and hypertrophic nails (ICD-10) Peripheral vascular disease ?I73.9 - Peripheral vascular disease, unspecified (ICD-10) Acute respiratory failure with hypoxia ?J96.01 - Acute respiratory failure with hypoxia (ICD-10) ST elevation (STEMI) myocardial infarction involving right coronary artery ?I21.11 - ST elevation (STEMI) myocardial infarction involving right coronary artery (ICD-10) Surgical History (Updated 11/23/22 @ 17:42 by Levy Rojas MD) S/P tonsillectomy and adenoidectomy ?Z90.89 - Acquired absence of other organs (ICD-10) S/P total abdominal hysterectomy ?Z90.710 - Acquired absence of both cervix and uterus (ICD-10) Status post right knee replacement ?Z96.651 - Presence of right artificial knee joint (ICD-10) Status post bunionectomy ?Z98.890 - Other specified postprocedural states (ICD-10) Status post appendectomy ?Z90.49 - Acquired absence of other specified parts of digestive tract (ICD-10) History of carpal tunnel surgery of left wrist (11/25/19) ?Z98.890 - Other specified postprocedural states (ICD-10) History of carpal tunnel surgery of right wrist (01/25/20) ?Z98.890 - Other specified postprocedural states (ICD-10) Status post right hip replacement ?Z96.641 - Presence of right artificial hip joint (ICD-10) Family History (Updated 11/23/22 @ 17:47 by Levy Rojas MD) Sister Breast cancer, Onset Age: 50 Family/Other Breast cancer Father Heart disease Social History (Updated 11/23/22 @ 17:45 by Levy Rojas MD) Narrative: . Lives with . Retired. Former smoker, 1/2 pack per day for 60 years, quit over 15 years ago. Does not drink alcoholic beverages. Does not use street or recreational drugs. Designates , Anjel Pires, as power of assistant attorney general for health should that be required. Requests DNR, DNI resuscitation. Primary care physician is Dr. Ibarra. What is your current living situation?: I presently have a place to live Problems where you live: no known problems Problems where you live details: NA In the past 12 months, utilities in danger of being shut off: no In past 12 months, lack of transportation kept you from medical appts, meetings, work, or getting things needed for daily living: no In the past 12 mos, have been you worried that your food would run out before you had money to buy more?: never true In the past 12 mos, the food you bought just didn't last and you didn't have money to buy more?: never true Smoking Status: Former smoker What tobacco products do you use: cigarettes Smoking quit date/years: <= 15 years ago Do you use any of these nicotine containing products: None Second hand tobacco smoke exposure: No How often do you have a drink containing alcohol: never AUDIT-C Alcohol total score: 0 Non-prescribed substance use: denies use Caffeine: Yes (2-3 cups coffee) How often does anyone, including family, friends and others, physically hurt you: never How often does anyone, including family, friends and others, insult or talk down to you: never How often does anyone, including family, friends and others, threaten you with harm: never How often does anyone, including family, friends and others, scream or curse at you: never service: No Exam Narrative: Exam Narrative: Constitutional: Well-developed, well-nourished, no acute distress. HEENT: Normocephalic, atraumatic. Dry mouth. Neck: Normal range of motion. Nontender. Supple. Heart: Regular. No murmurs. Normal rate. Intact distal pulses. Lungs: No chest discomfort. Bilateral expiratory wheezes. Abdomen: Normal bowel sounds. Nontender. No rebound tenderness. Genitalia: Deferred. Back: No midline tenderness. Normal range of motion. Extremities: Normal range of motion. No injury. Skin: Intact. No rash. Warm. No erythema or pallor. Neurologic: No altered sensation. No weakness. Alert and oriented. Psychiatric: No suicidality. No anxiety or depression. No insomnia. Nursing notes and vitals signs are reviewed. Const: Vital Signs, click to edit/add: Vital Signs - 24 hr 02/26/23 19:14 02/26/23 19:32 02/26/23 20:02 Temperature 97.4 F L Pulse Rate 64 65 Pulse Rate [Left P ulse Oximeter] 72 Respiratory Rate 22 18 16 Blood Pressure 99/48 L 88/49 L Blood Pressure [Ri ght Upper Arm] 89/43 L Pulse Oximetry 94 91 92 Oxygen Delivery Me thod Room Air 02/26/23 20:12 02/26/23 20:19 02/26/23 20:32 Temperature Pulse Rate 68 65 65 Pulse Rate [Left P ulse Oximeter] Respiratory Rate 16 16 16 Blood Pressure 89/50 L 96/50 L 94/51 L Blood Pressure [Ri ght Upper Arm] Pulse Oximetry 99 98 91 Oxygen Delivery Me thod 02/26/23 20:46 02/26/23 21:04 02/26/23 21:16 Temperature Pulse Rate 64 68 65 Pulse Rate [Left P ulse Oximeter] Respiratory Rate 16 16 16 Blood Pressure 106/49 L 103/46 L 100/46 L Blood Pressure [Ri ght Upper Arm] Pulse Oximetry 90 90 95 Oxygen Delivery Me thod 02/26/23 21:47 Temperature Pulse Rate 67 Pulse Rate [Left P ulse Oximeter] Respiratory Rate 16 Blood Pressure 103/51 L Blood Pressure [Ri ght Upper Arm] Pulse Oximetry 92 Oxygen Delivery Me thod Course Vital Signs Vital signs: Initial Vital Signs Temperature 97.4 F L 02/26/23 19:14 Temperature Source Temporal Artery Scan 02/26/23 19:14 Pulse Rate 72 02/26/23 19:14 Pulse Rhythm Regular 02/26/23 19:14 Respiratory Rate 22 02/26/23 19:14 Blood Pressure 89/43 L 02/26/23 19:14 Blood Pressure Mean 58 L 02/26/23 19:14 Blood Pressure Position Sitting 02/26/23 19:14 Pulse Oximetry 94 02/26/23 19:14 Oxygen Delivery Method Room Air 02/26/23 19:14 Vital Signs Temperature 97.4 F L 02/26/23 19:14 Pulse Rate 72 02/26/23 19:14 Respiratory Rate 22 02/26/23 19:14 Blood Pressure 89/43 L 02/26/23 19:14 Pulse Oximetry 94 02/26/23 19:14 Oxygen Delivery Method Room Air 02/26/23 19:14 Temperature 97.4 F L 02/26/23 19:14 Pulse Rate 67 02/26/23 21:47 Respiratory Rate 16 02/26/23 21:47 Blood Pressure 103/51 L 02/26/23 21:47 Pulse Oximetry 92 02/26/23 21:47 Oxygen Delivery Method Room Air 02/26/23 19:14 Medical Decision Making MDM Narrative Medical decision making narrative: This patient comes in with symptoms of lightheadedness and weakness. She arrives with a systolic blood pressure at 89. Other vital signs are in normal range. She is on 3 antihypertensive medicines. An IV was established and labs are acquired. She did receive 500 mL of normal saline as she has a history of fluid overload. Initial lab for complete blood count returns with elevated white blood cell count at around 17,000. Her lactate returns at 1.3 and blood cultures are obtained. Chest x-ray does show evidence of an infiltrate in the right lower lobe. The patient did receive an IV dose of Rocephin and an oral dose of Zithromax. I spoke with the hospitalist precision printing worker, Dr. Jj, who agrees to her admission. Lab Data Labs: Lab Results 02/26/23 02/26/23 02/26/23 Range/Units 20:00 20:05 20:33 WBC 17.06 H (4.50-11.00) K/uL RBC 4.50 (4.00-5.20) m/uL Hgb 13.3 (12.0-16.0) gm/dL Hct 40.5 (33.0-51.0) % MCV 90 (80-100) fL MCH 30 (26-34) pg MCHC 33 (32-36) gm/dL RDW Coeff of Garrick 15.0 (11.5-15.5) % Plt Count 183 (140-440) K/uL Neut % (Auto) 88.1 H (42.0-72.0) % Lymph % (Auto) 5.9 L (20-44) % Addison % (Auto) 5.2 (0.0-11.0) % Eos % (Auto) 0.4 (0.0-7.0) % Baso % (Auto) 0.1 (0.0-3.0) % Neut # (Auto) 15.00 H (1.7-7.0) K/uL Lymph # (Auto) 1.00 (0.90-2.90) K/uL Addison # (Auto) 0.90 (0.00-0.90) K/UL Eos # (Auto) 0.10 (0.00-0.50) K/uL Baso # (Auto) 0.00 (0.00-0.30) K/uL Abs Immat Gran (auto) 0.10 (0.00-0.30) K/uL Imm/Tot Granulo (auto) 0.3 % Sodium 135 (135-149) mmol/L Potassium 3.8 (3.6-5.1) mmol/L Chloride 104 (96-114) mmol/L Carbon Dioxide 23 (20-32) mmol/L Anion Gap 8 (7-15) mEq/L BUN 21 (7-30) mg/dL Creatinine 0.9 (0.5-1.5) mg/dL Estimated GFR 62 ml/min Glucose 120 H (60-115) mg/dL Lactate 1.3 (0.5-1.9) mmol/L Calcium 8.9 (8.4-10.6) mg/dL POC Troponin I 0.02 (0.01-0.04) ng/ml ECG Data Attestation: I personally reviewed and interpreted this ECG as follows: Interpretation: Normal sinus rhythm. Rate is 67 beats per minute. There are no ST or T-wave abnormalities. Discharge Plan Discharge Clinical Impression: Hypotension, Pneumonia Patient Disposition: Admitted As Inpatient Condition: Unchanged Prescriptions: No Action albuterol sulfate 90 mcg/actuation HFA aerosol inhaler 2 puff INHALATION Q4H PRN losartan 100 mg tablet 100 mg PO DAILY atorvastatin 40 mg tablet 40 mg PO QHS gabapentin 100 mg capsule 200 - 300 mg PO TID Patient Comments: 200am, 300mg afternoon, 300mg qhs alendronate 70 mg tablet 70 mg PO SA@07 aspirin 81 mg capsule 81 mg PO DAILY multivitamin Tablet 1 tab PO DAILY calcium carbonate-vitamin D3 [Calcium 500 + D] 500 mg-10 mcg (400 unit) tablet 1 tab PO DAILY carvedilol 25 mg tablet 25 mg PO BID hydrochlorothiazide 12.5 mg capsule 12.5 mg PO DAILY ipratropium-albuterol 0.5 mg-3 mg(2.5 mg base)/3 mL solution for nebulization 3 ml INHALATION QID PRN furosemide 40 mg Tablet 40 mg PO DAILY@0800 Qty: 10 0RF potassium chloride 10 mEq Capsule, Extended Release 20 meq PO DAILYWM Qty: 30 0RF azithromycin 500 mg tablet 500 mg PO DAILY 2 Days Qty: 2 0RF Rx Instructions: 2 days left of 500mg tablets to complete full course of therapy cefdinir 300 mg capsule 300 mg PO BID 7 Days Qty: 14 0RF prednisone 10 mg tablet 10 mg PO DIRECTED Qty: 9 0RF Rx Instructions: 2 tabs with breakfast x2d, then 1 tab po Qd with breakfast x5d, then stop Follow Up/Referrals: Temi Ibarra MD [Primary Care Provider] -
[2023-02-26 20:07] LABS: Basophils Percent Auto 0.1 % (0.0-3.0); Eosinophils Percent Auto 0.4 % (0.0-7.0); Hematocrit 40.5 % (33.0-51.0); Hemoglobin* 13.3 gm/dL (12.0-16.0); Immature Granulocytes Pct Auto 0.3 %; Lymphocytes Percent Auto 5.9 % (20-44); Mean Corpuscular HGB Conc 33 gm/dL (32-36); Mean Corpuscular Hemoglobin 30 pg (26-34); Mean Corpuscular Volume 90 fL (80-100); Monocytes Percent Auto 5.2 % (0.0-11.0); Neutrophils Percent Auto 88.1 % (42.0-72.0); Platelet Count* 183 K/uL (140-440); White Blood Count* 17.06 K/uL (4.50-11.00)
[2023-02-26 20:10] LABS: Slide Review Reflex No
[2023-02-26] MEDS: IPRAT-ALBUT 0.5-2.5 MG/3 ML NEB 1 NEB IH (20:10)
[2023-02-26] MEDS: 0.9 % SODIUM CHLORIDE 500 ML 500 ML IV ×2 (20:10→22:43)
[2023-02-26 20:15] LABS: Troponin, Point-of-Care* 0.02 ng/ml (0.01-0.04)
--- NOTE | 2023-02-26 20:19 | CRLHL7_ITS ---
For Patients: As a result of the Cures Act, medical imaging exams and procedure reports are released immediately into your electronic medical record. You may view this report before your referring provider. If you have questions, please contact your health care provider. Indication: Shortness of breath. Leukocytosis. Technique: Chest 2 views. Comparison: None. Findings/Impression: Cardiovascular and mediastinum: Heart size and vasculature are normal in caliber and appearance. Lungs and pleural spaces: Focal opacity in the right lower lobe suspicious for pneumonia. Remainder of the lungs and pleural spaces are clear. No pneumothorax. Bones and soft tissues: No significant findings. Dictated by Adolph Cardona MD @ 02/26/2023 9:41:42 PM (Electronically Signed)
[2023-02-26 20:20] LABS: Potassium* 3.8 mmol/L (3.6-5.1); Sodium* 135 mmol/L (135-149)
--- NOTE | 2023-02-26 20:20 | ED.NURSE ---
pt report given off to oncoming RN
[2023-02-26 20:21] LABS: Chloride* 104 mmol/L (96-114)
[2023-02-26 20:23] LABS: Anion Gap 8 mEq/L (7-15); Carbon Dioxide* 23 mmol/L (20-32); Creatinine* 0.9 mg/dL (0.5-1.5); Estimated Glomerular Filt Rate 62 ml/min
[2023-02-26 20:24] LABS: Blood Urea Nitrogen* 21 mg/dL (7-30); Calcium* 8.9 mg/dL (8.4-10.6); Glucose* 120 mg/dL (60-115)
[2023-02-26 20:43] LABS: Lactate* 1.3 mmol/L (0.5-1.9)
[2023-02-26 21:42] LABS: Appearance Urine Cloudy (Clear); Bilirubin Urine Negative (Negative); Blood Urine 2+ (Negative); Color Urine Yellow (Yellow); Glucose Urine Negative (Negative); Ketones Urine Negative (Negative); Leukocyte Esterase Urine Negative (Negative); Nitrite Urine Negative (Negative); Protein Urine 1+ (Negative); Urobilinogen Urine 0.2 (0.2-1.0)
[2023-02-26] MEDS: AZITHROMYCIN 250 MG TABLET 500 MG PO (22:03)
[2023-02-26] MEDS: cefTRIAXone 1 GM in 0.9 % SODIUM CHLORIDE Mini-bag 100 ML IVPB (22:04)
--- NOTE | 2023-02-26 22:10 | PC.NURSE ---
Dr Jj at bedside
[2023-02-26 22:18] LABS: Bacteria Urine Many; Squamous Epithelial Cell Urine Few (None-Few)
--- NOTE | 2023-02-26 22:33 | P.IMHP_ITS ---
Hospitalist- H&P: HPI History of Present Illness Time Seen by Provider: 22:33 Date Seen: 02/26/23 Chief complaint: Faint, lightheaded, weak Narrative: Nora Pires is a 87 year old female admitted through the emergency department with a 1 day history of feeling weak, lightheaded, cough and dyspnea. She had very mild symptoms of illness last evening when she went to bed but more prominently ill this morning. She has really had no appetite. She has been able to take her medications. She is not aware of any fever. She is to had no ill exposures. She reports prior to yesterday evening she was feeling entirely well. She was hospitalized here 3 months ago with lower lobe pneumonia suspected to be due to aspiration. She was also diagnosed with COPD at that time. In the emergency department she was initially heard to have some wheezing and received a nebulizer treatment. By the time I saw her her breathing was better, her wheezing was better. Review of Systems Narrative: Patient reports urinary frequency and urgency which is old. Patient reports no other health concerns. 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 of the aortic arch, without rupture (ICD-10) Heart failure with preserved ejection fraction ?I50.30 - Unspecified diastolic (congestive) heart failure (ICD-10) Pneumonia ?J18.9 - Pneumonia, unspecified organism (ICD-10) History of flexible sigmoidoscopy ?Z98.890 - Other specified postprocedural states (ICD-10) Claw toe, acquired ?M20.5X9 - Other deformities of toe(s) (acquired), unspecified foot (ICD-10) Shingles ?B02.9 - Zoster without complications (ICD-10) Osteoporosis ?M81.0 - Age-related osteoporosis without current pathological fracture (ICD- 10) Chronic obstructive pulmonary disease ?J44.9 - Chronic obstructive pulmonary disease, unspecified (ICD-10) Allergic rhinitis ?J30.9 - Allergic rhinitis, unspecified (ICD-10) Diverticulosis ?K57.90 - Diverticulosis of intestine, part unspecified, without perforation or abscess without bleeding (ICD-10) Acute infective exacerbation of chronic obstructive airway disease ?J44.1 - Chronic obstructive pulmonary disease with (acute) exacerbation (ICD-10) Right rotator cuff tear arthropathy ?M75.101 - Unspecified rotator cuff tear or rupture of right shoulder, not specified as traumatic (ICD-10) ?M12.811 - Other specific arthropathies, not elsewhere classified, right shoulder (ICD-10) Closed left humeral fracture ?S42.302A - Unspecified fracture of shaft of humerus, left arm, initial e ncounter for closed fracture (ICD-10) Hyperlipemia ?E78.5 - Hyperlipidemia, unspecified (ICD-10) Essential (primary) hypertension ?I10 - Essential (primary) hypertension (ICD-10) Diverticulitis of colon (without mention of hemorrhage) ?K57.32 - Diverticulitis of large intestine without perforation or abscess without bleeding (ICD-10) Lymphocytic colitis ?K52.832 - Lymphocytic colitis (ICD-10) Acquired claw toe of right foot ?M20.5X1 - Other deformities of toe(s) (acquired), right foot (ICD-10) Enlarged and hypertrophic nails ?Q84.5 - Enlarged and hypertrophic nails (ICD-10) Peripheral vascular disease ?I73.9 - Peripheral vascular disease, unspecified (ICD-10) Acute respiratory failure with hypoxia ?J96.01 - Acute respiratory failure with hypoxia (ICD-10) ST elevation (STEMI) myocardial infarction involving right coronary artery ?I21.11 - ST elevation (STEMI) myocardial infarction involving right coronary artery (ICD-10) Surgical History S/P tonsillectomy and adenoidectomy ?Z90.89 - Acquired absence of other organs (ICD-10) S/P total abdominal hysterectomy ?Z90.710 - Acquired absence of both cervix and uterus (ICD-10) Status post right knee replacement ?Z96.651 - Presence of right artificial knee joint (ICD-10) Status post bunionectomy ?Z98.890 - Other specified postprocedural states (ICD-10) Status post appendectomy ?Z90.49 - Acquired absence of other specified parts of digestive tract (ICD- 10) History of carpal tunnel surgery of left wrist (11/25/19) ?Z98.890 - Other specified postprocedural states (ICD-10) History of carpal tunnel surgery of right wrist (01/25/20) ?Z98.890 - Other specified postprocedural states (ICD-10) Status post right hip replacement ?Z96.641 - Presence of right artificial hip joint (ICD-10) Family History Sister Breast cancer, Onset Age: 50 Family/Other Breast cancer Father Heart disease Social History (Updated 02/26/23 @ 22:37 by Marcin Jj MD) Narrative: . Lives with in [place]. Ambulates independently but uses a cane when she goes outside for balance. She also has a golf cart that she used to get around. They live in a home without stairs on property owned by her son. Retired. Former smoker, 1/2 pack per day for 60 years, quit over 15 years ago. Rarely drinks alcoholic beverages. Does not use street or recreational drugs. Designates , Anjel Pires, as power of professor of criminal justice for health should that be required. Requests DNR, DNI resuscitation. Primary care physician is Dr. Ibarra. What is your current living situation?: I presently have a place to live Problems where you live: no known problems Problems where you live details: NA In the past 12 months, utilities in danger of being shut off: no In past 12 months, lack of transportation kept you from medical appts, meetings, work, or getting things needed for daily living: no In the past 12 mos, have been you worried that your food would run out before you had money to buy more?: never true In the past 12 mos, the food you bought just didn't last and you didn't have money to buy more?: never true Smoking Status: Former smoker What tobacco products do you use: cigarettes Smoking quit date/years: <= 15 years ago Do you use any of these nicotine containing products: None Second hand tobacco smoke exposure: No How often do you have a drink containing alcohol: never AUDIT-C Alcohol total score: 0 Non-prescribed substance use: denies use Caffeine: Yes (2-3 cups coffee) How often does anyone, including family, friends and others, physically hurt you : never How often does anyone, including family, friends and others, insult or talk down to you: never How often does anyone, including family, friends and others, threaten you with harm: never How often does anyone, including family, friends and others, scream or curse at you: never service: No Meds Home Medications and Allergies Home Medications Medication Instructions Recorded Confirmed Type alendronate 70 mg tablet 70 mg PO SA@07 02/19/22 02/26/23 History aspirin 81 mg capsule 81 mg PO DAILY 02/19/22 02/26/23 History atorvastatin 40 mg tablet 40 mg PO QHS 02/19/22 02/26/23 History gabapentin 100 mg capsule 200 - 300 mg PO TID 02/19/22 02/26/23 History losartan 100 mg tablet 100 mg PO DAILY 02/19/22 02/26/23 History multivitamin 1 tab PO DAILY 02/19/22 02/26/23 History albuterol sulfate 90 mcg/actuation 2 puff inhalation Q4H PRN 11/08/22 02/26/23 History aerosol inhaler calcium carbonate 500 mg-vitamin 1 tab PO DAILY 11/23/22 02/26/23 History D3 10 mcg (400 unit) tablet (Calcium 500 + D) carvedilol 25 mg tablet 25 mg PO BID 11/23/22 02/26/23 History hydrochlorothiazide 12.5 mg capsule 12.5 mg PO DAILY 11/23/22 02/26/23 History ipratropium 0.5 mg-albuterol 3 mg 3 ml inhalation QID PRN 11/23/22 02/26/23 History (2.5 mg base)/3 mL nebulization soln prednisone 10 mg tablet 5 mg PO DAILY 02/26/23 02/26/23 History Allergies Allergy/AdvReac Type Severity Reaction Status Date / Time Sulfa (Sulfonamide Allergy Mild Nausea Verified 11/23/22 14:27 Antibiotics) Penicillins Allergy Unknown Rash Verified 11/23/22 14:27 Exam Narrative: Exam Narrative: She is alert and appears in no obvious distress. She gives her own history with help from her . Eyes normal. Oropharynx normal. Neck is supple without mass or adenopathy. No jugular venous distension. Respirations with somewhat diminished breath sounds but no wheezing. A few bibasilar crackles. Cardiovascular: S1, S2, regular rate and rhythm. Abdomen: Bowel sounds active. Abdomen is soft without tenderness or mass. Lower extremities with no edema, intact, but diminished, pulses. Intact strength and sensation. Const: Vital Signs, click to edit/add: Vital Signs - 24 hr 02/26/23 19:14 02/26/23 19:32 02/26/23 20:02 Temperature 97.4 F L Pulse Rate 64 65 Pulse Rate [Left P ulse Oximeter] 72 Respiratory Rate 22 18 16 Blood Pressure 99/48 L 88/49 L Blood Pressure [Ri ght Upper Arm] 89/43 L Pulse Oximetry 94 91 92 Oxygen Delivery Me thod Room Air 02/26/23 20:12 02/26/23 20:19 02/26/23 20:32 Temperature Pulse Rate 68 65 65 Pulse Rate [Left P ulse Oximeter] Respiratory Rate 16 16 16 Blood Pressure 89/50 L 96/50 L 94/51 L Blood Pressure [Ri ght Upper Arm] Pulse Oximetry 99 98 91 Oxygen Delivery Me thod 02/26/23 20:46 02/26/23 21:04 02/26/23 21:16 Temperature Pulse Rate 64 68 65 Pulse Rate [Left P ulse Oximeter] Respiratory Rate 16 16 16 Blood Pressure 106/49 L 103/46 L 100/46 L Blood Pressure [Ri ght Upper Arm] Pulse Oximetry 90 90 95 Oxygen Delivery Me thod 02/26/23 21:47 Temperature Pulse Rate 67 Pulse Rate [Left P ulse Oximeter] Respiratory Rate 16 Blood Pressure 103/51 L Blood Pressure [Ri ght Upper Arm] Pulse Oximetry 92 Oxygen Delivery Me thod Documenting provider has reviewed patient's vital signs: yes Hospitalist - H&P: Result Labs Labs: Short CBC 02/26/23 Range/Units 20:00 WBC 17.06 H (4.50-11.00) K/uL Hgb 13.3 (12.0-16.0) gm/dL Hct 40.5 (33.0-51.0) % Plt Count 183 (140-440) K/uL BMP 02/26/23 20:00 Sodium 135 Potassium 3.8 Chloride 104 Carbon Dioxide 23 BUN 21 Creatinine 0.9 Glucose 120 H Calcium 8.9 Urine 02/26/23 Range/Units 21:35 Urine Color Yellow (Yellow) Urine Appearance Cloudy A (Clear) Urine pH 6.0 (5.0-8.5) Ur Specific Ericson 1.020 (1.000-1.030) Urine Protein 1+ A (Negative) Urine Glucose (UA) Negative (Negative) Assessment and Plan Assessment and plan (1) Hypotension: Problem comment: Hypotensive on presentation emergency department. Improved with fluids. Hold diuretics and losartan. Reduce carvedilol by half. Status: Acute (2) Pneumonia: Problem comment: Right lower lobe, suspect aspiration Status: Acute (3) Chronic inflammatory arthritis: Problem comment: As poly arthritis with positive rheumatoid factor and cyclic citrulline peptide. Radiographically has changes of osteoarthritis. On methotrexate 10 mg weekly and prednisone 5 mg daily. Mild stress dose steroids. Status: Acute Plan Patient to be admitted to the hospital for evaluation and management of pneumonia, COPD, hypotension. Unfortunately at this time there is not a hospital bed available so patient will continue to board in the emergency department. Patient indicates that she would prefer to go home. Her as well as emergency department staff are encouraging her to stay. Total time spent today is 65 minutes, 45 minutes in coordination of care and discussing with patient and and other providers ongoing evaluation management
[2023-02-26] MEDS: predniSONE 10 MG TABLET 20 MG PO (22:43)
[2023-02-26 23:00] LABS: Albumin* 3.3 g/dL (3.3-5.0)
[2023-02-26 23:03] LABS: Alkaline Phosphatase* 64 U/L (40-150); Aspartate Amino Transferase* 55 U/L (12-35); Total Protein* 6.6 g/dL (6.0-8.3)
[2023-02-26 23:04] LABS: Alanine Aminotransferase* 48 U/L (4-35)
[2023-02-26 23:14] LABS: PCR FLU A Negative PCR FLU A (Negative); PCR FLU B Negative PCR FLU B (Negative)
[2023-02-26 23:19] LABS: SARS PCR* Negative SARS-CoV-2 (Negative)
[2023-02-27] VITALS (19 sets, daily range): BP systolic 131–145; BP diastolic 55–66; PULSE 53–68; RESP 12–14; O2SAT 87–95
== END 2023-02-27 08:55 | disposition home or self-care (01) ==
PROVIDERS: Family Medicine; Emergency Provider Emergency Medicine Emergency Medical Services; PCP Family Medicine
DX: I95.9 Hypotension, unspecified (principal); J18.9 Pneumonia, unspecified organism
CPT/HCPCS: 36415; 71046; 80048; 80053; 81001; 83605; 84484; 85025; 87040; 87086; 87186; 87631; 93005; 94640; 96365; 99284; 99285; A9270; J0696; J7120; J7512

== ENCOUNTER 2023-07-20 17:32 | Inpatient (IN) | payer MEDICARE, SELFPAY ==
[2023-07-20 17:36] VITALS: BP 120/77; PULSE 72; RESP 16; TEMP 37.8; O2SAT 90
--- NOTE | 2023-07-20 17:42 | ED_ITS ---
HPI - General Adult General Time Seen by Provider: 17:42 Date Seen: 07/20/23 Chief complaint: Shortness of Breath/Dyspnea Stated complaint: cough, diff breath Time Seen by Provider: 07/20/23 17:36 Source: patient, family and RN notes reviewed Mode of arrival: wheelchair Limitations: no limitations History of Present Illness HPI narrative: Patient is an 88-year-old female coming in with coughing, shortness of breath that started on Saturday and been progressive. She is becoming increasingly weak with this, having difficulty getting around is normal. She is not been eating or drinking, believe she reported some diarrhea. No abdominal pain. She is not been having normal oral intake due to her symptoms, just does not feel like eating. No noted fevers or night sweats. She states she is up-to-date on COVID and influenza vaccinations. She does reportedly have COPD. She is not on home oxygen. She has definitely felt increasingly short of breath with this. Related Data Home Medications Medication Instructions Recorded Confirmed alendronate 70 mg tablet 70 mg PO SA@07 02/19/22 07/11/23 aspirin 81 mg capsule 81 mg PO DAILY 02/19/22 07/11/23 atorvastatin 40 mg tablet 40 mg PO QHS 02/19/22 07/11/23 gabapentin 100 mg capsule 200 - 300 mg PO TID 02/19/22 07/11/23 losartan 100 mg tablet 100 mg PO DAILY 02/19/22 07/11/23 multivitamin 1 tab PO DAILY 02/19/22 07/11/23 albuterol sulfate 90 mcg/actuation 2 puff inhalation Q4H PRN 11/08/22 07/11/23 aerosol inhaler calcium carbonate 500 mg-vitamin 1 tab PO DAILY 11/23/22 07/11/23 D3 10 mcg (400 unit) tablet (Calcium 500 + D) carvedilol 25 mg tablet 25 mg PO BID 11/23/22 07/11/23 hydrochlorothiazide 12.5 mg capsule 12.5 mg PO DAILY 11/23/22 07/11/23 ipratropium 0.5 mg-albuterol 3 mg 3 ml inhalation QID PRN 11/23/22 07/11/23 (2.5 mg base)/3 mL nebulization soln budesonide-formoterol HFA 80 inhalation 07/11/23 07/11/23 mcg-4.5 mcg/actuation aerosol inhaler (Symbicort) folic acid 1 mg tablet 1 mg PO DAILY 07/11/23 07/11/23 methotrexate sodium 2.5 mg tablet 10 mg PO 07/11/23 07/11/23 prednisone 5 mg tablet 5 mg PO DAILY 07/11/23 07/11/23 Previous Rx's Medication Instructions Recorded potassium chloride 10 mEq 20 meq (2 x 10 mEq) PO DAILYWM #30 11/26/22 capsule,extended release caps ipratropium 0.5 mg-albuterol 3 mg 3 ml inhalation QID PRN #90 mL 02/27/23 (2.5 mg base)/3 mL nebulization soln nirmatrelvir 300 mg (150 mg See Rx Instructions PO .COMPLEX 07/20/23 x2)-ritonavir 100 mg tablet,dose #30 ea pack (Paxlovid) Allergies Allergy/AdvReac Type Severity Reaction Status Date / Time Sulfa (Sulfonamide Allergy Mild Nausea Verified 07/11/23 13:13 Antibiotics) Penicillins Allergy Unknown Rash Verified 07/11/23 13:13 Review of Systems Status of ROS: Reports: 6 or more systems reviewed and unremarkable except as noted in History and below [facility] Medical History Rheumatoid arthritis ?M06.9 - Rheumatoid arthritis, unspecified (ICD-10) Chronic inflammatory arthritis ?M19.90 - Unspecified osteoarthritis, unspecified site (ICD-10) 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 of the aortic arch, without rupture (ICD-10) Heart failure with preserved ejection fraction ?I50.30 - Unspecified diastolic (congestive) heart failure (ICD-10) Pneumonia ?J18.9 - Pneumonia, unspecified organism (ICD-10) History of flexible sigmoidoscopy ?Z98.890 - Other specified postprocedural states (ICD-10) Claw toe, acquired ?M20.5X9 - Other deformities of toe(s) (acquired), unspecified foot (ICD-10) Shingles ?B02.9 - Zoster without complications (ICD-10) Osteoporosis ?M81.0 - Age-related osteoporosis without current pathological fracture (ICD- 10) Chronic obstructive pulmonary disease ?J44.9 - Chronic obstructive pulmonary disease, unspecified (ICD-10) Allergic rhinitis ?J30.9 - Allergic rhinitis, unspecified (ICD-10) Diverticulosis ?K57.90 - Diverticulosis of intestine, part unspecified, without perforation or abscess without bleeding (ICD-10) Acute infective exacerbation of chronic obstructive airway disease ?J44.1 - Chronic obstructive pulmonary disease with (acute) exacerbation (ICD-10) Right rotator cuff tear arthropathy ?M75.101 - Unspecified rotator cuff tear or rupture of right shoulder, not specified as traumatic (ICD-10) ?M12.811 - Other specific arthropathies, not elsewhere classified, right shoulder (ICD-10) Closed left humeral fracture ?S42.302A - Unspecified fracture of shaft of humerus, left arm, initial encounter for closed fracture (ICD-10) Hyperlipemia ?E78.5 - Hyperlipidemia, unspecified (ICD-10) Essential (primary) hypertension ?I10 - Essential (primary) hypertension (ICD-10) Diverticulitis of colon (without mention of hemorrhage) ?K57.32 - Diverticulitis of large intestine without perforation or abscess without bleeding (ICD-10) Lymphocytic colitis ?K52.832 - Lymphocytic colitis (ICD-10) Acquired claw toe of right foot ?M20.5X1 - Other deformities of toe(s) (acquired), right foot (ICD-10) Enlarged and hypertrophic nails ?Q84.5 - Enlarged and hypertrophic nails (ICD-10) Peripheral vascular disease ?I73.9 - Peripheral vascular disease, unspecified (ICD-10) Acute respiratory failure with hypoxia ?J96.01 - Acute respiratory failure with hypoxia (ICD-10) ST elevation (STEMI) myocardial infarction involving right coronary artery ?I21.11 - ST elevation (STEMI) myocardial infarction involving right coronary artery (ICD-10) Surgical History History of total left hip replacement (~2003) ?Z96.642 - Presence of left artificial hip joint (ICD-10) S/P tonsillectomy and adenoidectomy ?Z90.89 - Acquired absence of other organs (ICD-10) S/P total abdominal hysterectomy ?Z90.710 - Acquired absence of both cervix and uterus (ICD-10) Status post right knee replacement ?Z96.651 - Presence of right artificial knee joint (ICD-10) Status post bunionectomy ?Z98.890 - Other specified postprocedural states (ICD-10) Status post appendectomy ?Z90.49 - Acquired absence of other specified parts of digestive tract (ICD- 10) History of carpal tunnel surgery of left wrist (11/25/19) ?Z98.890 - Other specified postprocedural states (ICD-10) History of carpal tunnel surgery of right wrist (01/25/20) ?Z98.890 - Other specified postprocedural states (ICD-10) Family History Sister Breast cancer, Onset Age: 50 Family/Other Breast cancer Father Heart disease Social History Narrative: . Lives with in [place]. Ambulates independently but uses a cane when she goes outside for balance. She also has a golf cart that she used to get around. They live in a home without stairs on property owned by her son. Retired. Former smoker, 1/2 pack per day for 60 years, quit over 15 years ago. Rarely drinks alcoholic beverages. Does not use street or recreational drugs. Designates , Anjel Pires, as power of trademark attorney for health should that be required. Requests DNR, DNI resuscitation. Primary care physician is Dr. Ibarra. What is your current living situation?: I presently have a place to live Problems where you live: no known problems Problems where you live details: NA In the past 12 months, utilities in danger of being shut off: no In past 12 months, lack of transportation kept you from medical appts, meetings, work, or getting things needed for daily living: no In the past 12 mos, have been you worried that your food would run out before you had money to buy more?: never true In the past 12 mos, the food you bought just didn't last and you didn't have money to buy more?: never true Smoking Status: Former smoker What tobacco products do you use: cigarettes Smoking quit date/years: <= 15 years ago Do you use any of these nicotine containing products: None Second hand tobacco smoke exposure: No How often do you have a drink containing alcohol: never AUDIT-C Alcohol total score: 0 Non-prescribed substance use: denies use Caffeine: Yes (2-3 cups coffee) How often does anyone, including family, friends and others, physically hurt you : never How often does anyone, including family, friends and others, insult or talk down to you: never How often does anyone, including family, friends and others, threaten you with harm: never How often does anyone, including family, friends and others, scream or curse at you: never service: No Exam Const: Vital Signs, click to edit/add: Vital Signs - 24 hr 07/20/23 17:36 Temperature 100.1 F H Pulse Rate [Pulse Oximeter] 72 Respiratory Rate 16 Blood Pressure [Ri ght Upper Arm] 120/77 Pulse Oximetry 90 Oxygen Delivery Me thod Room Air This 88-year-old female is alert, interactive, conversive but doing some pursed lip breathing, lips almost seem to have a little bluish discoloration. When she was 1st moving into the bed, pulse oximeter that was on was 87-89% with a good waveform. When she settled, did go up to 90%. Face is atraumatic, sclera clear, conjugate gaze. Lungs with distant breath sounds, end-expiratory wheezing and some crackles heard throughout lung jacinto, mildly tachypneic initially. CV regular rate and rhythm, did not hear significant cardiac murmur at all. Normal S1-S2. Abdomen is soft, no rebound or guarding, no organomegaly. She has no lower extremity edema. She had to be brought back in a wheelchair, felt too weak to walk. No focal neurologic deficits noted. Skin visualized out any rash. Documenting provider has reviewed patient's vital signs: yes Course Course ED Course: This is a febrile patient with underlying COPD, other comorbid conditions. Infectious etiology with COPD exacerbation need to be considered. Will consider and follow for sepsis as well. Blood cultures were drawn. Will do full complement of labs, start with a portable chest x-ray. Due to her active wheezing on arrival, will do a DuoNeb. Will have her monitored on pulse oximetry, place an IV. Reevaluation(s) Time of Reevaluation #1: 19:30 Reevaluation #1: Have reviewed with patient and her family that she has COVID. We did discuss her EKG changes, she did have a heart attack 3 years ago and had stent placement. She states she was at they social security benefits interviewer recently and was told that everything was fine. She is not having any active chest pain but did review with her that COVID certainly can place a stress on the system. Her troponin is currently normal. She has had some intermittent hypoxia, does have significant comorbid diseases. We did discuss use of Paxlovid and she certainly should take this. Unfortunately, there are no pharmacies open, this is not something we carry. They will get this prescription tomorrow morning, will sent to the [facility] in [facility] as historically [facility] has been able to fill with a waiver. Otherwise, this medicine may run over 1000 dollars. I did review [place] COVID-19 interaction receiving checker. There is no interaction with the carvedilol, gabapentin, hydrochlorothiazide, methotrexate. Week potential with losartan. Potential interaction with atorvastatin, these class of medication should be withheld while patient is on the medication. Consultations Consultation #1: Reviewed with the hospitalist Dr. Jj. He does accept care. He understands that the Paxlovid has been sent to the local [facility] in [facility]. No other pharmacies are open at this time in town. We will initiate dexamethasone 6 mg IV. When I was in talking to the patient, she did have some brief dips of 88-89% while at rest with good waveform. She is back up to 90% when I left the room. Time: 19:33 Vital Signs Vital signs: Initial Vital Signs Temperature 100.1 F H 07/20/23 17:36 Temperature Source Temporal Artery Scan 07/20/23 17:36 Pulse Rate 72 07/20/23 17:36 Respiratory Rate 16 07/20/23 17:36 Blood Pressure 120/77 07/20/23 17:36 Blood Pressure Mean 91 07/20/23 17:36 Blood Pressure Position Sitting 07/20/23 17:36 Pulse Oximetry 90 07/20/23 17:36 Oxygen Delivery Method Room Air 07/20/23 17:36 Vital Signs Temperature 100.1 F H 07/20/23 17:36 Pulse Rate 72 07/20/23 17:36 Respiratory Rate 16 07/20/23 17:36 Blood Pressure 120/77 07/20/23 17:36 Pulse Oximetry 90 07/20/23 17:36 Oxygen Delivery Method Room Air 07/20/23 17:36 Temperature 100.1 F H 07/20/23 17:36 Pulse Rate 72 07/20/23 17:36 Respiratory Rate 16 07/20/23 17:36 Blood Pressure 120/77 07/20/23 17:36 Pulse Oximetry 90 07/20/23 17:36 Oxygen Delivery Method Room Air 07/20/23 17:36 Medications Administered Medications: Discontinued Medications Generic Name Dose Route Start Last Admin Trade Name Ivory PRN Reason Stop Dose Admin Acetaminophen 650 mg 07/20/23 17:49 07/20/23 18:29 Acetaminophen 325 Mg Tablet PO 07/20/23 17:50 650 mg ONCE ONE Administration Albuterol/Ipratropium 1 neb 07/20/23 17:46 07/20/23 18:29 Iprat-Albut 0.5-2.5 Mg/3 Ml Neb IH 07/20/23 17:47 1 neb ONCE ONE Administration Medical Decision Making Lab Data Lab results reviewed: Yes I reviewed the patient's lab results Labs: Lab Results 07/20/23 07/20/23 Range/Units 17:40 18:25 WBC 4.61 (4.50-11.00) K/uL RBC 4.46 (4.00-5.20) m/uL Hgb 14.1 (12.0-16.0) gm/dL Hct 42.9 (33.0-51.0) % MCV 96 (80-100) fL MCH 32 (26-34) pg MCHC 33 (32-36) gm/dL RDW Coeff of Garrick 15.0 (11.5-15.5) % Plt Count 124 L (140-440) K/uL Neut % (Auto) 78.8 H (42.0-72.0) % Lymph % (Auto) 13.4 L (20-44) % [place] % (Auto) 7.6 (0.0-11.0) % Eos % (Auto) 0.2 (0.0-7.0) % Baso % (Auto) 0.0 (0.0-3.0) % Neut # (Auto) 3.60 (1.7-7.0) K/uL Lymph # (Auto) 0.60 L (0.90-2.90) K/uL [place] # (Auto) 0.40 (0.00-0.90) K/UL Eos # (Auto) 0.01 (0.00-0.50) K/uL Baso # (Auto) 0.00 (0.00-0.30) K/uL Abs Immat Gran (auto) 0.00 (0.00-0.30) K/uL Imm/Tot Granulo (auto) 0.0 % VBG pH 7.403 (7.32-7.43) VBG pCO2 51 H (40-50) mmHG VBG pO2 < 30.1 (25-47) mmHG VBG HCO3 32 H (21-28) mmol/L Sodium 138 (135-149) mmol/L Potassium 3.8 (3.6-5.1) mmol/L Chloride 102 (96-114) mmol/L Carbon Dioxide 32 (20-32) mmol/L Anion Gap 4 L (7-15) mEq/L BUN 21 (7-30) mg/dL Creatinine 0.8 (0.5-1.5) mg/dL Estimated GFR 71 ml/min Glucose 122 H (60-115) mg/dL Lactate 1.0 (0.5-1.9) mmol/L Calcium 9.7 (8.4-10.6) mg/dL Total Bilirubin 0.5 (0.1-1.5) mg/dL AST 49 H (12-35) U/L ALT 29 (4-35) U/L Alkaline Phosphatase 50 (40-150) U/L Troponin I 0.02 (0.01-0.04) ng/mL C-Reactive Protein 5.9 H (0.5-1.0) mg/dL NT-Pro-B Natriuret Pep 240 pg/mL Total Protein 6.5 (6.0-8.3) g/dL Albumin 3.7 (3.3-5.0) g/dL SARS-CoV-2 (PCR) POSITIVE SARS-CoV-2 A (Negative) Influenza Type A (PCR) Negative PCR FLU A (Negative) Influenza Type B (PCR) Negative PCR FLU B (Negative) RSV (PCR) Negative PCR RSV (Negative) Imaging Data Chest x-ray: Attestation: I have reviewed the pertinent imaging results. Radiologist's impression: Patient: MARIA D PIRES Facility:?[facility] Patient ID:?[id number] Site Patient ID:?[id number]. Site :?[id number] Study:?XRay Chest 2V-07/20/2023 6:03:15 PM Ordering Physician:ADALGISA Final Report: INDICATION: Cough, fever, hypoxia TECHNIQUE: Chest 1 view. COMPARISON: None. FINDINGS: The heart is normal in size. The pulmonary vasculature is within normal limits. Subtle patchy opacity right mid lung. Fracture deformity of the proximal left humerus, likely chronic. Bones are unremarkable. IMPRESSION: Subtle patchy opacity within the right mid lung, may represent pneumonia. Dictated by Jenny Madison MD @ 07/20/2023 6:26:58 PM Dictated by: Jenny Madison MD @ 07/20/2023 18:27:32 (Electronic Signature) ECG Data Attestation: I personally reviewed and interpreted this ECG as follows: (Sinus rhythm, 67 beats per minute. Flipped T-waves inferior leads, flipped T-waves and slight downsloping ST segments V3 through V6.) Prior ECG tracings: available for review (This is progressive from 02/27/2023 EKG and new from February 2022 EKG.) Discharge Plan Discharge Clinical Impression: COVID-19, Hypoxia Chronic obstructive pulmonary disease Qualifiers: COPD type: unspecified COPD Qualified Code(s): J44.9 - Chronic obstructive pulmonary disease, unspecified Patient Disposition: Admitted As Observation
[2023-07-20 17:46] VITALS: O2SAT 90
--- NOTE | 2023-07-20 17:46 | XR_ITS ---
Patient: MARIA D PAZ Facility:?[facility] Patient ID:?[id number] Site Patient ID:?[id number]. Site :?[id number] Study:?XRay-Chest 2V-07/20/2023 6:03:15 PM Ordering Physician:ADALGISA Final Report: INDICATION: Cough, fever, hypoxia TECHNIQUE: Chest 1 view. COMPARISON: None. FINDINGS: The heart is normal in size. The pulmonary vasculature is within normal limits. Subtle patchy opacity right mid lung. Fracture deformity of the proximal left humerus, likely chronic. Bones are unremarkable. IMPRESSION: Subtle patchy opacity within the right mid lung, may represent pneumonia. Dictated by Jenny Madison MD @ 07/20/2023 6:26:58 PM Dictated by: Jenny Madison MD @ 07/20/2023 18:27:32 Signed by:?Jenny Madison MD @07/20/2023 6:27:32 PM (Electronic Signature)
[2023-07-20 18:25] LABS: PCR FLU A Negative PCR FLU A (Negative); PCR FLU B Negative PCR FLU B (Negative); PCR RSV Negative PCR RSV (Negative); SARS PCR* POSITIVE SARS-CoV-2 (Negative)
[2023-07-20 18:28] LABS: Eosinophils Absolute Auto 0.01 K/uL (0.00-0.50); Eosinophils Percent Auto 0.2 % (0.0-7.0); HCO3 VBG 32 mmol/L (21-28); Hematocrit 42.9 % (33.0-51.0); Hemoglobin* 14.1 gm/dL (12.0-16.0); Lymphocytes Percent Auto 13.4 % (20-44); Mean Corpuscular HGB Conc 33 gm/dL (32-36); Mean Corpuscular Hemoglobin 32 pg (26-34); Mean Corpuscular Volume 96 fL (80-100); Monocytes Percent Auto 7.6 % (0.0-11.0); Neutrophils Percent Auto 78.8 % (42.0-72.0); PCO2 VBG 51 mmHG (40-50); PO2 VBG < 30.1 mmHG (25-47); Platelet Count* 124 K/uL (140-440); Red Blood Count 4.46 m/uL (4.00-5.20); White Blood Count* 4.61 K/uL (4.50-11.00); pH VBG 7.403 (7.32-7.43)
[2023-07-20 18:29] LABS: Slide Review Reflex No
[2023-07-20] MEDS: IPRAT-ALBUT 0.5-2.5 MG/3 ML NEB 1 NEB IH ×2 (18:29→23:59)
[2023-07-20] MEDS: ACETAMINOPHEN 325 MG TABLET 650 MG PO (18:29)
[2023-07-20 18:45] LABS: Albumin* 3.7 g/dL (3.3-5.0); Chloride* 102 mmol/L (96-114)
[2023-07-20 18:46] LABS: Potassium* 3.8 mmol/L (3.6-5.1); Sodium* 138 mmol/L (135-149)
[2023-07-20 18:48] LABS: Bilirubin Total* 0.5 mg/dL (0.1-1.5); Creatinine* 0.8 mg/dL (0.5-1.5); Estimated Glomerular Filt Rate 71 ml/min
[2023-07-20 18:49] LABS: Alanine Aminotransferase* 29 U/L (4-35); Alkaline Phosphatase* 50 U/L (40-150); Anion Gap 4 mEq/L (7-15); Aspartate Amino Transferase* 49 U/L (12-35); Blood Urea Nitrogen* 21 mg/dL (7-30); Calcium* 9.7 mg/dL (8.4-10.6); Carbon Dioxide* 32 mmol/L (20-32); Glucose* 122 mg/dL (60-115); Total Protein* 6.5 g/dL (6.0-8.3)
[2023-07-20 18:52] LABS: C Reactive Protein* 5.9 mg/dL (0.5-1.0)
[2023-07-20 19:00] LABS: Troponin I* 0.02 ng/mL (0.01-0.04)
[2023-07-20 19:04] LABS: NT Pro B Type NatriureticPept* 240 pg/mL
[2023-07-20 19:30] VITALS: BP 100/51; PULSE 65; O2SAT 90
[2023-07-20 20:00] VITALS: BP 92/59; PULSE 66; O2SAT 90
[2023-07-20] MEDS: dexAMETHasone 10 MG/ML inj 6 MG IVP (20:09)
--- NOTE | 2023-07-20 21:10 | PM.IMHP1 ---
Hospitalist- H&P: HPI History of Present Illness Date Seen: 07/20/23 Chief complaint: cough, diff breath Narrative: Maria D Pires is a 88 year old female with coronary artery disease, COPD and rheumatoid arthritis who presents with a 3 day history of cough dyspnea weakness and now fever. Patient reports on Saturday she began feeling ill. She was exposed to her who also became ill about the same time. Last weekend she was at a birthday alliance party at a [employer] when her niece was also ill. COVID test is positive today. Patient does have a diagnosis of COPD though she does not recall this. She does use inhalers, Symbicort and albuterol. She also has severe coronary disease which has been asymptomatic. She had a STEMI in 2020 and saw her prosthetics lab technician last month for ongoing outpatient conservative management of her asymptomatic coronary disease and saw her vascular surgeon for her descending aortic penetrating ulcer which is also being managed conservatively. She thinks her shortness of breath is not much worse than her baseline. She is quite weak and has not been eating much in the last few days. She is having trouble walking because of her weakness. She is most bothered by her acute cough. Review of Systems Narrative: She reports no other recent health concerns except as noted above [facility] Medical History (Updated 07/20/23 @ 21:25 by Marcin Jj MD) Cognitive impairment ?R41.89 - Other symptoms and signs involving cognitive functions and awareness (ICD-10) Coronary artery disease ?I25.10 - Atherosclerotic heart disease of [place] coronary artery without angina pectoris (ICD-10) Rheumatoid arthritis ?M06.9 - Rheumatoid arthritis, unspecified (ICD-10) Chronic inflammatory arthritis ?M19.90 - Unspecified osteoarthritis, unspecified site (ICD-10) 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 of the aortic arch, without rupture (ICD-10) Heart failure with preserved ejection fraction ?I50.30 - Unspecified diastolic (congestive) heart failure (ICD-10) Pneumonia ?J18.9 - Pneumonia, unspecified organism (ICD-10) History of flexible sigmoidoscopy ?Z98.890 - Other specified postprocedural states (ICD-10) Claw toe, acquired ?M20.5X9 - Other deformities of toe(s) (acquired), unspecified foot (ICD-10) Shingles ?B02.9 - Zoster without complications (ICD-10) Osteoporosis ?M81.0 - Age-related osteoporosis without current pathological fracture (ICD-10) Chronic obstructive pulmonary disease ?J44.9 - Chronic obstructive pulmonary disease, unspecified (ICD-10) Allergic rhinitis ?J30.9 - Allergic rhinitis, unspecified (ICD-10) Diverticulosis ?K57.90 - Diverticulosis of intestine, part unspecified, without perforation or abscess without bleeding (ICD-10) Acute infective exacerbation of chronic obstructive airway disease ?J44.1 - Chronic obstructive pulmonary disease with (acute) exacerbation (ICD-10) Right rotator cuff tear arthropathy ?M75.101 - Unspecified rotator cuff tear or rupture of right shoulder, not specified as traumatic (ICD-10) ?M12.811 - Other specific arthropathies, not elsewhere classified, right shoulder (ICD-10) Closed left humeral fracture ?S42.302A - Unspecified fracture of shaft of humerus, left arm, initial encounter for closed fracture (ICD-10) Hyperlipemia ?E78.5 - Hyperlipidemia, unspecified (ICD-10) Essential (primary) hypertension ?I10 - Essential (primary) hypertension (ICD-10) Diverticulitis of colon (without mention of hemorrhage) ?K57.32 - Diverticulitis of large intestine without perforation or abscess without bleeding (ICD-10) Lymphocytic colitis ?K52.832 - Lymphocytic colitis (ICD-10) Acquired claw toe of right foot ?M20.5X1 - Other deformities of toe(s) (acquired), right foot (ICD-10) Enlarged and hypertrophic nails ?Q84.5 - Enlarged and hypertrophic nails (ICD-10) Peripheral vascular disease ?I73.9 - Peripheral vascular disease, unspecified (ICD-10) Acute respiratory failure with hypoxia ?J96.01 - Acute respiratory failure with hypoxia (ICD-10) ST elevation (STEMI) myocardial infarction involving right coronary artery ?I21.11 - ST elevation (STEMI) myocardial infarction involving right coronary artery (ICD-10) Surgical History History of total left hip replacement (~2003) ?Z96.642 - Presence of left artificial hip joint (ICD-10) S/P tonsillectomy and adenoidectomy ?Z90.89 - Acquired absence of other organs (ICD-10) S/P total abdominal hysterectomy ?Z90.710 - Acquired absence of both cervix and uterus (ICD-10) Status post right knee replacement ?Z96.651 - Presence of right artificial knee joint (ICD-10) Status post bunionectomy ?Z98.890 - Other specified postprocedural states (ICD-10) Status post appendectomy ?Z90.49 - Acquired absence of other specified parts of digestive tract (ICD-10) History of carpal tunnel surgery of left wrist (11/25/19) ?Z98.890 - Other specified postprocedural states (ICD-10) History of carpal tunnel surgery of right wrist (01/25/20) ?Z98.890 - Other specified postprocedural states (ICD-10) Family History Sister Breast cancer, Onset Age: 50 Family/Other Breast cancer Father Heart disease Social History Narrative: . Lives with in [place]. Ambulates independently but uses a cane when she goes outside for balance. She also has a golf cart that she used to get around. They live in a home without stairs on property owned by her son. Retired. Former smoker, 1/2 pack per day for 60 years, quit over 15 years ago. Rarely drinks alcoholic beverages. Does not use street or recreational drugs. Designates , Anjel Pires, as power of attorney law clerk for health should that be required. Requests DNR, DNI resuscitation. Primary care physician is Dr. Ibarra. What is your current living situation?: I presently have a place to live Problems where you live: no known problems Problems where you live details: NA In the past 12 months, utilities in danger of being shut off: no In past 12 months, lack of transportation kept you from medical appts, meetings, work, or getting things needed for daily living: no In the past 12 mos, have been you worried that your food would run out before you had money to buy more?: never true In the past 12 mos, the food you bought just didn't last and you didn't have money to buy more?: never true Smoking Status: Former smoker What tobacco products do you use: cigarettes Smoking quit date/years: <= 15 years ago Do you use any of these nicotine containing products: None Second hand tobacco smoke exposure: No How often do you have a drink containing alcohol: never AUDIT-C Alcohol total score: 0 Non-prescribed substance use: denies use Caffeine: Yes (2-3 cups coffee) How often does anyone, including family, friends and others, physically hurt you: never How often does anyone, including family, friends and others, insult or talk down to you: never How often does anyone, including family, friends and others, threaten you with harm: never How often does anyone, including family, friends and others, scream or curse at you: never service: No Meds Home Medications and Allergies Home Medications Medication Instructions Recorded Confirmed Type alendronate 70 mg tablet 70 mg PO SA@07 02/19/22 07/11/23 History aspirin 81 mg capsule 81 mg PO DAILY 02/19/22 07/11/23 History atorvastatin 40 mg tablet 40 mg PO QHS 02/19/22 07/11/23 History gabapentin 100 mg capsule 200 - 300 mg PO TID 02/19/22 07/11/23 History losartan 100 mg tablet 100 mg PO DAILY 02/19/22 07/11/23 History multivitamin 1 tab PO DAILY 02/19/22 07/11/23 History albuterol sulfate 90 mcg/actuation 2 puff inhalation Q4H PRN 11/08/22 07/11/23 History aerosol inhaler calcium carbonate 500 mg-vitamin 1 tab PO DAILY 11/23/22 07/11/23 History D3 10 mcg (400 unit) tablet (Calcium 500 + D) carvedilol 25 mg tablet 25 mg PO BID 11/23/22 07/11/23 History hydrochlorothiazide 12.5 mg capsule 12.5 mg PO DAILY 11/23/22 07/11/23 History ipratropium 0.5 mg-albuterol 3 mg 3 ml inhalation QID PRN 11/23/22 07/11/23 History (2.5 mg base)/3 mL nebulization soln budesonide-formoterol HFA 80 inhalation 07/11/23 07/11/23 History mcg-4.5 mcg/actuation aerosol inhaler (Symbicort) folic acid 1 mg tablet 1 mg PO DAILY 07/11/23 07/11/23 History methotrexate sodium 2.5 mg tablet 10 mg PO 07/11/23 07/11/23 History prednisone 5 mg tablet 5 mg PO DAILY 07/11/23 07/11/23 History Home Medication Comments: [facility] records indicate that she is taking potassium but patient and her are not aware of this Allergies Allergy/AdvReac Type Severity Reaction Status Date / Time Sulfa (Sulfonamide Allergy Mild Nausea Verified 07/11/23 13:13 Antibiotics) Penicillins Allergy Unknown Rash Verified 07/11/23 13:13 Exam Narrative: Exam Narrative: She is alert and appears in no distress. Eyes normal. Oropharynx with very dry mucous membranes. Otherwise normal. Neck is supple without mass or adenopathy. Respirations with diminished breath sounds throughout. No marked wheezing rales or rhonchi. No consolidation. Cardiovascular: S1, S2, regular rate and rhythm. Abdomen: Bowel sounds active. Abdomen is soft without tenderness or mass. Extremities without edema. She has intact pedal pulses. She moves all 4 extremities well. Const: Vital Signs, click to edit/add: Vital Signs - 24 hr 07/20/23 17:36 07/20/23 17:46 07/20/23 19:30 Temperature 100.1 F H Pulse Rate [Pulse Oximeter] 72 65 Respiratory Rate 16 Blood Pressure [Ri ght Upper Arm] 120/77 100/51 L Pulse Oximetry 90 90 90 Oxygen Delivery [facility] Room Air Room Air 07/20/23 20:00 Temperature Pulse Rate [Pulse Oximeter] 66 Respiratory Rate Blood Pressure [Ri ght Upper Arm] 92/59 L Pulse Oximetry 90 Oxygen Delivery [facility] Hospitalist - H&P: Result Labs Labs: Short CBC 07/20/23 Range/Units 18:25 WBC 4.61 (4.50-11.00) K/uL Hgb 14.1 (12.0-16.0) gm/dL Hct 42.9 (33.0-51.0) % Plt Count 124 L (140-440) K/uL BMP 07/20/23 18:25 Sodium 138 Potassium 3.8 Chloride 102 Carbon Dioxide 32 BUN 21 Creatinine 0.8 Glucose 122 H Calcium 9.7 Cardiac Enzymes 07/20/23 Range/Units 18:25 Troponin I 0.02 (0.01-0.04) ng/mL Liver Function 07/20/23 Range/Units 18:25 Total Bilirubin 0.5 (0.1-1.5) mg/dL AST 49 H (12-35) U/L ALT 29 (4-35) U/L Alkaline Phosphatase 50 (40-150) U/L Albumin 3.7 (3.3-5.0) g/dL ECG Attestation: I personally reviewed and interpreted this ECG as follows: (Electrocardiogram today shows more prominent ST-T changes, ST depression, in the precordial leads compared to February 2023) ECG interpretation date: 07/20/23 Prior ECG tracings: available for review (02/26/[address] T depression inferiorly and lateral precordial leads) Imaging Chest x-ray: Radiologist's impression: Patient: MARIA D PIRES Facility:?[facility] Patient ID:?[id number] Site Patient ID:?[id number]. Site :?[id number] Study:?XRay Chest 2V-07/20/2023 6:03:15 PM Ordering Physician:ADALGISA Final Report: INDICATION: Cough, fever, hypoxia TECHNIQUE: Chest 1 view. COMPARISON: None. FINDINGS: The heart is normal in size. The pulmonary vasculature is within normal limits. Subtle patchy opacity right mid lung. Fracture deformity of the proximal left humerus, likely chronic. Bones are unremarkable. IMPRESSION: Subtle patchy opacity within the right mid lung, may represent pneumonia. Assessment and Plan Assessment and plan (1) Hypoxia: Problem comment: Acute on chronic hypoxia due to COVID pneumonia and COPD. Status: Acute (2) Coronary artery disease: Problem comment: New EKG changes which are suspicious for ischemic changes comparing 07/20/2023 to 03/29/2023. Trend electrocardiogram, symptoms and troponin Status: Acute (3) COVID-19: Problem comment: First became ill about July 17 2023. Dexamethasone and, if available, antiviral medication Status: Acute (4) Chronic obstructive pulmonary disease: Problem comment: Appears to have some COPD exacerbation with wheezing in the emergency department. Nebs and low-dose prednisone Status: Acute (5) Chronic inflammatory arthritis: Problem comment: As poly arthritis with positive rheumatoid factor and cyclic citrulline peptide. Radiographically has changes of osteoarthritis. On methotrexate 10 mg weekly and prednisone 5 mg daily. Mild stress dose steroids. Status: Acute (6) Cognitive impairment: Problem comment: Patient had some difficulty with recent past medical history and medications. Obtain [place]. Status: Acute Plan Patient is admitted to the hospital for evaluation management of hypoxic respiratory failure, COVID, pneumonia, coronary artery disease with EKG changes. Total Time Spent Total Time Spent: Total time spent today is 75 minutes, 50 minutes in coordination of care discussing with patient and other providers ongoing evaluation management of hypoxia COVID COPD and heart disease
[2023-07-20 23:00] VITALS: BP 144/70; PULSE 59; PULSE 62; RESP 20; TEMP 37; O2SAT 93
[2023-07-20] MEDS: ATORVASTATIN CALCIUM 40 MG TABLET PO (23:16)
[2023-07-20] MEDS: ENOXAPARIN 30 MG/0.3ML INJ SUBCUT (23:16)
[2023-07-20] MEDS: GABAPENTIN 100 MG CAPSULE 400 MG PO (23:16)
[2023-07-20] MEDS: carvediloL 25 MG TABLET PO (23:16)
[2023-07-20] MEDS: SODIUM CHLORIDE 0.9 % (FLUSH) 10 ML SYRINGE 5 ML IVF (23:17)
[2023-07-21] VITALS (12 sets, daily range): BP systolic 116–177; BP diastolic 58–86; PULSE 54–112; RESP 16–20; TEMP 36.3–37.9; O2SAT 90–95; BMI 21.9
[2023-07-21 00:19] LABS: Appearance Urine Clear (Clear); Bilirubin Urine Negative (Negative); Blood Urine 2+ (Negative); Color Urine Yellow (Yellow); Glucose Urine Negative (Negative); Ketones Urine Negative (Negative); Leukocyte Esterase Urine Negative (Negative); Nitrite Urine Positive (Negative); Protein Urine 2+ (Negative); Urobilinogen Urine 0.2 (0.2-1.0); pH Urine 6.5 (5.0-8.5)
[2023-07-21 00:44] LABS: WBC Clumps Urine Few
[2023-07-21 00:45] LABS: Bacteria Urine Many
[2023-07-21] MEDS: IPRAT-ALBUT 0.5-2.5 MG/3 ML NEB 1 NEB IH ×2 (07:02→20:27)
[2023-07-21 07:14] LABS: Hematocrit 42.6 % (33.0-51.0); Hemoglobin* 14.1 gm/dL (12.0-16.0); Lymphocytes Percent Auto 17.8 % (20-44); Mean Corpuscular HGB Conc 33 gm/dL (32-36); Mean Corpuscular Hemoglobin 32 pg (26-34); Mean Corpuscular Volume 96 fL (80-100); Monocytes Percent Auto 2.6 % (0.0-11.0); Neutrophils Percent Auto 79.6 % (42.0-72.0); Platelet Count* 115 K/uL (140-440); RDW Coefficient of Variation % 14.9 % (11.5-15.5); Red Blood Count 4.45 m/uL (4.00-5.20)
[2023-07-21 07:20] LABS: Chloride* 104 mmol/L (96-114); Potassium* 3.4 mmol/L (3.6-5.1); Sodium* 138 mmol/L (135-149)
--- NOTE | 2023-07-21 07:21 | PC.NURSE ---
End of shift 1900 ? 0730 ? Arrived to floor from ED at approximately 2014. Pt alert, oriented x 4, cooperative and pleasant. Pt up independently in room, uses call light appropriately and is continent of bowel and bladder with reported episodes of incontinence with forceful coughing. Pt reported intermittent and productive coughing that produced thick, clear phlegm. RN instructed pt to spit sputum out instead of swallowing it. Pt had?fever of 100.3F on arrival to floor, anti-pyretic given per JUL in ED before arriving at [facility] floor. Re-testing of oral temperature produced an improved reading of 98.6F. Tolerating RA, regular diet, fluids. Pt observed to sleep during shift. Appears to be resting comfortably at end of shift. ?
[2023-07-21 07:22] LABS: Slide Review Reflex No
[2023-07-21 07:23] LABS: Creatinine* 0.7 mg/dL (0.5-1.5); Est. Creatinine Clearance* 30.76; Estimated Glomerular Filt Rate 83 ml/min
[2023-07-21 07:24] LABS: Anion Gap 6 mEq/L (7-15); Blood Urea Nitrogen* 22 mg/dL (7-30); Calcium* 9.5 mg/dL (8.4-10.6); Carbon Dioxide* 28 mmol/L (20-32); Glucose* 165 mg/dL (60-115)
[2023-07-21 07:27] LABS: C Reactive Protein* 6.8 mg/dL (0.5-1.0)
[2023-07-21 07:40] LABS: Troponin I* < 0.01 ng/mL (0.01-0.04)
[2023-07-21] MEDS: SODIUM CHLORIDE 0.9 % (FLUSH) 10 ML SYRINGE 5 ML IVF ×2 (08:13→20:23)
[2023-07-21] MEDS: MULTIVITAMIN/MINERALS 1 TABLET 1 TAB PO (08:13)
[2023-07-21] MEDS: LOSARTAN POTASSIUM 50 MG TABLET 100 MG PO (08:14)
[2023-07-21] MEDS: GABAPENTIN 100 MG CAPSULE 200 MG PO ×2 (08:14→14:27)
[2023-07-21] MEDS: ASPIRIN 81 MG TABLET EC PO (08:14)
[2023-07-21] MEDS: hydroCHLOROthiazide 12.5 MG CAPSULE PO (08:15)
[2023-07-21] MEDS: carvediloL 25 MG TABLET PO ×2 (08:15→20:21)
[2023-07-21] MEDS: FOLIC ACID 1 MG TABLET PO (08:15)
--- NOTE | 2023-07-21 09:05 | RESP.RT ---
Patient on room air, lung sounds with faint wheezing through out. Patient states she uses nebulizer 2-3 times a day at home. Using IS as instructed and walking around room. Discussion held with RN caring for patient around respiratory needs.
[2023-07-21] MEDS: dexAMETHasone 2 MG TABLET 6 MG PO (10:02)
--- NOTE | 2023-07-21 11:39 | REH.PT ---
PT Eval & treat orders received. Chart reviewed. Observed pt up self amb on RA for 6 mins throughout room, making bed and rearranging furniture to her liking. Assessed gait and transfers. Pt able to demo ind with both. Discussed use of a 2ww for energy conservation but pts is vehemently opposed. Pt able to complete 8 STS in 30 sec without UE support. Encouraged pt to keep amb in her room for exercise. Expect Pt will be safe to d/c home with spouse once cleared by . No further skilled PT warranted at this time.
--- NOTE | 2023-07-21 14:38 | PM.IMPN1 ---
Progress Note: A&P Assessment and plan (1) Hypoxia: Problem details: Acute on chronic hypoxia due to COVID pneumonia and COPD. Improving. Continue Paxilovid for COVID-19. This was just started this afternoon because of pharmacy availability. Anticipate that if she continues to do well, will be able to discharge home tomorrow. Status: Acute (2) COVID-19: Problem details: First became ill about July 17 2023. Dexamethasone and, if available, antiviral medication Status: Acute (3) Cognitive impairment: Problem details: Patient had some difficulty with recent past medical history and medications. Lester is 14. Follow-up with primary care provider as an outpatient. Recommend no driving and for her to set up an check her medications. Status: Acute (4) Coronary artery disease: Problem details: New EKG changes which are suspicious for ischemic changes comparing 07/20/2023 to 03/29/2023. Trend electrocardiogram, symptoms and troponin Status: Acute (5) Chronic obstructive pulmonary disease: Problem details: Appears to have some COPD exacerbation with wheezing in the emergency department. Nebs and low-dose prednisone Status: Acute (6) Chronic inflammatory arthritis: Problem details: As poly arthritis with positive rheumatoid factor and cyclic citrulline peptide. Radiographically has changes of osteoarthritis. On methotrexate 10 mg weekly and prednisone 5 mg daily. Mild stress dose steroids. Status: Acute (7) Hypokalemia: Status: Acute Plan 88-year-old female on chronic prednisone for COPD and chronic inflammatory arthritis who has COVID-19 viral illness with hypoxia that is already starting to improve. Since she was tachycardic this morning, I will keep her yet today, but she is improving and I anticipate she may be able to discharge home tomorrow. Replace potassium orally. Subjective Time Seen by Provider: 11:00 Date Seen: 07/21/23 Interval history: Miracle tells me she's okay. She c/o cough. She is up independently in the room. HR was high this morning, but has gone back down without intervention. Her went to metal pickling equipment operator Paxlovid. He had to wait until the pharmacy opened today at 11am. Exam Narrative: Exam Narrative: General: No acute distress. Awake, alert, oriented x3. No pallor. No jaundice. Oropharynx: Clear. Mucous membranes moist. Cardiovascular: Regular rate and rhythm. No murmurs, gallops, or rubs. Respiratory: Rhonchi in the left lung field, worse at the base, no wheezes or crackles. Extremities: No pedal edema. Const: Vital Signs, click to edit/add: Vital Signs - 24 hr 07/20/23 17:36 07/20/23 17:46 07/20/23 19:30 Temperature 100.1 F H Pulse Rate Pulse Rate [Pulse Oximeter] 72 65 Respiratory Rate 16 Blood Pressure [Ri ght Arm] Blood Pressure [Ri ght Upper Arm] 120/77 100/51 L Pulse Oximetry 90 90 90 Oxygen Delivery [facility] Room Air Room Air 07/20/23 20:00 07/20/23 23:00 07/20/23 23:00 Temperature 98.6 F Pulse Rate Pulse Rate [Pulse Oximeter] 66 59 L Respiratory Rate 20 20 Blood Pressure [Ri ght Arm] 144/70 H Blood Pressure [Ri ght Upper Arm] 92/59 L Pulse Oximetry 90 93 93 Oxygen Delivery [facility] Room Air Room Air 07/20/23 23:00 07/21/23 01:01 07/21/23 01:01 Temperature 100.3 F H Pulse Rate 62 Pulse Rate [Pulse Oximeter] 67 Respiratory Rate 20 20 Blood Pressure [Ri ght Arm] 135/58 L Blood Pressure [Ri ght Upper Arm] Pulse Oximetry 93 93 Oxygen Delivery [facility] Room Air Room Air 07/21/23 03:00 07/21/23 06:56 07/21/23 08:19 Temperature 98.2 F Pulse Rate 65 Pulse Rate [Pulse Oximeter] 54 L 63 Respiratory Rate 16 16 Blood Pressure [Ri ght Arm] 134/73 Blood Pressure [Ri ght Upper Arm] Pulse Oximetry 91 90 Oxygen Delivery [facility] Room Air Room Air 07/21/23 08:41 07/21/23 08:43 07/21/23 09:11 Temperature Pulse Rate Pulse Rate [Pulse Oximeter] 63 Respiratory Rate 16 16 Blood Pressure [Ri ght Arm] Blood Pressure [Ri ght Upper Arm] Pulse Oximetry 90 Oxygen Delivery [facility] Room Air Room Air 07/21/23 10:40 07/21/23 12:01 Temperature 98.4 F 98.0 F Pulse Rate Pulse Rate [Pulse Oximeter] 112 H 63 Respiratory Rate 16 16 Blood Pressure [Ri ght Arm] 116/79 126/66 Blood Pressure [[facility] Upper Arm] Pulse Oximetry 90 94 Oxygen Delivery [facility] Room Air Room Air Labs Labs: Laboratory Results - last 24 hr 07/20/23 07/20/23 07/21/23 17:40 18:25 00:02 WBC 4.61 RBC 4.46 Hgb 14.1 Hct 42.9 MCV 96 MCH 32 MCHC 33 RDW Coeff of [place] 15.0 Plt Count 124 L Neut % (Auto) 78.8 H Lymph % (Auto) 13.4 L [place] % (Auto) 7.6 Eos % (Auto) 0.2 Baso % (Auto) 0.0 Neut # (Auto) 3.60 Lymph # (Auto) 0.60 L [place] # (Auto) 0.40 Eos # (Auto) 0.01 Baso # (Auto) 0.00 Abs Immat Gran (auto) 0.00 Imm/Tot Granulo (auto) 0.0 VBG pH 7.403 VBG pCO2 51 H VBG pO2 < 30.1 VBG HCO3 32 H Sodium 138 Potassium 3.8 Chloride 102 Carbon Dioxide 32 Anion Gap 4 L BUN 21 Creatinine 0.8 Estimated Creat Clear Estimated GFR 71 Glucose 122 H Lactate 1.0 Calcium 9.7 Total Bilirubin 0.5 AST 49 H ALT 29 Alkaline Phosphatase 50 Troponin I 0.02 C-Reactive Protein 5.9 H NT-Pro-B Natriuret Pep 240 Total Protein 6.5 Albumin 3.7 Urine Color Yellow Urine Appearance Clear Urine pH 6.5 Ur Specific [place] 1.020 Urine Protein 2+ A Urine Glucose (UA) Negative Urine Ketones Negative Urine Blood 2+ A Urine Nitrite Positive A Urine Bilirubin Negative Urine Urobilinogen 0.2 Ur Leukocyte Esterase Negative Urine RBC 2-5 A Urine WBC 2-5 Urine WBC Clumps Few A Ur Squamous Epith Cells None Urine Bacteria Many A SARS-CoV-2 (PCR) POSITIVE SARS-CoV-2 A Influenza Type A (PCR) Negative PCR FLU A Influenza Type B (PCR) Negative PCR FLU B RSV (PCR) Negative PCR RSV 07/21/23 06:39 WBC 2.30 L RBC 4.45 Hgb 14.1 Hct 42.6 MCV 96 MCH 32 MCHC 33 RDW Coeff of [place] 14.9 Plt Count 115 L Neut % (Auto) 79.6 H Lymph % (Auto) 17.8 L [place] % (Auto) 2.6 Eos % (Auto) 0.0 Baso % (Auto) 0.0 Neut # (Auto) 1.80 Lymph # (Auto) 0.40 L [place] # (Auto) 0.10 Eos # (Auto) 0.00 Baso # (Auto) 0.00 Abs Immat Gran (auto) 0.00 Imm/Tot Granulo (auto) 0.0 VBG pH VBG pCO2 VBG pO2 VBG HCO3 Sodium 138 Potassium 3.4 L Chloride 104 Carbon Dioxide 28 Anion Gap 6 L BUN 22 Creatinine 0.7 Estimated Creat Clear 30.76 Estimated GFR 83 Glucose 165 H Lactate Calcium 9.5 Total Bilirubin AST ALT Alkaline Phosphatase Troponin I < 0.01 L C-Reactive Protein 6.8 H NT-Pro-B Natriuret Pep Total Protein Albumin Urine Color Urine Appearance Urine pH Ur Specific [place] Urine Protein Urine Glucose (UA) Urine Ketones Urine Blood Urine Nitrite Urine Bilirubin Urine Urobilinogen Ur Leukocyte Esterase Urine RBC Urine WBC Urine WBC Clumps Ur Squamous Epith Cells Urine Bacteria SARS-CoV-2 (PCR) Influenza Type A (PCR) Influenza Type B (PCR) RSV (PCR)
[2023-07-21] MEDS: predniSONE 5 MG TABLET PO (15:13)
[2023-07-21] MEDS: POTASSIUM BICARB 25 MEQ EFFERVESCENT TAB PO (15:15)
--- NOTE | 2023-07-21 19:51 | PC.NURSE ---
End of shift.? pt has been very pleasant. Pt alert, oriented x 4. Pt is up ab demarcus. she is using the call light. she has a productive cough thick, clear phlegm. she got a IS and is using it, she is up every hour in her room walking. . she is on RA sao2 above 90%. she is eating drinking and voiding. OT and PT worked with her. was here and brought marily. she takes pills with no problems.
[2023-07-21] MEDS: ATORVASTATIN CALCIUM 40 MG TABLET PO (20:21)
[2023-07-21] MEDS: GABAPENTIN 100 MG CAPSULE 400 MG PO (20:21)
[2023-07-21] MEDS: ENOXAPARIN 30 MG/0.3ML INJ SUBCUT (20:22)
[2023-07-22 03:59] VITALS: BP 170/91; PULSE 51; RESP 20; O2SAT 91
--- NOTE | 2023-07-22 06:07 | PC.NURSE ---
End of shift 1900 ? 0730 ? Pt alert, oriented x 4, cooperative and pleasant. Pt up independently in room and continent of bowel and bladder. Pt tolerating RA and maintaining saturation of 91-95%. Pt denies nausea, dizziness, and pain. Mild SOB noted during shift, pt given nebulizer per [facility] instruction with noted improvement of lung sounds. Pt observed to sleep, appears to be resting comfortably at end of shift. ?
[2023-07-22 07:00] VITALS: BP 146/99; PULSE 51; PULSE 80; RESP 22; TEMP 36.2; O2SAT 90; O2SAT 92
[2023-07-22 07:17] LABS: Chloride* 106 mmol/L (96-114); Potassium* 3.2 mmol/L (3.6-5.1); Sodium* 140 mmol/L (135-149)
[2023-07-22 07:20] LABS: Anion Gap 6 mEq/L (7-15); Blood Urea Nitrogen* 24 mg/dL (7-30); Calcium* 9.6 mg/dL (8.4-10.6); Carbon Dioxide* 28 mmol/L (20-32); Creatinine* 0.6 mg/dL (0.5-1.5); Est. Creatinine Clearance* 30.76; Estimated Glomerular Filt Rate 86 ml/min; Glucose* 128 mg/dL (60-115)
[2023-07-22] MEDS: ASPIRIN 81 MG TABLET EC PO (08:14)
[2023-07-22] MEDS: hydroCHLOROthiazide 12.5 MG CAPSULE PO (08:15)
[2023-07-22] MEDS: GABAPENTIN 100 MG CAPSULE 200 MG PO ×2 (08:15→14:03)
[2023-07-22] MEDS: LOSARTAN POTASSIUM 50 MG TABLET 100 MG PO (08:15)
[2023-07-22] MEDS: carvediloL 25 MG TABLET PO (08:15)
[2023-07-22] MEDS: FOLIC ACID 1 MG TABLET PO (08:15)
[2023-07-22] MEDS: MULTIVITAMIN/MINERALS 1 TABLET 1 TAB PO (08:16)
[2023-07-22] MEDS: SODIUM CHLORIDE 0.9 % (FLUSH) 10 ML SYRINGE 5 ML IVF (08:22)
[2023-07-22 11:00] VITALS: BP 140/120; PULSE 60; RESP 16; TEMP 36.8; O2SAT 90
[2023-07-22 12:00] VITALS: BP 116/78
[2023-07-22] MEDS: POTASSIUM CHLORIDE 10 MEQ CAPSULE ER 20 MEQ PO ×3 (12:00→14:04)
[2023-07-22 12:38] LABS: Magnesium* 1.8 mg/dL (1.5-2.6)
--- NOTE | 2023-07-22 12:44 | PM.DS1 ---
DS: Providers Provider Date Seen: 07/22/23 Date of admission: 07/20/23 20:15 Primary care physician: Temi Ibarra MD Admitting Clinician: Marcin Jj MD Attending Physician on discharge: Marcin Jj MD Date of Discharge: 07/22/23 DS: Diagnosis Discharge Diagnosis (1) COVID-19: Status: Acute Problem details: First became ill about July 17 2023. With dexamethasone and Paxlovid. (2) Chronic obstructive pulmonary disease: Status: Acute Problem details: Appears to have some COPD exacerbation with wheezing in the emergency department. Treated with nebulizers and dexamethasone (3) Hypoxia: Status: Acute Problem details: Acute on chronic hypoxia due to COVID pneumonia and COPD. Improving. Hypoxia resolved during hospital stay (4) Cognitive impairment: Status: Acute Problem details: Patient had some difficulty with recent past medical history and medications. [place] is 14. Follow-up with primary care provider as an outpatient. Recommend no driving and for her to set up an check her medications. (5) Hypokalemia: Status: Acute Problem details: [facility] records indicate patient was taking potassium but she and her both reported no potassium prescription. Potassium low in the hospital so oral potassium restarted. Recheck next week. (6) Pancytopenia: Status: Acute Problem details: Patient has low platelets, 115, low neutrophil count, 1.8, and low lymphocyte count, 0.4. Normal hemoglobin at 14. Suspected to be due to COVID. DS: Summary Hospital Course Hospital Course: Nora Pires is a 88 year old female with coronary artery disease, COPD and rheumatoid arthritis who presents with a 3 day history of cough dyspnea weakness and now fever. Patient reports on Saturday she began feeling ill. She was exposed to her who also became ill about the same time. Last weekend she was at a birthday libertarian at a [employer] alley when her niece was also ill. COVID test is positive today. Patient does have a diagnosis of COPD though she does not recall this. She does use inhalers, Symbicort and albuterol. She also has severe coronary disease which has been asymptomatic. She had a STEMI in 2020 and saw her newspaper subscription solicitor last month for ongoing outpatient conservative management of her asymptomatic coronary disease and saw her vascular surgeon for her descending aortic penetrating ulcer which is also being managed conservatively. She thinks her shortness of breath is not much worse than her baseline. She is quite weak and has not been eating much in the last few days. She is having trouble walking because of her weakness. She is most bothered by her acute cough. During hospital stay she was treated with oxygen, dexamethasone, Paxlovid, nebulizers. She had continuous improvement in her symptoms. She no longer needs oxygen. She is eating better. She feels stronger. Her fever has resolved. She is anxious to go home Status at Discharge Overall status at discharge: patient is progressing back to baseline Time Spent with Patient Time attestation: Total time spent providing and/or coordinating discharge services: Exam Narrative: Exam Narrative: She is alert and appears in no distress. Respirations are clear to auscultation. She has diffusely decreased breath sounds. Cardiovascular: S1, S2, regular rate and rhythm. Abdomen: Bowel sounds active. Abdomen is soft without tenderness or mass. Extremities without edema. Const: Vital Signs, click to edit/add: Vital Signs - 24 hr 07/21/23 15:00 07/21/23 15:00 07/21/23 15:00 Temperature 97.6 F Pulse Rate Pulse Rate [Pulse Oximeter] 66 66 Respiratory Rate 18 18 18 Blood Pressure [Ri ght Arm] 141/72 H Pulse Oximetry 95 95 [facility] Room Air 07/21/23 16:56 07/21/23 19:00 07/21/23 23:00 Temperature 97.4 F L 97.8 F Pulse Rate 62 Pulse Rate [Pulse Oximeter] 67 60 Respiratory Rate 20 20 Blood Pressure [Ri ght Arm] 168/86 H 177/83 H Pulse Oximetry 93 93 Oxygen Delivery [facility] Room Air Room Air 07/21/23 23:00 07/21/23 23:00 07/22/23 03:59 Temperature Pulse Rate 61 Pulse Rate [Pulse Oximeter] 51 L Respiratory Rate 20 20 Blood Pressure [Ri ght Arm] 170/91 H Pulse Oximetry 93 91 Oxygen Delivery [facility] Room Air Room Air 07/22/23 07:00 07/22/23 07:00 07/22/23 07:00 Temperature 97.1 F L Pulse Rate 51 L Pulse Rate [Pulse Oximeter] 80 Respiratory Rate 22 Blood Pressure [Ri ght Arm] 146/99 H Pulse Oximetry 92 90 Oxygen Delivery [facility] Room Air Room Air 07/22/23 11:00 Temperature 98.2 F Pulse Rate Pulse Rate [Pulse Oximeter] 60 Respiratory Rate 16 Blood Pressure [Ri ght Arm] 140/120 H Pulse Oximetry 90 Oxygen Delivery [facility] Room Air Documenting provider has reviewed patient's vital signs: yes DS: Data Data Completed and Pending Completed studies during hospitalization: Procedures Introduction of Other Gas into Respiratory Tract, Via Natural or Artificial Opening (11/23/22) Labs on day of discharge: Labs from last 24 hours 07/22/23 07/22/23 12:21 06:43 Sodium 140 Potassium 3.2 L Chloride 106 Carbon Dioxide 28 Anion Gap 6 L BUN 24 Creatinine 0.6 Estimated Creat Clear 30.76 Estimated GFR 86 Glucose 128 H Calcium 9.6 Magnesium 1.8 Lab Acknowledgement Test Added Preliminary micro results at discharge 07/20/23 18:34 Blood Culture - Preliminary Blood NO GROWTH AFTER 24 HOURS 07/20/23 18:25 Blood Culture - Preliminary Blood NO GROWTH AFTER 24 HOURS Discharge Plan Discharge Disposition: Home, Self-Care Date of Admission: 07/20/23 20:15 Attending Provider on Discharge: Marcin Jj Primary Care Provider: Temi Ibarra Condition: Improved Anticipated Discharge Date/Time: 07/22/23 12:39 Discharge Medications: New Paxlovid 300 mg (150 mg x 2)-100 mg tablets,dose pack See Rx Instructions .ROUTE .COMPLEX Qty: 30 0RF Rx Instructions: take TWO 150 mg tablets of nirmatrelvir with ONE 100 mg tablet of ritonavir twice daily for 5 days potassium chloride 10 mEq tablet extended release 20 meq PO DAILY Qty: 60 0RF Continued budesonide-formoterol [Symbicort] 80-4.5 mcg/actuation HFA aerosol inhaler 2 puff inhalation BID methotrexate sodium 2.5 mg tablet 10 mg PO .SATURDAY folic acid 1 mg tablet 1 mg PO DAILY prednisone 5 mg tablet 5 mg PO DAILY albuterol sulfate 90 mcg/actuation HFA aerosol inhaler 2 puff INHALATION Q4H PRN losartan 100 mg tablet 100 mg PO DAILY atorvastatin 40 mg tablet 40 mg PO QHS gabapentin 100 mg capsule 200 - 400 mg PO TID Patient Comments: 200am, 200mg afternoon, 400mg qhs alendronate 70 mg tablet 70 mg PO SA@07 aspirin 81 mg capsule 81 mg PO DAILY calcium carbonate-vitamin D3 [Calcium 500 + D] 500 mg-10 mcg (400 unit) tablet 1 tab PO DAILY carvedilol 25 mg tablet 25 mg PO BID hydrochlorothiazide 12.5 mg capsule 12.5 mg PO DAILY ipratropium-albuterol 0.5 mg-3 mg(2.5 mg base)/3 mL solution for nebulization 3 ml inhalation QID PRNQty: 90 0RF Discharge Orders: Discharge Order (Routine); Ordered 07/22/23 Ordered By: Marcin Jj Activity Level: Activity as Tolerated Follow Up Appointments: Temi Ibarra MD [Primary Care Provider] - (follow up next week. Check potassium and CBC next week.) Forms: [employer] Info Instructions
[2023-07-22] MEDS: predniSONE 5 MG TABLET PO (14:03)
--- NOTE | 2023-07-22 14:50 | PC.NURSE ---
Discharge Note: The patient discharged home with here . L AC IV was removed. The patient has a intermittent productive cough... Educated the patient on use of albuterol only if absolutely needed for wheezing and increased SOB. The patient's O2 status has remained stable and oxygen has not been required to maintain >90%. All discharge instructions were given and reviewed thoroughly with the patient. Moriah DAIGLE BSN
== END 2023-07-22 14:20 | disposition home or self-care (01) | DRG 177 ==
LOC: ED 19:51 → MEDSURG 20:15
PROVIDERS: Family Medicine; Admitting Provider Family Medicine; Emergency Provider Family Medicine; PCP Family Medicine; Visit Provider Family Medicine
DX: U07.1 COVID-19 (principal); J12.82 Pneumonia due to coronavirus disease 2019; J96.21 Acute and chronic respiratory failure with hypoxia; J44.1 Chronic obstructive pulmonary disease with (acute) exacerbation; D61.818 Other pancytopenia; J44.0 Chronic obstructive pulmonary disease with (acute) lower respiratory infection; J44.9 Chronic obstructive pulmonary disease, unspecified; M15.9 Polyosteoarthritis, unspecified; E87.6 Hypokalemia; I25.10 Atherosclerotic heart disease of native coronary artery without angina pectoris; R41.89 Other symptoms and signs involving cognitive functions and awareness; Z87.891 Personal history of nicotine dependence
CPT/HCPCS: 36415; 71045; 72148; 80048; 80053; 81001; 81003; 82803; 83605; 83735; 83880; 84484; 85025; 86140; 87040; 87086; 87186; 87631; 93005; 94640; 94761; 97165; 99284; 99285; A9153; A9270; J1100; J1650; J7512

== ENCOUNTER 2023-08-13 09:18 | Outpatient (CLI) | payer MEDICARE, SELFPAY | END 2023-08-13 09:19 | disposition home or self-care (01) | LOC: INJ CL 09:19 | PROVIDERS: PCP Family Medicine; Visit Provider Family Medicine | DX: M54.16 Radiculopathy, lumbar region (principal); M51.36 Other intervertebral disc degeneration, lumbar region | CPT/HCPCS: 64483; J1100; Q9966 ==

== ENCOUNTER 2023-09-21 19:21 | Emergency (ER) | payer MEDICARE, SELFPAY ==
[2023-09-21 19:27] VITALS: BP 156/94; PULSE 62; RESP 18; TEMP 37.2; O2SAT 95; BMI 21.9
--- NOTE | 2023-09-21 19:42 | ED_ITS ---
HPI - General Adult General Chief complaint: Fall/Minor Trauma Stated complaint: Fell this AM, right arm injury Time Seen by Provider: 09/21/23 19:42 History of Present Illness HPI narrative: Pt getting up from bed this am, fell and thinks hit R side face hit bedpost and then fell to carpeted floor. Fall was witnessed by , no LOC . Presents with bruising to R side face, skin tear to R elbow, bruising to R wrist/forearm, and L bruising and swelling to L thumb. On baby asa daily. 88-year-old woman presenting to the emergency department for assessment following a fall. Evidently while getting up this morning fell striking the right side of her face on the bedpost and then to the floor. There was not a loss of consciousness. Has injured her right elbow and most distressing perhaps is some swelling and pain around the left thumb. No complaint of new neck or back pain. No shortness of breath. No chest pain. No abdominal pain. This was not related to any sense of palpitations. Does usually need a cane for balance. Related Data Home Medications ?Medication ?Instructions ?Recorded ?Confirmed alendronate 70 mg tablet 70 mg PO SA@07 02/19/22 10/10/23 aspirin 81 mg capsule 81 mg PO DAILY 02/19/22 10/10/23 atorvastatin 40 mg tablet 40 mg PO QHS 02/19/22 10/10/23 gabapentin 100 mg capsule 200 - 400 mg PO TID 02/19/22 10/10/23 losartan 100 mg tablet 100 mg PO DAILY 02/19/22 10/10/23 albuterol sulfate 90 mcg/actuation 2 puff inhalation Q4H PRN 11/08/22 10/10/23 aerosol inhaler calcium carbonate 500 mg-vitamin 1 tab PO DAILY 11/23/22 10/10/23 D3 10 mcg (400 unit) tablet (Calcium 500 + D) carvedilol 25 mg tablet 25 mg PO BID 11/23/22 10/10/23 hydrochlorothiazide 12.5 mg capsule 12.5 mg PO DAILY 11/23/22 10/10/23 budesonide-formoterol HFA 80 2 puff inhalation BID 07/11/23 10/10/23 mcg-4.5 mcg/actuation aerosol inhaler (Symbicort) folic acid 1 mg tablet 1 mg PO DAILY 07/11/23 10/10/23 methotrexate sodium 2.5 mg tablet 10 mg PO .Saturday07/11/23 10/10/23 prednisone 5 mg tablet 2.5 mg PO DAILY Rheumatoid 08/01/23 10/10/23 arthritis Previous Rx's ?Medication ?Instructions ?Recorded ipratropium 0.5 mg-albuterol 3 mg 3 ml inhalation QID PRN #90 mL 02/27/23 (2.5 mg base)/3 mL nebulization soln potassium chloride 10 mEq 20 meq (2 x 10 mEq) PO DAILY #60 07/22/23 tablet,extended release tabs Allergies Allergy/AdvReac Type Severity Reaction Status Date / Time Sulfa (Sulfonamide Allergy Mild Nausea Verified 10/10/23 09:51 Antibiotics) Penicillins Allergy Unknown Rash Verified 10/10/23 09:51 Review of Systems Status of ROS: Reports: 6 or more systems reviewed and unremarkable except as noted in History and below [facility] Medical History ST elevation myocardial infarction (STEMI) ?I21.3 - ST elevation (STEMI) myocardial infarction of unspecified site (ICD- 10) Pneumonia ?J18.9 - Pneumonia, unspecified organism (ICD-10) Gastroenteritis ?K52.9 - Noninfective gastroenteritis and colitis, unspecified (ICD-10) Fracture of multiple ribs ?S22.49XA - Multiple fractures of ribs, unspecified side, initial encounter for closed fracture (ICD-10) Encounter for pre-operative examination ?Z01.818 - Encounter for other preprocedural examination (ICD-10) Contusion of right lung ?S27.321A - Contusion of lung, unilateral, initial encounter (ICD-10) Benign paroxysmal positional vertigo ?H81.10 - Benign paroxysmal vertigo, unspecified ear (ICD-10) Cognitive impairment ?R41.89 - Other symptoms and signs involving cognitive functions and awareness (ICD-10) Coronary artery disease ?I25.10 - Atherosclerotic heart disease of red devil coronary artery without angina pectoris (ICD-10) Rheumatoid arthritis ?M06.9 - Rheumatoid arthritis, unspecified (ICD-10) Chronic inflammatory arthritis ?M19.90 - Unspecified osteoarthritis, unspecified site (ICD-10) 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 of the aortic arch, without rupture (ICD-10) Heart failure with preserved ejection fraction ?I50.30 - Unspecified diastolic (congestive) heart failure (ICD-10) Pneumonia ?J18.9 - Pneumonia, unspecified organism (ICD-10) History of flexible sigmoidoscopy ?Z98.890 - Other specified postprocedural states (ICD-10) Claw toe, acquired ?M20.5X9 - Other deformities of toe(s) (acquired), unspecified foot (ICD-10) Shingles ?B02.9 - Zoster without complications (ICD-10) Osteoporosis ?M81.0 - Age-related osteoporosis without current pathological fracture (ICD- 10) Chronic obstructive pulmonary disease ?J44.9 - Chronic obstructive pulmonary disease, unspecified (ICD-10) Allergic rhinitis ?J30.9 - Allergic rhinitis, unspecified (ICD-10) Diverticulosis ?K57.90 - Diverticulosis of intestine, part unspecified, without perforation or abscess without bleeding (ICD-10) Acute infective exacerbation of chronic obstructive airway disease ?J44.1 - Chronic obstructive pulmonary disease with (acute) exacerbation (ICD-10) Right rotator cuff tear arthropathy ?M75.101 - Unspecified rotator cuff tear or rupture of right shoulder, not specified as traumatic (ICD-10) ?M12.811 - Other specific arthropathies, not elsewhere classified, right shoulder (ICD-10) Closed left humeral fracture ?S42.302A - Unspecified fracture of shaft of humerus, left arm, initial encounter for closed fracture (ICD-10) Hyperlipemia ?E78.5 - Hyperlipidemia, unspecified (ICD-10) Essential (primary) hypertension ?I10 - Essential (primary) hypertension (ICD-10) Diverticulitis of colon (without mention of hemorrhage) ?K57.32 - Diverticulitis of large intestine without perforation or abscess without bleeding (ICD-10) Lymphocytic colitis ?K52.832 - Lymphocytic colitis (ICD-10) Acquired claw toe of right foot ?M20.5X1 - Other deformities of toe(s) (acquired), right foot (ICD-10) Enlarged and hypertrophic nails ?Q84.5 - Enlarged and hypertrophic nails (ICD-10) Peripheral vascular disease ?I73.9 - Peripheral vascular disease, unspecified (ICD-10) Acute respiratory failure with hypoxia ?J96.01 - Acute respiratory failure with hypoxia (ICD-10) ST elevation (STEMI) myocardial infarction involving right coronary artery ?I21.11 - ST elevation (STEMI) myocardial infarction involving right coronary artery (ICD-10) Surgical History History of total left hip replacement (~2003) ?Z96.642 - Presence of left artificial hip joint (ICD-10) S/P tonsillectomy and adenoidectomy ?Z90.89 - Acquired absence of other organs (ICD-10) S/P total abdominal hysterectomy ?Z90.710 - Acquired absence of both cervix and uterus (ICD-10) Status post right knee replacement ?Z96.651 - Presence of right artificial knee joint (ICD-10) Status post bunionectomy ?Z98.890 - Other specified postprocedural states (ICD-10) Status post appendectomy ?Z90.49 - Acquired absence of other specified parts of digestive tract (ICD- 10) History of carpal tunnel surgery of left wrist (11/25/19) ?Z98.890 - Other specified postprocedural states (ICD-10) History of carpal tunnel surgery of right wrist (01/25/20) ?Z98.890 - Other specified postprocedural states (ICD-10) Family History Sister Breast cancer, Onset Age: 50 Family/Other Breast cancer Father Heart disease Social History Narrative: . Lives with in [place]. Ambulates independently but uses a cane when she goes outside for balance. She also has a golf cart that she used to get around. They live in a home without stairs on property owned by her son. Retired. Former smoker, 1/2 pack per day for 60 years, quit over 15 years ago. Rarely drinks alcoholic beverages. Does not use street or recreational drugs. Designates , Anjel Pires, as power of environmental attorney for health should that be required. Requests DNR, DNI resuscitation. Primary care physician is Dr. Ibarra. What is your current living situation?: I presently have a place to live Problems where you live: no known problems Problems where you live details: n/a In the past 12 months, utilities in danger of being shut off: no In past 12 months, lack of transportation kept you from medical appts, meetings, work, or getting things needed for daily living: no In the past 12 mos, have been you worried that your food would run out before you had money to buy more?: never true In the past 12 mos, the food you bought just didn't last and you didn't have money to buy more?: never true Smoking Status: Former smoker What tobacco products do you use: cigarettes Smoking packs per day: 0.5 Smoking cigarettes per day: 10.0 Smoking quit date/years: >15 years ago Do you use any of these nicotine containing products: None Second hand tobacco smoke exposure: No How often do you have a drink containing alcohol: monthly or less Alcohol type: wine Alcohol type details: pt reports drinking wine 1-2 times q6 months How often do you have six or more drinks on one occasion: Never AUDIT-C Alcohol total score: 1 Non-prescribed substance use: denies use Caffeine: Yes (pt reports 2 cups coffee/day) How often does anyone, including family, friends and others, physically hurt you : never How often does anyone, including family, friends and others, insult or talk down to you: never How often does anyone, including family, friends and others, threaten you with harm: never How often does anyone, including family, friends and others, scream or curse at you: never service: No Exam Narrative: Exam Narrative: Pleasant. Fully alert. Skin is warm and dry. There is some light erythema at the right side of her head/zygoma. Right forehead with some mild swelling. No crepitus or deformity or particular tenderness to palpation here. Cranial nerves 2-12 are intact and pupils are equal and appropriately reactive. Neck is supple nontender. Back nontender. Lungs are clear. Heart in regular rate rhythm. Abdomen is soft and nontender. No pain to palpation over the clavicles or shoulders. The right upper forearm has a 1 and 1/2 inch or so skin tear and a 1 above this. Flexes extends the elbow without apparent pain. There is some erythema/contusion over the right distal forearm. Was swelling and tenderness at the distal right radius. The left thumb though in particular is tender to manipulation with swelling that seems centered at the interphalangeal joint. A little bruising here as well. Const: Vital Signs, click to edit/add: Vital Signs - 24 hr 09/21/23 19:27 Temperature 99.0 F Pulse Rate [Left P ulse Oximeter] 62 Respiratory Rate 18 Blood Pressure [Ri ght Upper Arm] 156/94 H Pulse Oximetry 95 Oxygen Delivery Me thod Room Air Documenting provider has reviewed patient's vital signs: yes Course Vital Signs Vital signs: Initial Vital Signs Temperature 99.0 F 09/21/23 19:27 Temperature Source Temporal Artery Scan 09/21/23 19:27 Pulse Rate 62 09/21/23 19:27 Respiratory Rate 18 09/21/23 19:27 Blood Pressure 156/94 H 09/21/23 19:27 Blood Pressure Mean 114 H 09/21/23 19:27 Blood Pressure Position Supine 09/21/23 19:27 Pulse Oximetry 95 09/21/23 19:27 Oxygen Delivery Method Room Air 09/21/23 19:27 Vital Signs Temperature 99.0 F 09/21/23 19:27 Pulse Rate 62 09/21/23 19:27 Respiratory Rate 18 09/21/23 19:27 Blood Pressure 156/94 H 09/21/23 19:27 Pulse Oximetry 95 09/21/23 19:27 Oxygen Delivery Method Room Air 09/21/23 19:27 Temperature 99.0 F 09/21/23 19:27 Pulse Rate 62 09/21/23 19:27 Respiratory Rate 18 09/21/23 19:27 Blood Pressure 156/94 H 09/21/23 19:27 Pulse Oximetry 95 09/21/23 19:27 Oxygen Delivery Method Room Air 09/21/23 19:27 Medical Decision Making MDM Narrative Medical decision making narrative: I do not think that head imaging is necessary here. This does also appear to have been more of a trip and fall event in someone who has been prone to falls. The head injury seems to have been more of a scrape on the way down. Primary injuries involve scrape with skin tear about the right elbow and possible bony injury to the distal right forearm/wrist and injury of the left hand and thumb. Would image the wrist and thumb. She does not feel like she needs anything for pain at this time. Cleaned Shur-Clens and Hibiclens solution and placed Tegaderm and wrap over the right upper forearm area over the skin tears. X-ray of the right wrist does show distal radius fracture with mild displacement in mild dorsal angulation by my read but I do not think will require any reduction here. The x-ray of the left thumb does show fracture with I think some comminution at the base of the distal phalanx of the thumb Study:?XRay-Extremity Right WRIST-09/21/2023 8:24:03 PM Ordering Physician:RUTH Final Report: Indication: Trauma. Technique: Right wrist, 3 views. Comparison: None. Findings/Impression: Bones: Decreased osseous mineralization. Acute displaced distal radius fracture with minimal dorsal angulation. Joint spaces: Degenerative changes most pronounced about the triscaphe joint. Associated joint effusion Soft tissues: Associated soft tissue swelling. Study:?XRay-Extremity Left THUMB-09/21/2023 8:23:53 PM Ordering Physician:RUTH Final Report: Indication: Trauma. Technique: Left thumb, 3 views. Comparison: None. Findings/Impression: Bones: Decreased osseous mineralization. Acute mildly displaced comminuted fracture of the thumb distal phalangeal base. Joint spaces: Degenerative changes. Soft tissues: Associated soft tissue swelling. Did place dorsal volar splint on the right wrist and splint also the left thumb - large finger Stax. See patient discharge plan for further discussion/plan Discharge Plan Discharge Clinical Impression: Right wrist fracture, Hematoma, Closed head injury, Skin tear of right upper extremity, Fracture of thumb Patient Disposition: Home w/ Parent or Adult Condition: Improved Additional Instructions: 1st thing Saturday morning call to Orthopedics at phone number [phone] to request an appointment for later in the week for re-evaluation/casting. This is on recommendation from the emergency department. They can put you in maybe better fitting splints or casting. Can take up to 1000 mg of acetaminophen per dose. Over the next few days, you might ice the areas that hurt a couple of times daily. Check the wrap over the elbow daily. Ideally this transparent/Tegaderm dressing comes off on its own over time. You can trim the edges as it peels away so it does not come off all at once. By the time it comes off my hope is that this is adequately healed. You may need to cover it though with a nonstick dry dressing for a few more days at that point. Prescriptions: No Action budesonide-formoterol [Symbicort] 80-4.5 mcg/actuation HFA aerosol inhaler 2 puff inhalation BID methotrexate sodium 2.5 mg tablet 10 mg PO .SATURDAY folic acid 1 mg tablet 1 mg PO DAILY prednisone 5 mg tablet 2.5 mg PO DAILY albuterol sulfate 90 mcg/actuation HFA aerosol inhaler 2 puff INHALATION Q4H PRN losartan 100 mg tablet 100 mg PO DAILY atorvastatin 40 mg tablet 40 mg PO QHS gabapentin 100 mg capsule 200 - 400 mg PO TID Patient Comments: 200am, 200mg afternoon, 400mg qhs alendronate 70 mg tablet 70 mg PO SA@07 aspirin 81 mg capsule 81 mg PO DAILY calcium carbonate-vitamin D3 [Calcium 500 + D] 500 mg-10 mcg (400 unit) tablet 1 tab PO DAILY carvedilol 25 mg tablet 25 mg PO BID hydrochlorothiazide 12.5 mg capsule 12.5 mg PO DAILY ipratropium-albuterol 0.5 mg-3 mg(2.5 mg base)/3 mL solution for nebulization 3 ml inhalation QID PRNQty: 90 0RF potassium chloride 10 mEq tablet extended release 20 meq PO DAILY Qty: 60 0RF Follow Up/Referrals: Temi Ibarra MD [Primary Care Provider] - Stand Alone Forms: [employer] Info Instructions
--- NOTE | 2023-09-21 19:52 | XR_ITS ---
Patient: MARIA D PAZ Facility:?[facility] Patient ID:?[id number] Site Patient ID:?[id number] Site :?[id number] Study:?XRay-Extremity Left THUMB-09/21/2023 8:23:53 PM Ordering Physician:RUTH Final Report: Indication: Trauma. Technique: Left thumb, 3 views. Comparison: None. Findings/Impression: Bones: Decreased osseous mineralization. Acute mildly displaced comminuted fracture of the thumb distal phalangeal base. Joint spaces: Degenerative changes. Soft tissues: Associated soft tissue swelling. Dictated by Shaggy Barclay MD @ 09/21/2023 8:30:42 PM Signed by:?Shaggy Barclay MD @09/21/2023 8:30:42 PM (Electronic Signature)
--- NOTE | 2023-09-21 19:53 | XR_ITS ---
Patient: MARIA D PAZ Facility:?[facility] Patient ID:?[id number] Site Patient ID:?[id number] Site :?[id number] Study:?XRay-Extremity Right WRIST-09/21/2023 8:24:03 PM Ordering Physician:RUTH Final Report: Indication: Trauma. Technique: Right wrist, 3 views. Comparison: None. Findings/Impression: Bones: Decreased osseous mineralization. Acute displaced distal radius fracture with minimal dorsal angulation. Joint spaces: Degenerative changes most pronounced about the triscaphe joint. Associated joint effusion Soft tissues: Associated soft tissue swelling. Dictated by Shaggy Barclay MD @ 09/21/2023 8:27:38 PM Signed by:?Shaggy Barclay MD @09/21/2023 8:27:38 PM (Electronic Signature)
--- OUTSIDE RECORDS SUMMARY | 2023-09-21 20:00 | XMS_ITS | Clinical Summary ---
Author Name Unknown Organization [employer] [facility] Address [place], [place] [address] Care Team Providers Care Veneer Supervisor Name Role Phone Temi Ibarra MD Primary Care Provider Allergies Active Allergy Reactions Criticality Noted Date Comments Amlodipine Syncope,Vomiting 04/30/2011 Lisinopril Cough 02/05/2011 cough Penicillins 11/03/2007 Sulfa (Sulfonamide Antibiotics) 10/06 Medications Medication Sig Dispensed Refills Start Date End Date Status aspirin chewable 81 mg chewable tablet Chew 81 mg by mouth once daily with a meal. Active calcium carbonate-vitamin D3, 500 mg-400 units, (Calcium 500 With D) tablet Take 1 Tablet by mouth once daily. Active mv-mn/folic ac/calcium/vit K1 (WOMEN'S 50 PLUS MULTIVITAMIN ORAL) Take 1 Capsule by mouth once daily. Active nitroglycerin (NITROSTAT) 0.4 mg sublingual tabletIndications :STEMI involving right coronary artery (HC) Place 1 Tablet (0.4 mg) under the tongue every 5 minutes if needed for Chest Pain. 25 tablet. 3 05/14/2021 Active triamcinolone (ARISTOCORT; KENALOG) 0.1 % creamIndications: Dermatitis APPLY TO AFFECTED AREA(S) TOPICALLY 3 TIMES DAILY 80 g 3 12/22/2021 Active NebulizerIndicati ons:COPD exacerbation (HC) Nebulizer, disposable neb kit x 4, reuseable neb kit x 1, mask x 1, filters x 1. Frequency of use: daily; Medication: duoneb Length of need: 99 months 1 Each 06/15/2022 Active losartan (COZAAR) 100 mg tabletIndications :Essential hypertension Take 1 Tablet (100 mg) by mouth once daily. 100 Tablet 3 09/17/2022 Active potassium chloride (MICRO-K) 10 mEq Controlled-releas e capsule Take 20 mEq by mouth once daily. 11/26/2022 Active budesonide-formot Jae (Symbicort) 80-4.5 mcg/actuation (80-4.5 mcg each actuation) inhalerIndication s:COPD with chronic bronchitis (HC) Inhale 2 Puffs by mouth two times daily. 10.2 g 11 12/21/2022 Active predniSONE (DELTASONE) 5 mg tabletIndications :Polyarthritis with positive rheumatoid factor (HC) 1 tab orally daily 90 Tablet 1 02/20/2023 Active atorvastatin (LIPITOR) 40 mg tabletIndications :STEMI involving right coronary artery (HC) TAKE 1 TABLET BY MOUTH AT BEDTIME 100 Tablet 2 02/24/2023 Active hydroCHLOROthiazi de 12.5 mg capsuleIndication s:Coronary artery disease, unspecified vessel or lesion type, unspecified whether angina present, unspecified whether [place] or transplanted heart TAKE 1 CAPSULE BY MOUTH ONCE DAILY 100 Capsule 2 03/21/2023 Active albuterol HFA (PRO-AIR; VENTOLIN; PROVENTIL) 90 mcg/actuation inhalerIndication s:COPD exacerbation (HC) Inhale 2 Puffs by mouth every 4 hours if needed for Shortness Of Breath or Wheezing. 25.5 g 5 04/15/2023 Active alendronate (FOSAMAX) 70 mg tabletIndications :Osteoporosis without current pathological fracture, unspecified osteoporosis type TAKE 1 TABLET BY MOUTH EVERY SATURDAY IN THE MORNING ON AN EMPTY STOMACH WITH A FULL GLASS OF WATER , DO NOT LIE DOWN FOR 1 HOUR 12 Tablet 3 04/26/2023 Active methotrexate (RHEUMATREX) 2.5 mg tabletIndications :Seropositive rheumatoid arthritis (HC) TAKE 4 TABLETS BY MOUTH EVERY SATURDAY 51 Tablet 06/24/2023 Active omeprazole (PRILOSEC) 40 mg Delayed-Release capsuleIndication s:Chronic GERD Take 1 Capsule (40 mg) by mouth once daily before a meal. 30 Capsule 1 07/29/2023 Active albuterol-ipratro pium (DUONEB) (2.5-0.5 mg) in 3 mL NEBULIZATION solutionIndicatio ns:COPD exacerbation (HC) USE 1 VIAL VIA NEBULIZER 4 TIMES A DAY 1080 mL 08/28/2023 Active folic acid 1 mg tabletIndications :Seropositive rheumatoid arthritis (HC) TAKE 1 TABLET(1 MG) BY MOUTH EVERY DAY 90 Tablet 08/29/2023 Active carvediloL (COREG) 25 mg tabletIndications :STEMI involving right coronary artery (HC),Essential hypertension TAKE 1 TABLET BY MOUTH TWICE DAILY WITH MEALS 200 Tablet 09/07/2023 Active gabapentin (NEURONTIN) 100 mg capsuleIndication s:Paresthesia TAKE 2 CAPSULES BY MOUTH IN THE MORNING , 3 CAPSULES MIDDAY, AND 3 CAPSULES IN THE EVENING 800 Capsule 09/07/2023 Active albuterol-ipratro pium (DUONEB) (2.5-0.5 mg) in 3 mL NEBULIZATION solutionIndicatio ns:COPD exacerbation (HC) Inhale 3 mL via a nebulizer 4 times daily. 1080 mL 2 08/06/2022 08/28/19 24 Discontinued gabapentin (NEURONTIN) 100 mg capsuleIndication s:Paresthesia TAKE 2 CAPSULES BY MOUTH IN THE MORNING , 3 CAPSULES MIDDAY, AND 3 CAPSULES IN THE EVENING 800 Capsule 3 09/17/2022 09/07/19 24 Discontinued carvediloL (COREG) 25 mg tabletIndications :STEMI involving right coronary artery (HC),Essential hypertension TAKE 1 TABLET BY MOUTH TWICE DAILY WITH MEALS 200 Tablet 2 12/05/2022 09/07/19 24 Discontinued folic acid 1 mg tabletIndications :Seropositive rheumatoid arthritis (HC) Take 1 Tablet (1 mg) by mouth once daily. 90 Tablet 1 02/20/2023 08/29/19 24 Discontinued Active Problems Problem Noted Date Diagnosed Date Acute on chronic respiratory failure with hypoxe jasper 07/29/2023 Acute on chronic congestive heart failure, unspecified heart failure type 07/29/2023 Coronary artery disease invo lving [place] coronary artery of [place] heart without angina pectoris 06/25/2023 Enlarged and hypertrophic nails 04/21/2020 Claw toe, right 04/21/2020 Lymphocytic colitis 06/02/2019 Overview: flexible sigmoidoscopy 05/2019 lymphocytic colitis Claw toe, acquired, unspecified laterality 02/12 Diverticulitis of colon (without mention of hemo rrhage) 11/27/2010 Diverticulosis of colon (without mention of hemo rrhage) 11/27/2010 Allergic rhinitis, cause unspecified 08/08/2009 Osteoarthrosis, unspecified whether generalized or localized, unspecified site 11/03/2007 Overview: S/P hip replacement Osteoporosis, unspecified 11/03/2007 Overview: Improved after 5 years of fosamax. Suggest stopping fosamax and recheck in 2 years. Deepa Suazo M.D. 08/18/2014 8:52 PM health care maintenance 11/03/2007 Overview: Dexa 2007, osteoporosis, will repeat 2014. colonoscopy 2005, will get BE in 2011 or 2012 Had shingles about 07/2011. Consider zostavax 5 years from that infection Hyperlipidemia 10/21/2006 Unspecified essential hypertension STEMI involving right coronary artery PVD (peripheral vascular disease) Resolved Problems Problem Noted Date Diagnosed Date Resolved Date COPD with chronic bronchitis 09/02/2018 10/27/2018 Diverticulitis of colon (wit hout mention of hemorrhage) 06/21/2009 11/21/2009 Bacterial pneumonia, unspecified 10/21/2006 11/21/2009 Acute respiratory failure with hypoxia 06/06/2022 Encounters Date Type Department Care Team Description 09/05/2023 Refill [facility] [address] [place] [address] Temi Ibarra MD Refill Request (Carvedilol, Gabapentin) 08/28/[address] [place] [address] Edi Collado MBBS Refill Request (Folic Acid) 08/28/[address] [place] [address] Edi Collado MBBS Refill Request (Folic Acid) 08/27/2023 Refill [facility] [address] [place] [address] Temi Ibarra MD Refill Request (Albuterol-ipratrop ium) 08/14/2023 3:15 PM CDT Office Visit [facility] [address] [place] [address] Temi Ibarra MD Hospital F/U ([facility] COVID-19 and spinal issues. Had MRI done and was referred to spinal surgeon ) 08/14/2023 Travel 08/13/2023 9:40 AM CDT Office Visit [facility] at [facility] [address] [facility] [place] [address] Bhavin Tello MD Procedure (Left L5-S1 TFESI) 08/05/2023 Transcribe Orders [facility] [address] [place] [address] Bhavin Tello MD 07/29/2023 11:35 AM CDT Office Visit [facility] [address] [place] [address] Lori Awad PA [facility] F/U (Acute respiratory failure - COVID-19 ) 07/29/2023 Refill [facility] [address] [place] [address] Lori Awad PA Refill Request (Omeprazole) 07/29/2023 Travel 07/28/2023 Refill [facility] [address] [place] [address] Temi Ibarra MD Refill Request (Albuterol Hfa) 07/20/2023 Orders Only [facility] Scanner 1 scan: (1-Ord) [facility], XRAY CHEST 2V , 07/20/2023 07/18/2023 11:00 AM CDT Office Visit [facility] [address] [place] [address] Larry Schaeffer MD Follow Up (Aortic aneurysm, unspecified portion of aorta, unspecified whether ruptured) 07/18/2023 Orders Only [facility] Scanner 1 scan: (1-Ord) [facility], MR LUMBAR SPINE WO CON, 07/18/2023 07/18/2023 Travel 07/10/2023 11:30 AM AGATE SETTER Ancillary Procedure [facility] [address] [place] [address] 07/10/2023 Travel 07/05/2023 Telephone [facility] [address] [place], [place] [id number] Larry Schaeffer MD Follow Up 07/01/2023 1:00 PM AGATE SETTER Office Visit [facility] [address] [place] [address] Edi Collado MBBS Follow Up (Pt is here for f/u on her RA. /Pain level today is a 2/10. /Wants to get off of the methotrexate./) 07/01/2023 Travel 06/25/2023 10:00 AM AGATE SETTER Office Visit [facility] at [facility] [address] [place] [address] David Valle MD Follow Up (Arteriosclerotic heart disease) 06/25/2023 Travel from Last 3 Months Immunizations Name Administration Dates Next Due AMB INFLUENZA IIV3 (AGE 65+ YRS) PF (Flu Clinic Only) 02/11/2018,02/26/2017 AMB Influenza, IIV3 (Age >=3 years)(Flu Clinic Only) 03/11/2013,03/02/2010,02/08/2009,2007 Amb Influenza, Inact (High-d ose Quadrivalent) (Flu Clinic Only) 01/28/2020 Amb Influenza, Inact (High-d ose) (Flu Clinic Only) 03/01/2016 COVID-19 Vaccine Spikevax (M oderna 50mcg/0.5mL) 12YO+ [id number] Formula PF 03/08/2023 COVID-19 vaccine (AirgainBio NTech 30mcg/0.3mL) 12YO+ BIVALENT PF, MDV 03/28/2022 COVID-19 vaccine (Pfizer-Bio NTech 30mcg/0.3mL) 12YO+ ALEXANDRO-SUCROSE PF, MDV 11/29/2021 COVID-19 vaccine ([employer] NTech 30mcg/0.3mL) PF, MDV 03/01/2021,07/02/2020,06/11/2020 Influenza A (H1N1), Inactiva sera (Age >=3 Years) 05/16/2009 Influenza, High-dose Inactivated 03/16/2015,01/04 Influenza, IIV3 (Age >=3 years) 03/04/20 12,02/05/2011,03/21/2007,2005,03/13/2005,02/24/2004,03/04/2003 Influenza, Inactivated AIIV4 (Age 65+ Years) Preserv Free 02/22/2023,01/22/2022,02/22/2021 Pneumococcal Poly,23-Valent (Pneumovax) 11/17/2003 Pneumococcal conj 13-Valent (Prevnar 13) 08/17/2014 Td (Age >=7 Years) 08/11/1999 Td, Preservative Free (age > = 7 Years) 11/27/2010 Tdap 01/08/2023,03/04/2012 Zoster (Shingrix-RZV, recombinant) 11/12/2018, Zoster (Zostavax-ZVL, live) 07/27/2016 Family History Medical History Relation Name Comments Heart Disease Father Cancer-breast Other x 2 Maternal Cancer-breast Sister 2 Relation Name Status Comments Father (Age 56) [place] Mother (Age 86) liver canc er Other Sister 1 multiple myelom a Sister 2 Social History Tobacco Use Types Packs/Day Years Used Date Smoking Tobacco: Former Cigarettes 0.5 61.2 S tarted: 07/09/1962 Smokeless Tobacco: Never Tobacco Cessation:Counseling Given: Yes Comments:Quit smoking 17 years ago 10/02/2019 Alcohol Use Standard Drinks/Week Comments Not Currently 0 (1 standard drink = 0.6 oz pur e alcohol) rarely PHQ-2 Answer Date Recorded PHQ-2 TOTAL SCORE 0 09/17/2022 Social Connections Answer Date Recorded Frequency of Communication with Friends and Fami ly 0 07/29/2023 Financial Resource Strain Answer Date R ecorded Difficulty of Paying Living Expenses 3 07/29/2023 Difficulty of Paying Living Expenses Not on file 07/29/2023 Food Insecurity Answer Date Recorded Worried About Running Out of Food in the Last Ye ar 1 07/29/2023 Transportation Needs Answer Date Record ed Lack of Transportation (Medical) 1 07/29/2023 Housing Stability Answer Date Recorded Unable to Pay for Housing in the Last Year 1 07/29/2023 Sex and Gender Information Value Date Recorded Sex Assigned at Not on file Gender Identity Not on file Sexual Orientation Not on file Obstetrics History Para Term AB IAB SAB Ectopic Multiple Livin g Live Births 6 6 5 1 5 Date Outcome GA Total Labor Labor/2nd/3rd Weight Sex Delivery Anes PTL Pamela A1 A5 Name Cl in Term Term Term Term Term Last Filed Vital Signs Vital Sign Reading Time Taken Comments Blood Pressure 172/71 08/14/2023 3:33 PM CDT Pulse 62 08/14/2023 3:33 PM CDT Temperature 36.9 ??C (98.5 ??F) 05/16/2021 8:00 AM CS T Respiratory Rate 16 07/09/2022 9:44 AM AGATE SETTER Oxygen Saturation 98% 08/14/2023 3:33 PM CDT Inhaled Oxygen Concentration - - Weight 55.8 kg (123 lb) 08/14/2023 3:33 PM CDT Height 154.9 cm (5' 1) 01/21/2023 1:59 PM CDT Body Mass Index 23.24 01/21/2023 1:59 PM CDT Plan of Treatment Upcoming Encounters Date Type Department Care Team (Late st Contact Info) Description 10/11/2023 11:20 AM CDT Office Visit [facility] [address] [place] [address] Temi Ibarra MD [address] [place] [address] 10/31/2023 12:00 PM CDT Phone Office Visit [address] [place] [address] Edi Collado MBBS [address] [place] [address] [place] [id number] Health Maintenance Due Date Last Done Comments Medicare Wellness for age 65+ 09/03/2019 09/02/2018, 07/30/2016 COVID-19 vaccine series ( season) 2023 03/08/2023, 03/28/2022, 11/29/2021, Additional history exists Depression screening for age 12+ 09/19/2023 09/18/2022, 09/18/2022, 09/17/2022, Additional history exists Influenza for age 65+ 01/05/2024 02/22/2023 , 01/22/2022, 02/22/2021, Additional history exists BMI (ht and wt on same day) for age 18+ 01/22/2024 01/21/2023, 09/17/2022, 06/21/2022, Additional history exists Tetanus booster 01/08/2033 01/08/2023, 02/05, 11/27/2010, Additional history exists Pneumococcal series for age 65+ Completed 5, 11/17/2003 Zoster (shingles) series for age 50+ Completed 11/12/2018, 09/01/2018, 07/27/2016 DEXA/DXA scan for age 65+ Completed 2018, 08/20/2016, 08/17/2014, Additional history exists Tdap Completed 01/08/2023, 03/04/2012 Procedures Procedure Name Priority Date/Time Associated Diagnosis Comments AMB EPIDURAL STEROID INJECTION Routine 08/13/2023 12:00 AM CDT Spinal stenosis of lumbar region with neurogenic claudication CBC WITH AUTO DIFFERENTIAL Routine 07/29/2023 12:15 PM CDT Pancytopenia (HC) BASIC METABOLIC PANEL Routine 07/29/2023 12:15 PM CDT Hypokalemia CBC WITH AUTO DIFFERENTIAL Routine 07/29/2023 12:15 PM CDT Pancytopenia (HC) SCAN-RADIOLOGY REPORT 07/20/2023 12:00 AM CDT SCAN-MRI INTERPRETATION 07/18/2023 12:00 AM CDT CTA CHEST Routine 07/10/2023 11:56 AM AGATE SETTER Aortic aneurysm, unspecified portion of aorta, unspecified whether ruptured (HC) CBC WITH AUTO DIFFERENTIAL Routine 07/01/2023 2:11 PM AGATE SETTER Seropositive rheumatoid arthritis (HC) CBC WITH AUTO DIFFERENTIAL Routine 07/01/2023 2:11 PM AGATE SETTER Seropositive rheumatoid arthritis (HC) BASIC METABOLIC PANEL Routine 07/01/2023 2:11 PM AGATE SETTER Seropositive rheumatoid arthritis (HC) ALT (SGPT) Routine 07/01/2023 2:11 PM AGATE SETTER Seropositive rheumatoid arthritis (HC) AST (SGOT) Routine 07/01/2023 2:11 PM AGATE SETTER Seropositive rheumatoid arthritis (HC) C-REACTIVE PROTEIN Routine 07/01/2023 2: 11 PM AGATE SETTER Seropositive rheumatoid arthritis (HC) SEDIMENTATION RATE Routine 07/01/2023 2: 11 PM AGATE SETTER Seropositive rheumatoid arthritis (HC) XR DXA BONE DENSITY 2 SITES AXIAL Routine 01/27/2019 9:10 AM CDT Menopause from Last 3 Months or Most Recently Relevant to Health Maintenance Results * AMB EPIDURAL STEROID INJECTION (08/13/2023 12:00 AM CDT) Bhavin Tello MD NEUROLOGY ORD * (ABNORMAL) CBC WITH AUTO DIFFERENTIAL (07/29/2023 12:15 PM CDT) Only the most recent of2 resultswithin the time period is included. Pathologist [facility] WHITE BLOOD COUNT 9.2 4.5 - 11.0 thou/cu mm 07/29/2023 10:[address] [facility] RED BLOOD COUNT 4.27 4.00 - 5.20 mil/cu mm 07/29/2023 10:[address] [facility] HEMOGLOBIN 13.7 12.0 - 16.0 g/dL 07/29/2023 10:[address] [facility] HEMATOCRIT 41.1 33.0 - 51.0 % 07/29/2023 10:[address] [facility] MCV 96 80 - 100 fL 07/29/2023 10:[address] [facility] MCH 32.1 26.0 - 34.0 pg 07/29/2023 10:[address] [facility] MCHC 33.3 32.0 - 36.0 g/dL 07/29/2023 10:[address] [facility] RDW 16.1(H) 11.5 - 15.5 % 07/29/2023 10:[address] [facility] PLATELET COUNT 230 140 - 440 thou/cu mm 07/29/2023 10:[address] [facility] MPV 10.8 6.5 - 11.0 fL 07/29/2023 10:[address] [facility] % NEUT 75.5 % 07/29/2023 10:00 PM CDT [facility] % LYMPH 9.7 % 07/29/2023 10:00 PM CDT [facility] % MONO 12.9 % 07/29/2023 10:00 PM T [facility] % EOS 0.6 % 07/29/2023 10:00 PM T [facility] % BASO 0.1 % 07/29/2023 10:00 PM T [facility] % IMMATURE GRAN (METAS,MYELOS,MO OS) 1.2 % 07/29/2023 10:00 PM CDT [facility] ABSOLUTE NEUTROPHILS 7.7(H) 1.7 - 7.0 thou/cu mm 07/29/2023 10:00 PM CDT [facility] ABSOLUTE LYMPHOCYTES 1.0 0.9 - 2.9 thou/cu mm 07/29/2023 10:00 PM CDT [facility] ABSOLUTE MONOCYTES 1.3(H) <0.9 thou/cu mm 07/29/2023 10:00 PM CDT [facility] ABSOLUTE EOSINOPHILS 0.1 <0.5 thou/cu mm 07/29/2023 10:00 PM CDT [facility] ABSOLUTE BASOPHILS 0.0 <0.3 thou/cu mm 07/29/2023 10:00 PM CDT [facility] ABSOLUTE IMMATURE GRANULOCYTES(MET ,MYELOS,PROS) 0.1 <0.3 thou/cu mm 07/29/2023 10:00 PM CDT [facility] Blood BLOOD SPECIMEN / Unknown Venipuncture / Unknown 07/29/2023 12:15 PM CDT 07/29/2023 12:16 PM CDT Lori CHANEY HEMATOLOGY [facility] [address] [place] [address], [address] [address], * (ABNORMAL) BASIC METABOLIC PANEL (07/29/2023 12:15 PM CDT) Only the most recent of2 resultswithin the time period is included. SODIUM 144 136 - 145 mmol/L 07/29/2023 10:26 PM CDT [facility] POTASSIUM 4.5 3.5 - 5.1 mmol/L 07/29/2023 10:26 PM CDT [facility] CHLORIDE 104 98 - 107 mmol/L 07/29/2023 10:26 PM CDT [facility] CO2,TOTAL 28 22 - 29 mmol/L 07/29/2023 10:26 PM CDT [facility] ANION GAP 12 5 - 18 07/29/2023 10:26 PM CDT [facility] GLUCOSE 92 70 - 99 mg/dL 07/29/2023 10:26 PM CDT [facility] CALCIUM 10.0 8.8 - 10.2 mg/dL 07/29/2023 10:26 PM CDT [facility] BUN 23 8 - 23 mg/dL 07/29/2023 10:26 PM CDT [facility] CREATININE 0.97(H) 0.50 - 0.90 mg/dL 07/29/2023 10:26 PM CDT [facility] BUN/CREAT RATIO 24(H) 10 - 20 10:26 PM CDT [facility] eGFR 56(L) >90 mL/min/1.7 3m2 07/29/2023 10:26 PM CDT [facility] Comment:As of 2021, eG FR is calculated by the CKD-EPI creatinine equation without race adjustment. ??eGFR can be influenced by muscle mass, exercise, and diet. ??The reported eGFR is an estimation only and is only applicable if the renal function is stable. Blood BLOOD SPECIMEN / Unknown Venipuncture / Unknown 07/29/2023 12:15 PM CDT 07/29/2023 12:16 PM CDT [facility]ori [facility]ANEY [facility]STRY [facility] [address] [place] [address], * SCAN-RADIOLOGY REPORT (07/20/2023 12:00 AM CDT) Anatomical Region Laterality Modality Other Scanner OTHER * SCAN-MRI INTERPRETATION (07/18/2023 12:00 AM CDT) Anatomical Region Laterality Modality Other Scanner OTHER * CTA CHEST (07/10/2023 11:56 AM AGATE SETTER) Anatomical Region Laterality Modality CHEST Computed Tomogra phy 07/10/2023 3:38 PM AGATE SETTER Narrative 07/10/2023 3:38 PM AGATE SETTER For Patients: ??As a result of the Century Cures Act, medical imaging exams and procedure reports are released immediately into your electronic medical record. ??You may view this report before your referring provider. ??If you have questions, please contact your health care provider. Indication: Aortic aneurysm follow-up Technique: CTA chest. 100 cc Omnipaque 350 intravenous contrast. Please note that all CT scans at this facility use dose modulation, iterative reconstruction, and/or weight-based dosing when appropriate to reduce radiation dose to as low as reasonably achievable. 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 This is unchanged compared to the prior study. Associated partially thrombosed aneurysm is also similar measuring up to 2.3 cm. Extensive atherosclerotic changes are present. There is no pulmonary embolism. No aortic dissection. Cysts arising from the right kidney are present measuring up to 6.3 cm. Small partially visualized left renal cyst. Stone in the gallbladder is present measuring 1.6 cm. No hiatal hernia. Decreased size of intrathoracic lymph nodes compared to the prior study. The esophagus appears improved. The left proximal humerus is not included on this exam. Emphysematous changes with patchy areas of scarring. 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 Please note that all CT scans at this facility use dose modulation, iterative reconstruction, and/or weight-based dosing when appropriate to reduce radiation dose to as low as reasonably achievable. Dictated by Piyush Doll MD @ 07/10/2023 3:38:37 PM (Electronically Signed) Procedure Note Piyush Doll MD - 07/10/2023 For Patients: As a result of the Century Cures Act, medical imagingexams and procedure reports are released immediately into your electronicmedical record. You may view this report before your referring provider.If you have questions, please contact your health care provider. Indication: Aortic aneurysm follow-up Technique: CTA chest. 100 cc Omnipaque 350 intravenous contrast. Please note that all CT scans at this facility use dose modulation,iterative reconstruction, and/or weight-based dosing when appropriate toreduce radiation dose to as low as reasonably achievable. Comparison: 07/09/2022 Findings: Focal penetrating ulcer with associated aneurysm at the proximaldescending aorta again noted measuring up to 12 millimeters. This isunchanged compared to the prior study. Associated partially thrombosedaneurysm is also similar measuring up to 2.3 cm. Extensive atheroscleroticchanges are present. There is no pulmonary embolism. No aortic dissection.Cysts arising from the right kidney are present measuring up to 6.3 cm.Small partially visualized left renal cyst. Stone in the gallbladder ispresent measuring 1.6 cm. No hiatal hernia. Decreased size ofintrathoracic lymph nodes compared to the prior study. The esophagusappears improved. The left proximal humerus is not included on this exam.Emphysematous changes with patchy areas of scarring. Impression: No significant interval change in the focal penetrating ulcer withassociated partially thrombosed aneurysm involving the proximal descendingaorta. Please note that all CT scans at this facility use dose modulation,iterative reconstruction, and/or weight-based dosing when appropriate toreduce radiation dose to as low as reasonably achievable. Dictated by Piyush Doll MD @ 07/10/2023 3:38:37 PM (Electronically Signed) Larry Schaeffer MD CT * SEDIMENTATION RATE (07/01/2023 2:11 PM AGATE SETTER) SEDIMENTATION RATE 5 <30 mm/hr 2023 2:50 PM AGATE SETTER [facility] Blood BLOOD SPECIMEN / Unknown Venipuncture / Unknown 07/01/2023 2:11 PM AGATE SETTER 07/01/2023 2:11 PM AGATE SETTER [facility] HEMATOLOGY Performing Organization Address City/[facility]/ZIP Co de Phone Number [facility] [place] [address] * (ABNORMAL) C-REACTIVE PROTEIN (07/01/2023 2:11 PM AGATE SETTER) C-REACTIVE PROTEIN 0.5(H) <0.5 mg/dL 07/01/2023 3:48 PM AGATE SETTER [facility] Blood BLOOD SPECIMEN / Unknown Venipuncture / Unknown 07/01/2023 2:11 PM AGATE SETTER 07/01/2023 2:11 PM AGATE SETTER [facility] CHEMISTRY [facility] [address] [place] [address] * ALT (SGPT) (07/01/2023 2:11 PM AGATE SETTER) ALT (SGPT) 21 10 - 35 IU/L 07/01/2023 3:48 PM AGATE SETTER [facility] Blood BLOOD SPECIMEN / Unknown Venipuncture / Unknown 07/01/2023 2:11 PM AGATE SETTER 07/01/2023 2:11 PM AGATE SETTER [facility] CHEMISTRY Performing Organization Address [facility] Co de Phone Number [facility] [address] [place] [address] * AST (SGOT) (07/01/2023 2:11 PM AGATE SETTER) AST (SGOT) 23 10 - 35 IU/L 07/01/2023 3:48 PM AGATE SETTER [facility] Blood BLOOD SPECIMEN / Unknown Venipuncture / Unknown 07/01/2023 2:11 PM AGATE SETTER 07/01/2023 2:11 PM AGATE SETTER [facility] CHEMISTRY Performing Organization Address [facility] de Phone Number [address] [address] * (ABNORMAL) XR DXA BONE DENSITY 2 SITES AXIAL (01/27/2019 9:10 AM CDT) Anatomical Region Laterality Modality Spine, HIPS, HIPL, HIPR Other Narrative 02/06/2019 4:24 PM CDT Please see scanned document for results of this study. Temi Ibarra MD DEXA from Last 3 Months or Most Recently Relevant to Health Maintenance Advance Directives * DNR (Latest Code Status on File) Date Activated Date Inactivated Comments 05/13/2021 4:25 PM 05/16/2021 3:23 PM Question Answer Comments Code Status Discussion: Reviewed Preferences * Full Code Date Activated Date Inactivated Comments 05/12/2021 2:01 PM 05/13/2021 4:25 PM Question Answer Comments Code Status Discussion: Reviewed Preferences Care Teams Veneer Supervisor Relationship Specialty Start Date End Date Temi [place] [place] [address] PCP - General Family Practice 06/25/17
--- OUTSIDE RECORDS SUMMARY | 2023-09-21 20:00 | XMS_ITS | Continuity of Care Document ---
Author Name Unknown Organization [facility] Address [address] [address] [place] [address] Phone Care Team Providers Care Director Of Vocational Guidance Name Role Phone Bryan Wiley MD Unavailable Unavailable Advance Directives Directive Yes / No Effective Date File Name No Information Encounters Encounter Description Practice Location Reason(s) For Visit Diagnoses Date Provider Providers Copied on Encounter [facility], [address] [address], [place], [place], [id number], [place] tel:[phone] [facility] No Information Inez Adams. [address] [facility], [facility] [address], [place], [place], [id number], [place]. tel:[phone] Family History Family Member Type Diagnosis Age At Onset No Information Payers Payer name Insurance type Covered alliance party ID Authoriza tion(s) No Information Social History Type Description Quantity Date Captured Comments Sex Female Smoking Status No Information Chief Complaint And Reason For Visit No Information Reason For Referral Reason For Referral No Information History Of Present Illness Encounter Date Complaint History Of Prese nt Illness No Information Functional Status Date Functional Assessmen t No Information Instructions Date Instruction Additional Infor mation No Information Assessments Type Assessment Date No Information Patient Care Teams Name Effective Dates (start - stop) Status Members No Information
== END 2023-09-21 21:39 | disposition home or self-care (01) ==
PROVIDERS: Emergency Provider Family Medicine; PCP Family Medicine
DX: S62.521A Displaced fracture of distal phalanx of right thumb, initial encounter for closed fracture (principal); S52.501A Unspecified fracture of the lower end of right radius, initial encounter for closed fracture; W19.XXXA Unspecified fall, initial encounter
CPT/HCPCS: 29125; 73110; 73140; 99284

== ENCOUNTER 2023-10-23 12:50 | Outpatient (CLI) | payer MEDICARE, SELFPAY ==
--- OUTSIDE RECORDS SUMMARY | 2023-10-23 12:53 | XMS_ITS | Clinical Summary ---
Author Organization [facility] Address [place], [place] [address] Care Team Providers Care Cook Taco Name Role Phone Temi Ibarra MD Primary [...] need: 99 months 1 Each 06/15/2022 Active potassium chloride (MICRO-K) 10 mEq Controlled-releas [...] type, unspecified whether angina present, unspecified whether little river or transplanted heart TAKE 1 CAPSULE BY [...] IN THE EVENING 800 Capsule 09/07/2023 Active losartan (COZAAR) 100 mg tabletIndications :Essential hypertension TAKE 1 TABLET BY MOUTH ONCE DAILY 100 Tablet 09/28/2023 Active losartan (COZAAR) 100 mg tabletIndications :Essential hypertension Take 1 Tablet (100 mg) by mouth once daily. 100 Tablet 3 09/17/2022 09/28/19 24 Discontinued Active Problems Problem Noted Date Diagnosed Date Acute on chronic diastolic (congestive) heart fa ilure 10/11/2023 Ventricular tachycardia 10/11/2023 Acute on chronic respiratory failure with hypoxe jasper 07/29/2023 Acute on chronic congestive heart failure, unspecified heart failure type 07/29/2023 Coronary artery disease invo lving little river coronary artery of little river heart without angina pectoris 06/25/2023 Enlarged and [...] PM health care maintenance 11/03/2007 Overview: Dexa 2008, osteoporosis, will repeat 2014. colonoscopy 2005, will get BE in 2011 or 2013 Had shingles about 07/2011. Consider zostavax 5 [...] Encounters Date Type Department Care Team Description 10/11/2023 11:20 AM CDT Office Visit [facility] [address] [place] [address] Temi Ibarra MD ER Follow up (09/21/23 Tripped and fell. Left thumb and right wrist along with the abrasions on right arm was advised to go to the wound clinic for it) 10/11/2023 Travel 10/01/2023 Refill [facility] [address] [place] [address] Temi Ibarra MD Refill Request (Losartan) 09/26/2023 Refill [facility] [address] [place] [address] Temi Ibarra MD Refill Request (Losartan) 09/21/2023 Orders Only [facility] Scanner 1 scan: (1-Ord) [facility], XR WRIST RIGHT MIN 3V, 09/21/2023 09/21/2023 Orders Only [facility] Scanner 1 scan: (1-Ord) [facility], XR THUMB LEFT, 09/21/2023 09/05/2023 Refill [facility] [address] [place] [address] Temi Ibarra MD Refill Request (Carvedilol, Gabapentin) 08/28/2023 Refill [facility] [address] [place] [address] Edi Collado MBBS Refill Request (Folic Acid) 08/28/2023 Refill [facility] [address] [place] [address] Edi Collado MBBS Refill Request (Folic Acid) 08/27/2023 Refill [facility] [address] [place] [address] Temi Ibarra MD Refill Request (Albuterol-ipratrop ium) 08/14/2023 3:15 PM CDT Office Visit [facility] [address] [place] [address] Temi Ibarra MD Hospital F/U ([facility] COVID-19 and spinal issues. Had MRI done and was referred to spinal surgeon ) 08/14/2023 Travel 08/13/2023 9:40 AM CDT Office Visit [facility] [address] [place] [address] Bhavin Tello MD Procedure (Left L5-S1 TFESI) 08/05/2023 Transcribe Orders [facility] [address] [place] [address] Bhavin Tello MD 07/29/2023 11:35 AM CDT Office Visit [facility] [address] [place] [address] Lori Awad PA Hospital F/U (Acute respiratory failure - COVID-19 ) 07/29/2023 Refill [facility] [address] [place] [address] Lori Awad PA Refill Request (Omeprazole) 07/29/2023 Travel 07/28/2023 Refill [facility] [address] [place] [address] Temi Ibarra MD Refill Request (Albuterol Hfa) from Last 3 Months Immunizations Name Administration Dates Next Due AMB INFLUENZA IIV3 (AGE 65+ YRS) PF (Flu Clinic Only) 02/11/2018,02/26/2017 AMB Influenza, IIV3 (Age >=3 years)(Flu Clinic Only) 03/11/2013,03/02/2010,02/08/2009,2007 Amb Influenza, Inact (High-d ose Quadrivalent) (Flu Clinic Only) 01/28/2020 Amb Influenza, Inact (High-d ose) (Flu Clinic Only) 03/01/2016 COVID-19 Vaccine Spikevax (M oderna 50mcg/0.5mL) 12YO+ [id number] Formula PF 03/08/2023 COVID-19 vaccine (Pfizer-Bio NTech 30mcg/0.3mL) 12YO+ BIVALENT PF, MDV 03/28/2022 COVID-19 vaccine (Pfizer-Bio NTech 30mcg/0.3mL) 12YO+ ALEXANDRO-SUCROSE PF, MDV 11/29/2021 COVID-19 vaccine (Pfizer-Bio NTech 30mcg/0.3mL) PF, MDV 03/01/2021,07/02/2020,06/11/2020 Influenza A [...] Relation Name Status Comments Father (Age 56) [place] Mother (Age 86) liver canc er Other Sister 1 multiple myelom a Sister 2 Social History Tobacco Use Types Packs/Day Years Used Date Smoking Tobacco: Former Cigarettes 0.5 61.3 S tarted: 07/09/1962 Smokeless Tobacco: Never Tobacco [...] Outcome GA Total Labor Labor/2nd/3rd Weight Sex Type Anes PTL Pamela A1 A5 Name Clin Term Term Term Term Term Last Filed Vital Signs Vital Sign Reading Time Taken Comments Blood Pressure 153/81 10/11/2023 11:26 AM CDT Pulse 52 10/11/2023 11:26 AM CDT Temperature 36.9 ??C (98.5 ??F) 05/16/2021 8:00 AM CS T Respiratory Rate 16 07/09/2022 9:44 AM TAIL RIPPER Oxygen Saturation 95% 10/11/2023 11:26 AM CDT Inhaled Oxygen Concentration - - Weight 55.9 kg (123 lb 3.2 oz) 10/11/2023 11:26 AM CDT Height 154.9 cm (5' 1) 01/21/2023 1:59 PM CDT Body Mass Index 23.28 01/21/2023 1:59 PM CDT Plan of Treatment Upcoming Encounters Date Type Department Care Team (Late st Contact Info) Description 10/31/2023 12:00 PM CDT Phone Office Visit [place] [id number] [place] [place] [address] Edi Collado MBBS [address] [facility] [place] [address] Health Maintenance Due Date Last Done Comments [...] Procedure Name Priority Date/Time Associated Diagnosis Comments SCAN-RADIOLOGY REPORT 09/21/2023 12:00 AM CDT SCAN-RADIOLOGY REPORT 09/21/2023 12:00 AM CDT AMB EPIDURAL STEROID INJECTION Routine 08/13/2023 12:00 AM CDT Spinal stenosis of lumbar region with neurogenic claudication CBC WITH AUTO DIFFERENTIAL Routine 07/29/2023 12:15 PM CDT Pancytopenia (HC) BASIC METABOLIC PANEL Routine 07/29/2023 12:15 PM CDT Hypokalemia CBC WITH AUTO DIFFERENTIAL Routine 07/29/2023 12:15 PM CDT Pancytopenia (HC) XR DXA BONE DENSITY 2 SITES AXIAL Routine 01/27/2019 9:10 AM CDT Menopause from Last 3 Months or Most Recently Relevant to Health Maintenance Results * SCAN-RADIOLOGY REPORT (09/21/2023 12:00 AM CDT) Only the most recent of2 resultswithin the time period is included. Anatomical Region Laterality Modality Other Scanner OTHER * AMB EPIDURAL STEROID INJECTION (08/13/2023 12:00 AM CDT) Bhavin Tello MD NEUROLOGY ORD * (ABNORMAL) CBC WITH AUTO DIFFERENTIAL (07/29/2023 12:15 PM CDT) WHITE BLOOD COUNT 9.2 4.5 - 11.0 thou/cu mm 07/29/2023 10:00 PM CDT [facility] RED BLOOD COUNT 4.27 4.00 - 5.20 mil/cu mm 07/29/2023 10:00 PM CDT [facility] HEMOGLOBIN 13.7 12.0 - 16.0 g/dL 07/29/2023 10:00 PM CDT [facility] HEMATOCRIT 41.1 33.0 - 51.0 % 07/29/2023 10:00 PM CDT [facility] MCV 96 80 - 100 fL 07/29/2023 10:00 PM CDT [facility] MCH 32.1 26.0 - 34.0 pg 07/29/2023 10:00 PM CDT [facility] MCHC 33.3 32.0 - 36.0 g/dL 07/29/2023 10:00 PM T [facility] RDW 16.1(H) 11.5 - 15.5 % 07/29/2023 10:00 PM T [facility] PLATELET COUNT 230 140 - 440 thou/cu mm 07/29/2023 10:00 PM T [facility] MPV 10.8 6.5 - 11.0 fL 07/29/2023 10:00 PM T [facility] % NEUT 75.5 % 07/29/2023 10:[address] [facility] % LYMPH 9.7 % 07/29/2023 10:[address] [facility] % MONO 12.9 % 07/29/2023 10:00 PM [facility] % EOS 0.6 % 07/29/2023 10:[address] [facility] % BASO 0.1 % 07/29/2023 10:[address] [facility] % IMMATURE GRAN (METAS,MYELOS,SD OS) 1.2 % 07/29/2023 10:[address] [facility] ABSOLUTE NEUTROPHILS 7.7(H) 1.7 - 7.0 thou/cu mm 07/29/2023 10:[address] [facility] ABSOLUTE LYMPHOCYTES 1.0 0.9 - 2.9 thou/cu mm 07/29/2023 10:00 PM T [facility] ABSOLUTE MONOCYTES 1.3(H) <0.9 thou/cu mm 07/29/2023 10:00 PM T [facility] ABSOLUTE EOSINOPHILS 0.1 <0.5 thou/cu mm 07/29/2023 10:00 PM T [facility] ABSOLUTE BASOPHILS 0.0 <0.3 thou/cu mm 07/29/2023 10:00 PM T [facility] ABSOLUTE IMMATURE GRANULOCYTES(MET ,MYELOS,PROS) 0.1 <0.3 thou/cu mm 07/29/2023 10:00 PM CDT [facility] Blood BLOOD SPECIMEN / Unknown Venipuncture / Unknown 07/29/2023 12:15 PM CDT 07/29/2023 12:16 PM CDT Lori CHANEY HEMATOLOGY [facility] [address] [place] [address], [facility] [address] [place] [address], * (ABNORMAL) BASIC METABOLIC PANEL (07/29/2023 12:15 PM CDT) SODIUM 144 136 - 145 mmol/L 07/29/2023 10:26 PM CDT [facility] POTASSIUM 4.5 3.5 - 5.1 mmol/L 07/29/2023 10:26 PM CDT [facility] CHLORIDE 104 98 - 107 mmol/L 07/29/2023 10:26 PM CDT [facility] CO2,TOTAL 28 22 - 29 mmol/L 07/29/2023 10:26 PM CDT [facility] ANION GAP 12 5 - 18 07/29/2023 10:26 PM CDT [facility] GLUCOSE 92 70 - 99 mg/dL 07/29/2023 10:26 PM CDT [facility] CALCIUM 10.0 8.8 - 10.2 mg/dL 07/29/2023 10:26 PM CDT [facility] BUN 23 8 - 23 mg/dL 07/29/2023 10:26 PM CDT [facility] CREATININE 0.97(H) 0.50 - 0.90 mg/dL 07/29/2023 10:26 PM CDT [facility] BUN/CREAT RATIO 24(H) 10 - 20 10:26 PM CDT [facility] eGFR 56(L) >90 mL/min/1.7 3m2 07/29/2023 10:[address] [facility] Comment:As of 2021, eG FR is calculated by the CKD-EPI creatinine equation without race adjustment. ??eGFR can be influenced by muscle mass, exercise, and diet. ??The reported eGFR is an estimation only and is only applicable if the renal function is stable. Blood BLOOD SPECIMEN / Unknown Venipuncture / Unknown 07/29/2023 12:15 PM CDT 07/29/2023 12:16 PM CDT Lori CHANEY CHEMISTRY [facility] [address] [place] [address], * (ABNORMAL) XR DXA BONE DENSITY 2 [...] Code Status Discussion: Reviewed Preferences Care Teams Cook Taco Relationship Specialty Start Date End Date Temi Ibarra MD [address] [place] [address] PCP - General Family Practice 06/25/17
== END 2023-10-23 12:51 | disposition home or self-care (01) ==
LOC: WOUND 12:50
PROVIDERS: PCP Family Medicine; Visit Provider Surgery
DX: S40.811A Abrasion of right upper arm, initial encounter (principal); W19.XXXA Unspecified fall, initial encounter; J44.9 Chronic obstructive pulmonary disease, unspecified; R54 Age-related physical debility
CPT/HCPCS: G0463

== ENCOUNTER 2024-01-21 09:56 | Outpatient (CLI) | payer MEDICARE, SELFPAY | END 2024-01-21 09:57 | disposition home or self-care (01) | LOC: INJ CL 09:56 | PROVIDERS: PCP Family Medicine; Visit Provider Family Medicine | DX: M54.16 Radiculopathy, lumbar region (principal); M51.36 Other intervertebral disc degeneration, lumbar region | CPT/HCPCS: 62323; J0702; Q9966 ==

== ENCOUNTER 2024-02-21 13:00 | Outpatient (RCR) | payer MEDICARE, SELFPAY ==
--- NOTE | 2023-08-28 17:55 | PT.OPEX ---
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 OF NOTE, COMPARISON TO CT SHOWS NO CHANGE IN SPONDYLOLISTHESIS AND FORAMINAL STENOSIS AT L5-S1 AND NO CHANGE IN RIGHT DISC HERNIATION/DISC COLLAPSE AT L4 -5. L3-4 CENTRAL STENOSIS IS ALSO UNCHANGED IN THE INTERVAL ALTHOUGH THE PROGRESSIVE DISCH HEIGHT IS NARROWING Therapy Limitations/Systems Review Hearing Objective Other/Pertinent Objective Posture Assessment: RIGHT SHIFT UPPER TRUNK SHIFT, FWD TRUNK POSTURING LUMBAR ROM Flexion: UNABLE D/T PAIN Extension: UNABLE D/T PAIN Right Side bend: 6 FROM KNEE JOINT LINE Left Side bend: UNABLE D/T PAIN LE MMT Hip flexion: R 4/5 L4 /5 Hip Extension: NT D/T PAIN Hip abduction: R 4/5 L 4/5 knee extension: R 5/5 L 5/5 Knee Flexion: R 5/5 L 5/5 Dorsiflexion/heel walk: UNABLE D/T BALANCE AND INCREASED PAIN Plantarflexion/toe walk: UNABLE D/T BALANCE AND INCREASED PAIN Great Toe Extension: R 5/5 L 5 /5 JOINT MOBILITY/PALPATION: LEFT LUMBAR PARASPINAL, PROXIMAL> MID GLUT PAIN SPECIAL TESTS Straight leg raise: (-) Crossed straight leg raise: (- ) Slump test: (+) Quadrant test: (+) SI/HIPI tests NICK (-) FADIR (-) SCOUR PAIN L>R Gil[place] Test: (-) Standing forward bend Test: UNABLE Gapping and Compression test: PAINFUL TX: SUPINE TRUNK ROTATION (TO TOLERANCE) SUPINE ABDOMINAL BRACING SUPINE MARCHING SUPINE DKTC Assessment Assessment/Impression PATIENT IS AN [address] AMARAL TO EVAL AND TX SPINAL STENOSIS; PMHX INCLUDES BUT NOT LIMITED TO RA, CHROINIC INFLAMMATORY ARTHRITIS, AORTIC ARCH ANEURYSM, PNA, OSTEOPOROSIS, COPD, R RTC PATHOLOGYM H/O L HUMERAL FX, HLD, HTN, DIVERTICULITIS OF COLON, LYMPHOCYTIC COLITIS, PVD, H/O RECENT COVID W/ACUTE RESPIRATORY FAILURE, STEMI ( RIGHT CORONARY ARTERY), H/O RIGHT TKA, R/L CTS, RIGHT [place]ST[place]. PATIENT RECEIVED AN EPIDURAL 2 WEEKS AGO WITH MINIMAL CHANGE IN HER SYMPTOMS THAT SHE DESCRIBES CONSTANT PAIN IN HER LEFT FLANK, DOWN GLUT TO LATERAL HIP AND INTERMITTENT QUAD. SHE REPORTS HAVING COVID A MONTH AGO WHERE SHE WAS PREDOMINATELY SEDENTARY DURING HER RECOVERY LAYING HER BACK. HER MRI INDICATES, SHE HAS CHRONIC STRUCTURAL CHANGES (SEE ABOVE) THAT HAVE NOT CHANGED SINCE HER CT IN 2021. SHE RESPONDED WELL WITH MANUAL SUPINE HOOKLYING TRACTION IN REGARD TO SYMPTOM RELIEF. HER PATIENT CENTERED GOAL IS TO AVOID SURGERY AND RETURN TO HER PREVIOUS LEVEL OF FUNCTION SO THAT SHE CAN TEND TO HER [place]ARD[place] THIS YEAR. SHE DEMONSTRATES S/S CONSISTENT WITH STENOSIS AND FACET ARTHROPATHY WITH NERVE ROOT COMPRESSION. SHE IS APPROPRIATE FOR SKILLED PHYSICAL THERAPY FOR SYMPTOM MGMT, TEACH BODY MECHANICS AND POSTURING, CORE/BLE STRENGTHENING, WELL DECOMPRESSION. WE WILL TRIAL MANUAL TRACTION AND IMPROVE HER CORE STABILITY WITH GOAL OF RETURN TO ASYMPTOMATIC LEVEL OF FUNCTION. PATIENT IS IN AGREEMENT WITH POC AND FREQ . Primary Functional Limitations SLEEPING, BED MOBILITY, TRANSFERS, STANDING, PROLONGED SITTING, STAIRS, ADL'S, IADL' S Plan of Care Rehabilitation Potential Fair Physical Therapy Goals STG (4-6 WEEKS): 1. PATIENT WILL REPORT PAIN </ 3/10 DURING DAILY ACTIVITIES AND WITH DAILY PARTICIPATION WITH HIS HEP 2. PATIENT WILL REPORT THE ABILITY TO STAND >10 MIN TO ENABLE COOKING, GROOMING, AND OTHER IADL'S 3. PATIENT WILL VERBALIZE A GOOD UNDERSTANDING OF BODY MECHANICS DURING HIS DAILY ACTIVITIES ALONG WITH PROPER LIFTING TECHNIQUES FOR GOOD BACK CARE AND WITH SYMPTOM MGMT. LTG (8 WEEKS): 1. PATIENT WILL IMPROVE NOT ONLY FLEXIBILITY BUT BOTH CORE STRENGTH AND STABILITY TO IMPROVE POSTURING DURING DAILY ACTIVITIES INCLUDING IADL'S AND PEER CENTERED ACTIVITIES. 2. PATIENT WILL VERBALIZE GOOD UNDERSTANDING OF CORE STABILITY TO MAINTAIN AND FURTHER PROGRESS HIS FUNCTIONAL MOBILITY AND TOLERANCE TO PROLONGED POSITIONING. 3. PATIENT WILL DEMONSTRATE COMPLETE INDEPENDENCE AND THE ABILITY TO PROGRESS HIS HEP FOR MAINTENANCE AND CONTINUED IMPROVEMENT OF HIS CORE / BLE STRENGTH AND STABILITY. Coordination/Communication With Referral Source,Traffic Line Painter ( [facility]) Treatment Plan/Direct Interventions Electrical Stimulation,Gait Training,Heat,Ice/Cold/ Vasopneumatic,Joint Mobilization,Manual Therapy, Neuromuscular Re-ed,Self-Care/ Home Management,Therapeutic Activities,Therapeutic Exercises Frequency/Duration 1-2 X 4-6 WKS Patient Will Be Discharged From Therapy Completion of LTG(s), Independently Progressing Evaluation Billing Untimed Code Treatment Minutes 20 PT Eval No Charge No Complexity Moderate Certification Information Initial Certification Date 08/27/23 Ending Certification Date 11/24/23 Provider Signature Shows Agreement With POC & Medical Necessity Physician Signature & Date Requested Please Sign/Date Here Physician Comment/Change : Physician NPI Number #
--- NOTE | 2023-11-22 16:22 | OT.OPOE ---
OT Outpatient Ortho Eval OT Outpatient Ortho Eval* Start: 11/21/23 12:23 Freq: Status: Active Protocol: Document 11/22/23 13:07 AMB (Rec: 11/22/23 16:17 AMB [id number]) E-signed By Kenyetta Cortez, OTR/L, CLT, WINDOW MACHINE OPERATOR OT OP Ortho Eval Details Complexity Complexity Low Insurance Information Insurance Information Medicare B Insurance Information Comments MC cert due 02/20/24 Outpatient History/Precautions Current Condition/Medical Diagnosis Referring Provider Jeff Ryan PA-C Medical Diagnoses S52.522 Displaced fx of the DP of LUE thumb S52.591A Fx of lower end of RUE radius Treatment Diagnosis Weakness, and mild Limited AROM, LUE thumb / hand and RUE hand, wrist and forearm. Date of Onset 09/21/23 Other Conditions PMH (copied from ER documentation): Medical History (Reviewed 11/26 @ 07:07 by Piyush Em MD) ST elevation myocardial infarction (STEMI) I21.3 - ST elevation (STEMI) myocardial infarction of unspecified site (ICD-10) Pneumonia J18.9 - Pneumonia, unspecified organism (ICD-10) Gastroenteritis K52.9 - Noninfective gastroenteritis and colitis, unspecified (ICD-10) Fracture of multiple ribs S22.49XA - Multiple fractures of ribs, unspecified side, initial encounter for closed fracture (ICD-10) Encounter for pre-operative examination Z01.818 - Encounter for other preprocedural examination (ICD -10) Contusion of right lung S27.321A - Contusion of lung, unilateral, initial encounter (ICD-10) Benign paroxysmal positional vertigo H81.10 - Benign paroxysmal vertigo, unspecified ear (ICD- 10) Cognitive impairment R41.89 - Other symptoms and signs involving cognitive functions and awareness (ICD- 10) Coronary artery disease I25.10 - Atherosclerotic heart disease of [place] coronary artery without angina pectoris (ICD-10) Rheumatoid arthritis M06.9 - Rheumatoid arthritis, unspecified (ICD-10) Chronic inflammatory arthritis M19.90 - Unspecified osteoarthritis, unspecified site (ICD-10) 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 - Aneurysm of the aortic arch, without rupture ( ICD-10) Heart failure with preserved ejection fraction I50.30 - Unspecified diastolic (congestive) heart failure ( ICD-10) Pneumonia J18.9 - Pneumonia, unspecified organism (ICD-10) History of flexible sigmoidoscopy Z98.890 - Other specified postprocedural states (ICD-10) Claw toe, acquired M20.5X9 - Other deformities of toe(s) (acquired), unspecified foot (ICD-10) Shingles B02.9 - [place] without complications (ICD-10) Osteoporosis M81.0 - Age-related osteoporosis without current pathological fracture (ICD-10) Chronic obstructive pulmonary disease J44.9 - Chronic obstructive pulmonary disease, unspecified (ICD-10) Allergic rhinitis J30.9 - Allergic rhinitis, unspecified (ICD-10) Diverticulosis K57.90 - Diverticulosis of intestine, part unspecified, without perforation or abscess without bleeding (ICD-10) Acute infective exacerbation of chronic obstructive airway disease J44.1 - Chronic obstructive pulmonary disease with (acute) exacerbation (ICD-10) 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 - Unspecified rotator cuff tear or rupture of right shoulder, not specified as traumatic (ICD-10) M12.811 - Other specific arthropathies, not elsewhere classified, right shoulder ( ICD-10) Closed left humeral fracture S42.302A - Unspecified fracture of shaft of humerus, left arm, initial encounter for closed fracture (ICD-10) Hyperlipemia E78.5 - Hyperlipidemia, unspecified (ICD-10) Essential (primary) hypertension I10 - Essential (primary) hypertension (ICD-10) Diverticulitis of colon ( without mention of hemorrhage) K57.32 - Diverticulitis of large intestine without perforation or abscess without bleeding (ICD-10) Lymphocytic colitis K52.832 - Lymphocytic colitis (ICD-10) Acquired claw toe of right foot M20.5X1 - Other deformities of toe(s) (acquired), right foot (ICD-10) Enlarged and hypertrophic nails Q84.5 - Enlarged and hypertrophic nails (ICD-10) Peripheral vascular disease I73.9 - Peripheral vascular disease, unspecified (ICD-10) Acute respiratory failure with hypoxia J96.01 - Acute respiratory failure with hypoxia (ICD-10) ST elevation (STEMI) myocardial infarction involving right coronary artery I21.11 - ST elevation (STEMI) myocardial infarction involving right coronary artery (ICD-10) Surgical History (Reviewed 11/26 @ 07:07 by Piyush Em MD) History of total left hip replacement (~2003) Z96.642 - Presence of left artificial hip joint (ICD-10) S/P tonsillectomy and adenoidectomy Z90.89 - Acquired absence of other organs (ICD-10) S/P total abdominal hysterectomy Z90.710 - Acquired absence of both cervix and uterus (ICD-10 ) Status post right knee replacement Z96.651 - Presence of right artificial knee joint (ICD-10) Status post bunionectomy Z98.890 - Other specified postprocedural states (ICD-10) Status post appendectomy Z90.49 - Acquired absence of other specified parts of digestive tract (ICD-10) History of carpal tunnel surgery of left wrist () Z98.890 - Other specified postprocedural states (ICD-10) History of carpal tunnel surgery of right wrist () Z98.890 - Other specified postprocedural states (ICD-10) Medications: albuterol sulfate 90 mcg/ actuation 2 puffs inhalation Q4H PRN alendronate 70 mg PO SA@07 aspirin 81 mg PO DAILY atorvastatin 40 mg PO QHS budesonide-formoterol 80-4.5 mcg/actuation (Symbicort) 2 puffs inhalation BID calcium carbonate-vitamin D3 500 mg-10 mcg (400 unit) ( Calcium 500 + D) 1 tab PO DAILY carvedilol 25 mg PO BID folic acid 1 mg PO DAILY gabapentin 200 - 400 mg PO TID hydrochlorothiazide 12.5 mg PO DAILY ipratropium-albuterol 0.5 mg-3 mg(2.5 mg base)/3 mL 3 mL inhalation QID PRN losartan 100 mg PO DAILY methotrexate sodium 10 mg PO . SATURDAY potassium chloride ER 20 mEq ( 2 x 10 mEq) PO DAILY prednisone 2.5 mg PO DAILY Medical/Functional History Medical History Reviewed Yes Prior Level of Function/Mobility Pt lives with her in a home that is owned by their son. The home does not have steps. Pt is independent in ambulation but uses a cane when outdoors. Pt also gets around outside with a golf cart. Pt enjoys gardening and sewing. Pt states she is independent with all of her personal cares, had to help her initially, but she no longer needs help. Pt states she is having difficulty with dropping her fork/spoon, its hard to write, sometimes it's hard to brush her teeth, pt states she still can drive but she has not driven since her fall. Pt states she really enjoys sewing but she cannot hold on to the needle and she prefers to hand stitch vs using her machine. Pt denies any pain, left thumb is a little sore but she states it's not painful. Pt has not been wearing either splint and feels she is doing better without them. Social History Physical Barriers in Home Environment Level, No Step Employment Status Retired Ortho Subjective Subjective Subjective Pt denies pain, she has discontinued her splints and feels she no longer needs them . Pt's goals are to return to her ability to sew and to be able to eat without dropping her silverware and brush her teeth without dropping her toothbrush, Pain Assessment Pain Pain No Goniometric Comments Goniometric Comments Goniometric Comments 11/22/23 AROM of the RUE hand/wrist/ forearm: Forearm Pro/Sup: WNL Wrist: Flex/ext:WFL, mild limitations due to advanced RA UD/RD: WNL Composite fist:DPC Opposition: Base of SF AROM of the LUE hand/wrist/ forearm: Forearm Pro/Sup: Full Wrist: WFL, mild limitations due to advanced RA Flex/ext:WFL, limitations due to advanced arthritis UD/RD: Full Composite fist: DPC Opposition: Base of SF LUE thumb IPJ limted to 40 deg vs 70 on the RUE OT Problems Problems Problems Decreased Strength,Decreased Range of Motion,Decreased Dexterity,Pain,Decreased Coordination,Lifting,Gripping, Pinching Other Problems Writing,Opening Containers, Fasteners Patient Potential Good Assessment Assessment Assessment Pt is a very pleasant 88yo female who is doing remarkably well following LUE thumb fx and RUE DR fx with complicating factors of 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 Pt denies pain, reports mild stiffness in her left thumb but is most concerned about her hands feeling weak which has lead to her having difficulty holding on to her eating utensils and her toothbrush, also states that she isn't able to sew which is one of her favorite hobbies. Pt will benefit from skilled OT intervention to address ROM limits and BUE hand weakness in order to restore full, pain -free functional grasp and use of BUE / PLOF. Occupational Therapy Treatment Plan - OP Potential Rehabilitation Potential Good Barriers Barriers to goal attainment Pt has advanced OA with bone on bone in multiple joints of the RUE wrist, moderate to severe OA in BUE hands Set Goals Goals Set with Patient Yes Goals Goals 1. Pt will be independent and compliant with HEP in order to resume full, pain-free use of the BUE. 3 weeks 2. Pt will demonstrate functional, pain-free AROM of BUE hands, wrists and forearms and left UE thumb in order to improve ability to grasp and hold. 6 weeks 3. Pt will demonstrate functional, pain-free personal injury paralegal and pinch strength comparable average for age and gender in order to improve functional grasp, hold, reach, and lifting ability needed to complete self-care, leisure tasks such as sewing. 8 weeks. Target Date 02/22/24 Treatment Plan Treatment Plan Evaluation,Edema Control,Joint Mobilization,Manual Therapy, Splinting,Therapeutic Exercise ,Therapeutic Activities,Self Care/Home Management,Cryogenics Engineer Training,Education Expected Frequency 1-2x Week Expected Duration 8-10 Weeks Home Program Home Program Home Program Initiated Home Program Specifics Provided training and practice in HEP for resisted personal injury paralegal, tip pinch, and lateral pinch in order to restore functional grasp and pinch. Pt was provided with written instructions and extra light putty for use at home as well. Certification Certification Statement I Certify That: Therapy Services Provided, Therapy Plan Established, Therapy Plan Reviewed Certification Information Clinic ID # [id number] Initial Certification Date 11/22/23 Recertification Due Date 02/20/24 Provider Signature Required Yes Provider Signature Shows Agreement With POC & Medical Necessity Physician NPI Number Write NPI# Here Physician Comment/Change Comment or Changes Physician Signature & Date Requested Please Sign/Date Here
== END 2024-02-21 16:27 | disposition home or self-care (01) ==
PROVIDERS: PCP Family Medicine; Visit Provider Family Medicine
DX: S62.522A Displaced fracture of distal phalanx of left thumb, initial encounter for closed fracture (principal); S52.591A Other fractures of lower end of right radius, initial encounter for closed fracture; M48.00 Spinal stenosis, site unspecified; R53.1 Weakness; Z74.09 Other reduced mobility; Z51.89 Encounter for other specified aftercare
CPT/HCPCS: 97032; 97110; 97112; 97140; 97162; 97165; X5282